=== PATIENT | male | born 1955 | race African-American/Black ===

== ENCOUNTER 2016-09-25 13:43 | Inpatient (IN) | payer OTHER, SELFPAY ==
[~2016-09-25] VITALS: Ht 172.7 cm; Wt 59.9 kg
[~2016-09-25 13:43] MED LIST: UNOBMED
[2016-09-25] MEDS ORDERED: Albuterol ud Inhalation HHN ONE (14:15)
--- NOTE | 2016-09-25 14:28 | Emergency Room Report ---
History of Present Illness General Chief Complaint: Altered Mental Status Source: Patient, EMS Present Illness HPI 61 [address] by EMS for ?AMS. Initially patient allegedly non verbal. To me, he is providing HPI. Endorses undomiciled. Denies smoking, ETOH , drugs or known medical problems. Denies chest pain, abd pain. Endorses + cough. Denies urinary complaints, URI symptoms. Feels well otherwise. Allergies: Coded Allergies: No Known Allergies (Verified , 01/25/10) Patient History Past Medical History: none Past Surgical History: none Pertinent Family History: none Social History: Denies: alcohol use, drug use, smoking Immunizations: UTD Reviewed Nursing Documentation: PMH: Agreed, PSxH: Agreed Nursing Documentation-PMH Past Medical History: No History, Except For Hx Seizures: Yes Review of Systems All Other Systems: negative except mentioned in HPI Physical Exam Vital Signs Date Time Temp Pulse Resp B/P Pulse Ox O2 Delivery O2 Flow Rate FiO2 09/25/16 13:36 102.0 116 20 168/99 96 Room Air Sp02 EP Interpretation: abnormal General Appearance: normal inspection, well appearing, no apparent distress, alert, GCS 15, non-toxic, other - disheveled, malodorous Head: normocephalic, atraumatic Eyes: bilateral eye EOMI, bilateral eye PERRL ENT: normal ENT inspection, hearing grossly normal, normal voice Neck: normal inspection, full range of motion, supple, no bony tend Respiratory: normal inspection, decreased breath sounds, wheezing Cardiovascular #1: tachycardia Gastrointestinal: normal inspection, normal bowel sounds, non tender, soft, no guarding, no hernia Genitourinary: no CVA tenderness Musculoskeletal: normal inspection, back normal, normal range of motion, Valente' s Sign negative Neurologic: normal inspection, alert, responsive, manager semiconductor III-XII nml as tested, speech normal Psychiatric: normal inspection, judgement/insight normal, mood/affect normal Medical Decision Making Diagnostic Impression: Primary Impression: Altered level of consciousness Additional Impressions: Fever Qualified Codes: R50.9 - Fever, unspecified Pneumonia Qualified Codes: J18.9 - Pneumonia, unspecified organism ER Course 61 YO M with ?AMS. VS notable for tachycardia, fever. Hypertensive. No focal neuro deficits. Endorsing cough. Lungs rhocherous. ?PNA Labs: No leuks. H&H stable. Mild HypoNa. Lactate normal CXR: no obvious lobar PNA EKG significant for sinus tachy Fever resolved with IVF hydration, tylenol Patient has not given urine Empiric Abx Levofloxacin given for possible PNA vs UTI vs flu Doubt meningitis as no meningeal signs or focal deficits and well appearance despite disheveled/undomiciled Endorsed to Dr Bailey at 330pm for tele admission EKG Diagnostic Results Rate: tachycardiac Rhythm: NSR ST Segments: no acute changes ASA given to the pt in ED: No Rhythm Strip Diag. Results EP Interpretation: yes Rate: 102 Rhythm: NSR, no PVC's, no ectopy Chest X-Ray Diagnostic Results EP Interpretation: Yes Findings: no effusion, no pneumothorax, no acute cardiopulmonary disease Number of Views: 1 Last Vital Signs Date Time Temp Pulse Resp B/P Pulse Ox O2 Delivery O2 Flow Rate FiO2 09/25/16 13:36 102.0 116 20 168/99 96 Room Air Status: improved Disposition: ADMITTED INPATIENT Condition: Serious Referrals: [facility],REFERRING (PCP) KIM COOK M.D. Sep 25, 2016 14:28
[2016-09-25 15:13] VITALS: BP 183/67
[2016-09-25] MEDS ORDERED: NKM (15:16)
[2016-09-25 15:27] LABS: BASOPHILS % (AUTO) 1.1 % (0.0-2.0); EOSINOPHILS % (AUTO) 0.1 % (0.0-3.0); LYMPHOCYTES % (AUTO) 11.9 % (20.0-45.0); MEAN CORPUSCULAR HEMOGLOBIN 29.6 PG (27.0-31.0); MEAN CORPUSCULAR HGB CONC 32.3 G/DL (32.0-36.0); MEAN CORPUSCULAR VOLUME 92 FL (80-99); MEAN PLATELET VOLUME 5.9 FL (6.5-10.1); MONOCYTES % (AUTO) 10.2 % (1.0-10.0); NEUTROPHILS % (AUTO) 76.8 % (45.0-75.0); PLATELET COUNT 276 K/UL (150-450); RED BLOOD COUNT 4.11 M/UL (4.70-6.10); RED CELL DISTRIBUTION WIDTH 12.1 % (11.6-14.8); WHITE BLOOD COUNT 8.2 K/UL (4.8-10.8)
[2016-09-25 15:33] LABS: ALANINE AMINOTRANSFERASE 13 U/L (3-41); ANION GAP 15 (5-15); ASPARTATE AMINO TRANSFERASE 33 U/L (5-40); CALCIUM 9.1 mg/dL (8.6-10.2); CARBON DIOXIDE 24 mEQ/L (20-30); CHLORIDE 93 mEQ/L (98-107); CREATININE 0.9 mg/dL (0.7-1.2); GLOMERULAR FILTRATION RATE > 60 mL/min (>60); HEMOLYSIS 27; POTASSIUM 4.3 mEQ/L (3.4-4.9); SODIUM 132 mEQ/L (135-145); TOTAL PROTEIN 7.3 g/dL (6.6-8.7)
[2016-09-25 15:42] LABS: TROPONIN I < 0.30 ng/mL (<=0.30)
[2016-09-25] MEDS ORDERED: DuoNeb 0.5-3(2.5)mg/3ml neb HHN PRN (16:00)
[2016-09-25] MEDS ORDERED: Miralax 17gm pkt ORAL PRN (16:00)
[2016-09-25] MEDS ORDERED: Nitroglycerin Subl 0.4mg tab (Bottle Of 25) SL PRN (16:00)
[2016-09-25] MEDS ORDERED: Morphine Sulfate 2mg/ml Inj IVP PRN (16:00)
[2016-09-25 16:04] LABS: APPEARANCE,URINE CLEAR; KETONES,URINE 1+ (NEGATIVE); LEUKOCYTE ESTERASE ,URINE 1+ (NEGATIVE); NITRITE,URINE NEGATIVE (NEGATIVE); PH,URINE 8 (4.5-8.0); PROTEIN,URINE 2+ (NEGATIVE); UROBILINOGEN,URINE 1 MG/DL (0.0-1.0)
[2016-09-25 16:12] LABS: BACTERIA,URINE FEW /HPF; RBC,URINE 0-2 /HPF (0 - 0); WBC,URINE 0-2 /HPF (0 - 0)
[2016-09-25 16:13] VITALS: BP 151/96
--- NOTE | 2016-09-25 16:19 | Diagnostic Imaging Report ---
Indication: SOB Technique: One view of the chest Comparison: none Findings: There is proliferative bony deformity of the right acromion, with bridging bone seen connecting to the coracoid process. The lungs and pleural space are clear. Heart size is normal. Impression: No acute process Right coracoclavicular bony abnormality, could indicate prior trauma or developmental abnormality. Correlate with clinical history
[2016-09-25] MEDS ORDERED: Lidocaine 2% 20mg/ml/Epi 0.005mg/ml 20ml vial ONE (16:41)
[2016-09-25] MEDS ORDERED: Lidocaine 2% MPF 5ml Vial INJ ONE (16:42)
[2016-09-25 18:47] VITALS: BP 141/71
[2016-09-25 20:57] VITALS: BP 138/81
[2016-09-25] MEDS ORDERED: Heparin 5000 units/ml inj SUBQ SCH (21:00)
[2016-09-25] MEDS ORDERED: Cefepime HCl 2 GM in D5W 110 ML IV SCH (21:00)
[2016-09-25 22:45] VITALS: BP 156/94
[2016-09-25] MEDS ORDERED: Vancomycin 1gm in D5W 275ml IVPB SCH (23:00)
[2016-09-25] MEDS ORDERED: Cefepime 2gm ONE (23:28)
[2016-09-25] MEDS: Cefepime HCl 2 GM in D5W 110 ML IV SCH (23:41)
[2016-09-26] MEDS ORDERED: Vancomycin 1gm in D5W 275ml IVPB SCH ×2
[2016-09-26] MEDS ORDERED: Vancomycin 1gm inj IVPB ONE (00:28)
[2016-09-26] MEDS ORDERED: Vancomycin 1 GM in D5W 275 ML IV SCH (00:30)
[2016-09-26 00:34] VITALS: BP 153/95
[2016-09-26 04:00] VITALS: BP 158/89
[2016-09-26 08:07] LABS: BASOPHILS % (AUTO) 1.1 % (0.0-2.0); LYMPHOCYTES % (AUTO) 22.2 % (20.0-45.0); MEAN CORPUSCULAR HEMOGLOBIN 31.1 PG (27.0-31.0); MEAN CORPUSCULAR HGB CONC 34.2 G/DL (32.0-36.0); MEAN CORPUSCULAR VOLUME 91 FL (80-99); MEAN PLATELET VOLUME 6.1 FL (6.5-10.1); NEUTROPHILS % (AUTO) 56.6 % (45.0-75.0); PLATELET COUNT 268 K/UL (150-450); RED BLOOD COUNT 4.02 M/UL (4.70-6.10); RED CELL DISTRIBUTION WIDTH 11.7 % (11.6-14.8); WHITE BLOOD COUNT 4.6 K/UL (4.8-10.8)
[2016-09-26 08:17] VITALS: BP 142/87
[2016-09-26 08:26] LABS: ALANINE AMINOTRANSFERASE 11 U/L (3-41); ALBUMIN/GLOBULIN RATIO 1.1 (1.0-2.7); ANION GAP 14 (5-15); ASPARTATE AMINO TRANSFERASE 29 U/L (5-40); CALCIUM 9.1 mg/dL (8.6-10.2); CARBON DIOXIDE 25 mEQ/L (20-30); CHLORIDE 99 mEQ/L (98-107); CREATININE 0.9 mg/dL (0.7-1.2); GLOMERULAR FILTRATION RATE > 60 mL/min (>60); HEMOLYSIS 8; POTASSIUM 3.7 mEQ/L (3.4-4.9); SODIUM 138 mEQ/L (135-145); TOTAL PROTEIN 6.6 g/dL (6.6-8.7)
[2016-09-26] MEDS ORDERED: Influenza Virus Vaccine 0.5ml IM ONE (09:00)
[2016-09-26] MEDS: Heparin 5000 units/ml inj SUBQ SCH ×3 (09:18→22:05)
[2016-09-26] MEDS: Cefepime HCl 2 GM in D5W 110 ML IV SCH (09:48)
[2016-09-26 11:50] VITALS: BP 128/76
[2016-09-26 12:37] LABS: APPEARANCE,URINE CLEAR; KETONES,URINE 1+ (NEGATIVE); LEUKOCYTE ESTERASE ,URINE NEGATIVE (NEGATIVE); NITRITE,URINE NEGATIVE (NEGATIVE); PH,URINE 6.5 (4.5-8.0); PROTEIN,URINE NEGATIVE (NEGATIVE); UROBILINOGEN,URINE NORMAL MG/DL (0.0-1.0)
[2016-09-26 13:09] LABS: BACTERIA,URINE OCCASIONAL /HPF; RBC,URINE 0-2 /HPF (0 - 0); SQUAMOUS EPITHELIAL CELL,UR OCCASIONAL /LPF (NONE/OCC); WBC,URINE 0-2 /HPF (0 - 0)
--- NOTE | 2016-09-26 15:12 | History and Physical ---
History of Present Illness General Date patient seen: Sep 26, 2016 Reason for Hospitalization: Altered Mental Status Present Illness HPI 61 year old homeless male with hx of seizures was brought in by paramedics b/o ALOC. there is no other history available. Pt was awake on arrival in ER. Initially patient was allegedly non verbal. He also complains of some cough. Denies urinary complaints, URI symptoms. Allergies: Coded Allergies: No Known Allergies (Verified , 01/25/10) Medication History Scheduled No Known Medications* (NKM - No Known Medications*), 0 ., (Reported) Miscellaneous Medications Unable to Obtain Medications (Unable To Obtain Meds), (Reported) Patient History Healthcare decision maker Resuscitation status Full Code Advanced Directive on File Past Medical/Surgical History Past Medical/Surgical History: (1) Homelessness (2) Seizure disorder Review of Systems All Other Systems: negative except mentioned in HPI Physical Exam Lines, tubes and drains: peripheral HEENT: normocephalic, atraumatic Neck: non-tender, supple Respiratory/Chest: chest wall non-tender, lungs clear Cardiovascular/Chest: normal peripheral pulses, normal rate Abdomen: normal bowel sounds, non tender Genitourinary/Rectal: normal genital exam Last 24 Hour Vital Signs Date Time Temp Pulse Resp B/P Pulse Ox O2 Delivery O2 Flow Rate FiO2 09/26/16 11:50 100.2 78 18 128/76 97 Room Air 09/26/16 08:17 97.7 93 18 142/87 98 Room Air 09/26/16 08:00 88 09/26/16 04:00 81 09/26/16 04:00 98.0 80 20 158/89 98 Room Air 09/26/16 00:34 97.7 87 20 153/95 97 Room Air 09/25/16 22:45 98.2 89 20 156/94 100 Room Air 09/25/16 22:10 102 20 141/71 100 Room Air 09/25/16 20:57 98.2 103 24 138/81 100 Room Air 09/25/16 18:47 98.5 107 20 141/71 100 Room Air 09/25/16 16:13 98.6 112 18 151/96 100 Room Air 09/25/16 15:42 98.6 09/25/16 15:13 99.2 109 20 183/67 100 Room Air Intake and Output 09/25/16 09/26/16 19:00 07:00 Intake Total 150 ml 385.0 ml Balance 150 ml 385.0 ml IV Total 150 ml 385.0 ml # Voids 3 Laboratory Tests Test 09/25/16 15:40 09/26/16 06:20 09/26/16 09:30 Urine Color Yellow Pale yellow Urine Appearance Clear Clear Urine pH 8 (4.5-8.0) 6.5 (4.5-8.0) Urine Specific [place] 1.010 (1.005-1.035) 1.010 (1.005-1.035) Urine Protein 2+ (NEGATIVE) H Negative (NEGATIVE) Urine Glucose (UA) Negative (NEGATIVE) Negative (NEGATIVE) Urine Ketones 1+ (NEGATIVE) H 1+ (NEGATIVE) H Urine Occult Blood 1+ (NEGATIVE) H Negative (NEGATIVE) Urine Nitrite Negative (NEGATIVE) Negative (NEGATIVE) Urine Bilirubin Negative (NEGATIVE) Negative (NEGATIVE) Urine Urobilinogen 1 MG/DL (0.0-1.0) H Normal MG/DL (0.0-1.0) Urine Leukocyte Esterase 1+ (NEGATIVE) H Negative (NEGATIVE) Urine RBC 0-2 /HPF (0 - 0) H 0-2 /HPF (0 - 0) H Urine WBC 0-2 /HPF (0 - 0) 0-2 /HPF (0 - 0) Urine Squamous Epithelial Cells None /LPF (NONE/OCC) Occasional /LPF Urine Bacteria Few /HPF (NONE) Occasional /HPF (NONE) White Blood Count 4.6 K/UL (4.8-10.8) L Red Blood Count 4.02 M/UL (4.70-6.10) L Hemoglobin 12.5 G/DL (14.2-18.0) L Hematocrit 36.6 % (42.0-52.0) L Mean Corpuscular Volume 91 FL (80-99) Mean Corpuscular Hemoglobin 31.1 PG (27.0-31.0) H Mean Corpuscular Hemoglobin Concent 34.2 G/DL (32.0-36.0) Red Cell Distribution Width 11.7 % (11.6-14.8) Platelet Count 268 K/UL (150-450) Mean Platelet Volume 6.1 FL (6.5-10.1) L Neutrophils (%) (Auto) 56.6 % (45.0-75.0) Lymphocytes (%) (Auto) 22.2 % (20.0-45.0) Monocytes (%) (Auto) 19.0 % (1.0-10.0) H Eosinophils (%) (Auto) 1.0 % (0.0-3.0) Basophils (%) (Auto) 1.1 % (0.0-2.0) Sodium Level 138 mEQ/L (135-145) Potassium Level 3.7 mEQ/L (3.4-4.9) Chloride Level 99 mEQ/L (98-107) Carbon Dioxide Level 25 mEQ/L (20-30) Anion Gap 14 (5-15) Blood Urea Nitrogen 7 mg/dL (7-23) Creatinine 0.9 mg/dL (0.7-1.2) Estimat Glomerular Filtration Rate > 60 mL/min (>60) Glucose Level 81 mg/dL (74-106) Calcium Level 9.1 mg/dL (8.6-10.2) Total Bilirubin 0.6 mg/dL (0.0-1.2) Aspartate Amino Transf (AST/SGOT) 29 U/L (5-40) Alanine Aminotransferase (ALT/SGPT) 11 U/L (3-41) Alkaline Phosphatase 59 U/L (40-129) Total Protein 6.6 g/dL (6.6-8.7) Albumin 3.5 g/dL (3.5-5.2) Globulin 3.1 g/dL Albumin/Globulin Ratio 1.1 (1.0-2.7) HIV (1&2) Antibody Rapid Negative (NEGATIVE) Height (Feet): 5 Height (Inches): 8.00 Weight (Pounds): 132 Medications Current Medications Medications (Trade) Dose Ordered Sig/Abbi Route PRN Reason Start Time Stop Time Status Last Admin Dose Admin Acetaminophen (Tylenol) 650 mg Q4H PRN ORAL fever 09/25/16 16:00 10/25/16 15:59 Albuterol/ Ipratropium (DuoNeb 0.5-3(2.5)mg/3ml) 3 ml Q4H PRN HHN Shortness of Breath 09/25/16 16:00 09/30/16 15:59 Heparin Sodium (Porcine) (Heparin 5000 units/ml) 5,000 units EVERY 12 HOURS SUBQ 09/26/16 00:00 10/26/16 00:00 09/26/16 09:18 Morphine Sulfate (Morphine Sulfate) 2 mg Q4H PRN IVP Moderate Pain (Pain Scale 4-6) 09/25/16 16:00 10/02/16 15:59 Nitroglycerin (Ntg) 0.4 mg Q5MIN X 3 DOSES PRN SL Prn Chest Pain 09/25/16 16:00 10/25/16 15:59 Ondansetron HCl (Zofran) 4 mg Q6H PRN IVP Nausea & Vomiting 09/25/16 16:00 10/25/16 15:59 Polyethylene Glycol (Miralax) 17 gm DAILYPRN PRN ORAL Constipation 09/25/16 16:00 10/25/16 15:59 Temazepam (Restoril) 15 mg HSPRN PRN ORAL Insomnia 09/25/16 16:00 10/02/16 15:59 Assessment/Plan Problem List: (1) Uncontrolled seizures ICD Codes: R56.9 - Unspecified convulsions SNOMED: 76296862 (2) Altered level of consciousness ICD Codes: R40.4 - Transient alteration of awareness SNOMED: 9575673 (3) Homelessness ICD Codes: Z59.0 - Homelessness SNOMED: 68448381 Assessment/Plan neuro evaluation social service evaluation med/surg IVY CONNELLY Sep 26, 2016 15:12
[2016-09-26 16:00] VITALS: BP 143/80
--- NOTE | 2016-09-26 17:34 | Neurology Progress Note ---
Objective Physical Exam Last Vital Signs Date Time Temp Pulse Resp B/P Pulse Ox O2 Delivery O2 Flow Rate FiO2 09/26/16 16:00 97.7 69 18 143/80 100 Room Air Laboratory Tests Test 09/26/16 06:20 09/26/16 09:30 White Blood Count 4.6 K/UL (4.8-10.8) L Red Blood Count 4.02 M/UL (4.70-6.10) L Hemoglobin 12.5 G/DL (14.2-18.0) L Hematocrit 36.6 % (42.0-52.0) L Mean Corpuscular Volume 91 FL (80-99) Mean Corpuscular Hemoglobin 31.1 PG (27.0-31.0) H Mean Corpuscular Hemoglobin Concent 34.2 G/DL (32.0-36.0) Red Cell Distribution Width 11.7 % (11.6-14.8) Platelet Count 268 K/UL (150-450) Mean Platelet Volume 6.1 FL (6.5-10.1) L Neutrophils (%) (Auto) 56.6 % (45.0-75.0) Lymphocytes (%) (Auto) 22.2 % (20.0-45.0) Monocytes (%) (Auto) 19.0 % (1.0-10.0) H Eosinophils (%) (Auto) 1.0 % (0.0-3.0) Basophils (%) (Auto) 1.1 % (0.0-2.0) Sodium Level 138 mEQ/L (135-145) Potassium Level 3.7 mEQ/L (3.4-4.9) Chloride Level 99 mEQ/L (98-107) Carbon Dioxide Level 25 mEQ/L (20-30) Anion Gap 14 (5-15) Blood Urea Nitrogen 7 mg/dL (7-23) Creatinine 0.9 mg/dL (0.7-1.2) Estimat Glomerular Filtration Rate > 60 mL/min (>60) Glucose Level 81 mg/dL (74-106) Calcium Level 9.1 mg/dL (8.6-10.2) Total Bilirubin 0.6 mg/dL (0.0-1.2) Aspartate Amino Transf (AST/SGOT) 29 U/L (5-40) Alanine Aminotransferase (ALT/SGPT) 11 U/L (3-41) Alkaline Phosphatase 59 U/L (40-129) Total Protein 6.6 g/dL (6.6-8.7) Albumin 3.5 g/dL (3.5-5.2) Globulin 3.1 g/dL Albumin/Globulin Ratio 1.1 (1.0-2.7) HIV (1&2) Antibody Rapid Negative (NEGATIVE) Urine Color Pale yellow Urine Appearance Clear Urine pH 6.5 (4.5-8.0) Urine Specific [place] 1.010 (1.005-1.035) Urine Protein Negative (NEGATIVE) Urine Glucose (UA) Negative (NEGATIVE) Urine Ketones 1+ (NEGATIVE) H Urine Occult Blood Negative (NEGATIVE) Urine Nitrite Negative (NEGATIVE) Urine Bilirubin Negative (NEGATIVE) Urine Urobilinogen Normal MG/DL (0.0-1.0) Urine Leukocyte Esterase Negative (NEGATIVE) Urine RBC 0-2 /HPF (0 - 0) H Urine WBC 0-2 /HPF (0 - 0) Urine Squamous Epithelial Cells Occasional /LPF Urine Bacteria Occasional /HPF (NONE) Impression/Recommendations Problems: (1) Transient confusion state, r/o ETOH withdrawal, doubt sz activity (2) h/o chronic seizure disorder (3) noncompliance (4) Homelessness Status: stable Recommendations #[id number] DESI ANTHONY Sep 26, 2016 17:34
--- NOTE | 2016-09-26 18:57 | Consultation ---
DATE OF CONSULTATION: INFECTIOUS DISEASE CONSULTATION CONSULTING PHYSICIAN: Guy Castro M.D. REFERRING PHYSICIAN: Anthony Bailey M.D. REASON FOR CONSULTATION: The patient for possible sepsis in the setting of altered level of consciousness and p.r.n. antibiotic management. HISTORY OF PRESENT ILLNESS: The patient is a 61-year-old male who was admitted with altered level of consciousness, however, the patient does not recall what exactly happened. The patient gave me a history of having seizures, resolved in the past. The patient has history of alcohol abuse and also smokes marijuana. At that time, the patient had a fever of 102. Infectious Disease consultation has been requested for further evaluation of the patient's antibiotic management. PAST MEDICAL HISTORY: History of seizure disorder. SOCIAL HISTORY: Significant for alcohol abuse and marijuana abuse. FAMILY HISTORY: Noncontributory. REVIEW OF SYSTEMS: HEENT: No recent change in vision or hearing. Pulmonary: The patient of occasional cough. Cardiovascular: No chest pain or palpitations. Gastrointestinal: Abdomen, no nausea or vomiting. Genitourinary: No dysuria. Musculoskeletal: No pain in extremity. PHYSICAL EXAMINATION: VITAL SIGNS: Temperature 98 degrees, pulse 86, respiratory rate 18, and blood pressure 142/87. HEENT: Mild conjunctiva. No icterus. NECK: No lymphadenopathy. CHEST: Coarse breathing sounds. HEART: S1 and S2. ABDOMEN: Soft. EXTREMITIES: No cyanosis. NEUROLOGIC: Awake and alert. LABORATORY AND DIAGNOSTIC DATA: White blood cells 4.6, hemoglobin 12.5 and platelets 268,000. Urinalysis unremarkable. BUN 10 and creatinine 0.9. Chest x-ray, right clavicular bony abnormality, [facility]. ASSESSMENT: The patient is a 61-year-old male with multiple medical problems who has been admitted to this medical center due to altered level of consciousness. I am suspicious that the patient's seizure activity, as the patient had only one spike of fever that can be explained by the seizure, however, the patient does not have any other symptoms, did not have any sickness or fever or chills prior to admission. At this time, the patient can be monitored off of antibiotics and if patient has further spike of fever or positive culture, we can start the patient on antibiotic treatment. PLAN: 1. We will hold off of antibiotics. 2. Monitor CBC. 3. Monitor BMP. 4. Monitor urine culture. 5. Based on the patient's clinical course and laboratories, we will do further recommendations. 6. Check HIV test on the patient. Thank you, Dr. Bailey, for allowing me to participate in the care of this patient. I will follow the patient with you during this hospitalization. Guy Castro M.D. DR: BEST JOB#: [id number] CC:
[2016-09-26 20:00] VITALS: BP 138/87
[2016-09-27] VITALS: BP 146/99
--- NOTE | 2016-09-27 01:38 | Consultation ---
DATE OF CONSULTATION: 09/26/2016 NEUROLOGICAL CONSULTATION: REQUESTING PHYSICIAN: Anthony Bailey M.D. HISTORY OF PRESENT ILLNESS: This is a 61 years old homeless man seen in neurological consultation after the patient reportedly had changes in mental status being nonverbal. Upon arrival to the emergency room, he was able to provide with some history. He denies most of the medical issues except having cough. His vital signs included blood pressure 168/99, temperature 102 degrees, and heart rate 116. Chest x-ray, there is no evidence of pneumonia. EKG, sinus tachycardia. The patient was given IV fluids, hydration, Tylenol . He was also started empirically on levofloxacin. EKG normal sinus rhythm with tachycardia. Blood work included mild anemia, hemoglobin 12.2 and hematocrit 37.7. Chemistry panel with sodium 142 and CK of 252. Urinalysis with 1+ ketones and 2+ protein. Chest x-ray, no acute disease, right clavicular bony abnormality trauma . Since admission to present, his condition remained stable. PAST MEDICAL HISTORY: The patient has a history of seizure disorder once a year, the last medication taken several months ago. No seizures since. He was on Dilantin and not sure with the dose. History of depression, but no medication at present time. He admit having drinking hard liquors and cheap briseyda as much as he can get. He is a smoker predominantly marihuana. No illicit drugs. SOCIAL HISTORY: The patient indicated he is homeless since 1991 " got worse". He claims though that he has his own place." FAMILY HISTORY: Unavailable. REVIEW OF SYMPTOMS: This time, the patient is feeling "so denying no headache or dizziness. No chest pain. No palpitations, but indicated he would get some rest. PHYSICAL EXAMINATION: GENERAL: This is a well-developed, somewhat disheveled man, watching TV. VITAL SIGNS: Now stable. Blood pressure 143/80 and temperature 97.7 degrees. HEENT: Head normocephalic. No evidence of trauma. Eyes, ears, and throat are clear. NECK: Supple. No meningeal signs. MUSCULOSKELETAL: Unremarkable. There is no deformities. Peripheral pulses 1+ symmetric. MENTAL STATUS: The patient is alert and oriented x3. Speech is fluent. Language intact. No aphasia. No apraxia. He is poor historian. Emotional and appropriate. CRANIAL NERVES: Cranial Nerves II: Pupils both responding to light and accommodation. Extraocular movement intact. No nystagmus. CRANIAL NERVES V: Normal corneal responses. CRANIAL NERVES VII: No facial asymmetry. CRANIAL NERVES VIII: Grossly normal hearing. CRANIAL NERVES IX THROUGH XII: Tongue is midline. Symmetric palate elevation. MOTOR EXAMINATION: Normal muscle tone. Strength 5/5 in all extremities. No involuntary movement. Deep reflexes 1+ symmetric with downgoing toes on both sides. SENSORY EXAMINATION: Normal to pinprick. Gait not tested. The patient indicated he was preferred to stay in bed. IMPRESSION: The patient is a 61-year-old man with, 1. History of transient confusional state rule out alcohol withdrawal rule out nonconvulsive seizure activity. 2. History of chronic seizure disorder. 3. History of psychiatric disorder. 4. Hyponatremia. 5. Mild anemia. RECOMMENDATIONS: 1. The patient to start on Dilantin 300 mg daily. 2. Thiamine 100 mg daily. 3. The patient advised on to reduce alcohol intake. 4. The patient advised to contact [facility] for better placement. Thank you for allowing me to see this interesting patient in neurological consultation . Girma Mina M.D. DR: Puja JOB#: [id number] CC:
[2016-09-27 04:00] VITALS: BP 138/73
[2016-09-27 08:27] VITALS: BP 150/98
[2016-09-27] MEDS: Heparin 5000 units/ml inj SUBQ SCH (09:00)
--- NOTE | 2016-09-27 09:32 | Diagnostic Imaging Report ---
Indications: Altered mental status Technique: Spiral acquisitions obtained through the brain. Angled axial and coronal 5 x 5 mm slices were reconstructed. Total dose length product 1382 mGycm. CTDI vol(s) 70 mGy Comparison: 02/03/2010 Findings: Cutaneous lesion in the right parietal scalp is again demonstrated. Area of encephalomalacia in the inferior right inferior frontal lobe is again demonstrated. This is associated with some dystrophic calcification There is age-related enlargement of the ventricles and extra-axial CSF spaces. The calvarium is intact. The included sinuses are clear. Included orbits are unremarkable. There is no significant interim change Impression: Negative for acute intracranial bleed or mass effect. 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
--- NOTE | 2016-09-27 10:48 | Infectious Diseases Prog Note ---
Assessment/Plan Assessment/Plan A: The patient is a 61-year-old male w Fever improved but had low grade fever yesterday possible Asp Pna occasional cough Chest x-ray: [facility] ALOC Hx of Seizures Hx of alcohol abuse and marijuana. PLAN: start pt on Augmentin d# Monitor CBC Monitor BMP Monitor urine culture HIV test Subjective Constitutional: Denies: anorexia, chills, drenching sweats, fatigue, fever, no symptoms, other Allergies: Coded Allergies: No Known Allergies (Verified , 01/25/10) Objective Vital Signs Last 24 Hour Vital Signs Date Time Temp Pulse Resp B/P Pulse Ox O2 Delivery O2 Flow Rate FiO2 09/27/16 08:27 97.3 91 20 150/98 98 Room Air 09/27/16 04:00 97.6 60 18 138/73 99 Room Air 09/27/16 04:00 75 09/27/16 00:00 96.8 78 20 146/99 98 Room Air 09/27/16 00:00 84 09/26/16 20:00 72 09/26/16 20:00 98.1 72 18 138/87 99 Room Air 09/26/16 16:00 97.7 69 18 143/80 100 Room Air 09/26/16 16:00 74 09/26/16 12:00 78 09/26/16 11:50 100.2 78 18 128/76 97 Room Air Height (Feet): 5 Height (Inches): 8.00 Weight (Pounds): 132 HEENT: mucous membranes moist Respiratory/Chest: no accessory muscle use Cardiovascular: no gallop/murmur Abdomen: non distended Microbiology Date/Time Source Procedure Growth Status 09/25/16 15:00 Blood Blood Culture - Preliminary NO GROWTH AFTER 24 HOURS Resulted 09/25/16 14:45 Blood Blood Culture - Preliminary NO GROWTH AFTER 24 HOURS Resulted 09/25/16 15:39 Nasal Nares MRSA Culture - Final NO METHICILLIN RESISTANT STAPH AUREUS... Complete 09/25/16 15:39 Rectum VRE Culture - Final NO VANCOMYCIN RESISTANT ENTEROCOCCUS ... Complete Current Medications Medications (Trade) Dose Ordered Sig/Abbi Route PRN Reason Start Time Stop Time Status Last Admin Dose Admin Acetaminophen (Tylenol) 650 mg Q4H PRN ORAL fever 09/25/16 16:00 10/25/16 15:59 Albuterol/ Ipratropium (DuoNeb 0.5-3(2.5)mg/3ml) 3 ml Q4H PRN HHN Shortness of Breath 09/25/16 16:00 09/30/16 15:59 Heparin Sodium (Porcine) (Heparin 5000 units/ml) 5,000 units EVERY 12 HOURS SUBQ 09/26/16 00:00 10/26/16 00:00 09/26/16 22:05 Morphine Sulfate (Morphine Sulfate) 2 mg Q4H PRN IVP Moderate Pain (Pain Scale 4-6) 09/25/16 16:00 10/02/16 15:59 Nitroglycerin (Ntg) 0.4 mg Q5MIN X 3 DOSES PRN SL Prn Chest Pain 09/25/16 16:00 10/25/16 15:59 Ondansetron HCl (Zofran) 4 mg Q6H PRN IVP Nausea & Vomiting 09/25/16 16:00 10/25/16 15:59 Polyethylene Glycol (Miralax) 17 gm DAILYPRN PRN ORAL Constipation 09/25/16 16:00 10/25/16 15:59 Temazepam (Restoril) 15 mg HSPRN PRN ORAL Insomnia 09/25/16 16:00 10/02/16 15:59 ALEJANDRA TEE M.D. Sep 27, 2016 10:48
[2016-09-27 11:52] VITALS: BP 133/71
--- NOTE | 2016-09-27 12:15 | Pulmonology Progress Note ---
Assessment/Plan Problems: (1) Uncontrolled seizures (2) Altered level of consciousness (3) Homelessness Assessment/Plan improving pt wants to go home/street Subjective ROS Limited/Unobtainable: No Constitutional: Reports: no symptoms HEENT: Repors: no symptoms Respiratory: Reports: no symptoms Cardiovascular: Reports: no symptoms Allergies: Coded Allergies: No Known Allergies (Verified , 01/25/10) Objective Last 24 Hour Vital Signs Date Time Temp Pulse Resp B/P Pulse Ox O2 Delivery O2 Flow Rate FiO2 09/27/16 11:52 97.5 95 20 133/71 98 Room Air 09/27/16 08:27 97.3 91 20 150/98 98 Room Air 09/27/16 04:00 97.6 60 18 138/73 99 Room Air 09/27/16 04:00 75 09/27/16 00:00 96.8 78 20 146/99 98 Room Air 09/27/16 00:00 84 09/26/16 20:00 72 09/26/16 20:00 98.1 72 18 138/87 99 Room Air 09/26/16 16:00 97.7 69 18 143/80 100 Room Air 09/26/16 16:00 74 Intake and Output 09/26/16 09/27/16 19:00 07:00 Intake Total 240 ml 120 ml Output Total 300 ml Balance -60 ml 120 ml Intake Oral 240 ml 120 ml Output Urine Total 300 ml # Voids 1 12 General Appearance: WD/WN HEENT: atraumatic Respiratory/Chest: chest wall non-tender, normal breath sounds Cardiovascular: normal peripheral pulses, normal rate Abdomen: normal bowel sounds, soft, non tender Extremities: no cyanosis Skin: no rash Microbiology Date/Time Source Procedure Growth Status 09/25/16 15:00 Blood Blood Culture - Preliminary NO GROWTH AFTER 24 HOURS Resulted 09/25/16 14:45 Blood Blood Culture - Preliminary NO GROWTH AFTER 24 HOURS Resulted 09/25/16 15:39 Nasal Nares MRSA Culture - Final NO METHICILLIN RESISTANT STAPH AUREUS... Complete 09/25/16 15:39 Rectum VRE Culture - Final NO VANCOMYCIN RESISTANT ENTEROCOCCUS ... Complete Current Medications Medications (Trade) Dose Ordered Sig/Abbi Route PRN Reason Start Time Stop Time Status Last Admin Dose Admin Acetaminophen (Tylenol) 650 mg Q4H PRN ORAL fever 09/25/16 16:00 10/25/16 15:59 Albuterol/ Ipratropium (DuoNeb 0.5-3(2.5)mg/3ml) 3 ml Q4H PRN HHN Shortness of Breath 09/25/16 16:00 09/30/16 15:59 Amoxicillin/ Clavulanate Potassium (Augmentin) 875 mg Q12HR ORAL 09/27/16 13:00 10/04/16 12:59 Heparin Sodium (Porcine) (Heparin 5000 units/ml) 5,000 units EVERY 12 HOURS SUBQ 09/26/16 00:00 10/26/16 00:00 09/26/16 22:05 Morphine Sulfate (Morphine Sulfate) 2 mg Q4H PRN IVP Moderate Pain (Pain Scale 4-6) 09/25/16 16:00 10/02/16 15:59 Nitroglycerin (Ntg) 0.4 mg Q5MIN X 3 DOSES PRN SL Prn Chest Pain 09/25/16 16:00 10/25/16 15:59 Ondansetron HCl (Zofran) 4 mg Q6H PRN IVP Nausea & Vomiting 09/25/16 16:00 10/25/16 15:59 Polyethylene Glycol (Miralax) 17 gm DAILYPRN PRN ORAL Constipation 09/25/16 16:00 10/25/16 15:59 Temazepam (Restoril) 15 mg HSPRN PRN ORAL Insomnia 09/25/16 16:00 10/02/16 15:59 IVY CONNELLY Sep 27, 2016 12:15
[2016-09-27] MEDS ORDERED: Augmentin 875mg Tab ORAL SCH (13:00)
[2016-09-27 14:21] LABS: CKMB 3.6 ng/mL (< 6.7)
[2016-09-27] MEDS ORDERED: Tubing IV Secondary IV ONE (15:14)
[2016-09-27] MEDS ORDERED: NS 275ml ONE (15:14)
--- NOTE | 2016-09-28 14:45 | Discharge Summary ---
Discharge Summary Hospital Course Date of Admission Sep 25, 2016 at 14:55 Date of Discharge Sep 27, 2016 at 15:15 Admitting Diagnosis FEVER/SEPSIS/AMS HPI Dirk Murillo is a 61 year old male who was admitted on Sep 25, 2016 at 14:55 for Fever/Sepsis/Altered Mental Status Hospital Course [id number] Discharge Discharge Disposition Patient was discharged to Home (01) Discharge Diagnoses: Nikkie Ramos NP Sep 28, 2016 14:45
--- NOTE | 2016-09-28 15:45 | Cardiology Report ---
APPROVED REPORT EKG Measurement Heart [id number] Sinus tachycardia Possible Anterior infarct, age undetermined Abnormal ECG
--- NOTE | 2016-09-29 00:27 | Discharge Summary 2 SIG ---
DATE OF ADMISSION: 09/25/2016 DATE OF DISCHARGE: 09/27/2016 CONSULTANTS: 1. Guy Castro M.D. 2. Girma Mina M.D. BRIEF HOSPITAL COURSE: The patient is a 61-year-old male with history of seizures, brought in by paramedics, because of altered level of consciousness. On evaluation at ED, temperature was 102 degrees and heart rate 116. Chest x-ray showed no evidence of pneumonia. He was started empirically on levofloxacin. Dr. Castro was consulted. The patient was taken off antibiotics. His symptoms are most probably secondary to seizure event. Dr. Girma Mina was consulted. The patient has had transient confusional state and was started on Dilantin 300 mg daily and thiamine. Head CT was negative for acute intracranial bleed or mass effect with inferior frontal encephalomalacia and prior infarct and other chronic age-related changes. Fever improved, but had low-grade fever concerning for possible aspiration pneumonia. He was eventually started on Augmentin and was eventually discharged home. Social service was contacted to aid in discharge. The patient requested to return to the streets upon discharge. FINAL DIAGNOSES: 1. Uncontrolled seizures. 2. Acute metabolic encephalopathy/altered level of consciousness. 3. Homelessness. 4. Possible aspiration pneumonia. 5. Alcohol abuse and marijuana use. Anthony Bailey M.D. I have been assigned to dictate discharge summary on this account and I was not involved in the patient's management. Nikkie Ramos N.P. DR: HAN JOB#: [id number] CC: NURYS
== END 2016-09-27 15:15 | disposition home or self-care (01) | DRG 53 ==
LOC: ENRESERVDT → ENRESERVTM → EDBD 13:43 → EMR 14:22 → 2E 14:55 → EDBEDREQ 15:43 → 2E 22:58
DX: G40.909 Epilepsy, unspecified, not intractable, without status epilepticus (principal); G93.41 Metabolic encephalopathy; D64.9 Anemia, unspecified; E87.1 Hypo-osmolality and hyponatremia; F10.10 Alcohol abuse, uncomplicated; F12.90 Cannabis use, unspecified, uncomplicated; Z59.0 Homelessness; Z87.898 Personal history of other specified conditions
CPT/HCPCS: 36415; 70450; 71010; 80053; 81001; 81003; 82550; 82553; 83605; 84484; 85025; 86703; 87040; 87081; 93005; 94640; 94664; Q2036

== ENCOUNTER 2017-01-08 11:23 | Inpatient (IN) | payer OTHER ==
[~2017-01-08] VITALS: Ht 170.2 cm; Wt 73.0 kg
[~2017-01-08 11:23] MED LIST changes: +NKM
[2017-01-08 11:31] VITALS: BP 141/92
[2017-01-08 12:24] LABS: MEAN CORPUSCULAR HEMOGLOBIN 28.8 PG (27.0-31.0); MEAN CORPUSCULAR HGB CONC 32.7 G/DL (32.0-36.0); MEAN CORPUSCULAR VOLUME 88 FL (80-99); MEAN PLATELET VOLUME 8.4 FL (6.5-10.1); PLATELET COUNT 170 K/UL (150-450); RED BLOOD COUNT 4.45 M/UL (4.70-6.10); RED CELL DISTRIBUTION WIDTH 14.5 % (11.6-14.8); WHITE BLOOD COUNT 9.7 K/UL (4.8-10.8)
[2017-01-08 12:43] LABS: ALANINE AMINOTRANSFERASE 47 U/L (3-41); ALBUMIN/GLOBULIN RATIO 0.5 (1.0-2.7); ANION GAP 28 (5-15); ASPARTATE AMINO TRANSFERASE 72 U/L (5-40); CALCIUM 9.3 mg/dL (8.6-10.2); CARBON DIOXIDE 17 mEQ/L (20-30); CHLORIDE 85 mEQ/L (98-107); CREATININE 1.4 mg/dL (0.7-1.2); GLOMERULAR FILTRATION RATE > 60 mL/min (>60); HEMOLYSIS 89; LIPASE 45 U/L (< 60); POTASSIUM 5.9 mEQ/L (3.4-4.9); SODIUM 130 mEQ/L (135-145)
[2017-01-08 12:46] LABS: ANISOCYTOSIS 1+; BAND NEUTROPHILS % (MANUAL) 11 % (0-8); BASOPHILS % (MANUAL) 0 % (0-2); EOSINOPHILS % (MANUAL) 0 % (0-3); LYMPHOCYTES % (MANUAL) 9 % (20-45); NEUTROPHILS % (MANUAL) 76 % (45-75); PLATELET ESTIMATE ADEQUATE; PLATELET MORPHOLOGY NORMAL; TOTAL CELLS COUNTED 100
[2017-01-08 12:47] LABS: TOXIC GRANULATION OCCASIONAL
--- NOTE | 2017-01-08 13:17 | Emergency Room Report ---
History of Present Illness General Chief Complaint: Generalized Weakness Source: Patient, EMS Present Illness HPI Patient just with complaints of general weakness Reports that he has not been eating very much Feels dehydrated and weak Denies any focal weakness Denies any headache or visual changes denies any seizure activity Patient does have a history of seizure disorder Reports that he is not taking his medications Denies any dysuria or frequency Denies any obvious fevers Allergies: Coded Allergies: No Known Allergies (Verified , 01/25/10) Patient History Past Medical History: see triage record Pertinent Family History: none Reviewed Nursing Documentation: PMH: Agreed, PSxH: Agreed Nursing Documentation-PMH Past Medical History: No History, Except For Hx Neurological Problems: Yes Hx Seizures: Yes Review of Systems All Other Systems: negative except mentioned in HPI Physical Exam Vital Signs Date Time Temp Pulse Resp B/P Pulse Ox O2 Delivery O2 Flow Rate FiO2 01/08/17 11:24 96.8 117 20 141/92 99 Room Air Sp02 EP Interpretation: reviewed, normal General Appearance: no apparent distress - However the patient is disheveled Head: normocephalic, atraumatic Eyes: bilateral eye EOMI, bilateral eye PERRL ENT: dry mucus membranes Neck: full range of motion, supple Respiratory: decreased breath sounds - Left upper lobe Cardiovascular #1: regular rate, rhythm, no edema Gastrointestinal: non tender, soft Musculoskeletal: normal inspection - No obvious focal weakness however the patient is generally weak Neurologic: alert, oriented x3, responsive Skin: other - Poor skin turgor Lymphatic: no adenopathy Medical Decision Making Diagnostic Impression: Primary Impression: Pleural effusion associated with pulmonary infection Additional Impression: Sepsis ER Course Patient is a fairly complex patient with multiple differential to consideration including but not limited to cardiac cardiopulmonary and vascular emergencies Patient's initial lites are abnormal including high potassium and worsening kidney disease patient with this had chest x-ray obtained which shows significant change in the left upper lobe compared to previous Patient will require further imaging an inpatient care Labs Test 01/08/17 11:30 01/08/17 12:20 01/08/17 14:40 01/08/17 15:38 White Blood Count 9.7 K/UL (4.8-10.8) Red Blood Count 4.45 M/UL (4.70-6.10) Hemoglobin 12.8 G/DL (14.2-18.0) Hematocrit 39.2 % (42.0-52.0) Mean Corpuscular Volume 88 FL (80-99) Mean Corpuscular Hemoglobin 28.8 PG (27.0-31.0) Mean Corpuscular Hemoglobin Concent 32.7 G/DL (32.0-36.0) Red Cell Distribution Width 14.5 % (11.6-14.8) Platelet Count 170 K/UL (150-450) Mean Platelet Volume 8.4 FL (6.5-10.1) Neutrophils (%) (Auto) % (45.0-75.0) Lymphocytes (%) (Auto) % (20.0-45.0) Monocytes (%) (Auto) % (1.0-10.0) Eosinophils (%) (Auto) % (0.0-3.0) Basophils (%) (Auto) % (0.0-2.0) Differential Total Cells Counted 100 Neutrophils % (Manual) 76 % (45-75) Lymphocytes % (Manual) 9 % (20-45) Monocytes % (Manual) 4 % (1-10) Eosinophils % (Manual) 0 % (0-3) Basophils % (Manual) 0 % (0-2) Band Neutrophils 11 % (0-8) Toxic Granulation Occasional Platelet Estimate Adequate Platelet Morphology Normal Anisocytosis 1+ Sodium Level 130 mEQ/L (135-145) Potassium Level 5.9 mEQ/L (3.4-4.9) Chloride Level 85 mEQ/L (98-107) Carbon Dioxide Level 17 mEQ/L (20-30) Anion Gap 28 (5-15) Blood Urea Nitrogen 98 mg/dL (7-23) Creatinine 1.4 mg/dL (0.7-1.2) Estimat Glomerular Filtration Rate > 60 mL/min (>60) Glucose Level 266 mg/dL (74-106) Calcium Level 9.3 mg/dL (8.6-10.2) Total Bilirubin 0.6 mg/dL (0.0-1.2) Aspartate Amino Transf (AST/SGOT) 72 U/L (5-40) Alanine Aminotransferase (ALT/SGPT) 47 U/L (3-41) Alkaline Phosphatase 78 U/L (40-129) Total Protein 8.0 g/dL (6.6-8.7) Albumin 2.9 g/dL (3.5-5.2) Globulin 5.1 g/dL Albumin/Globulin Ratio 0.5 (1.0-2.7) Lipase 45 U/L (< 60) Urine Color Pale yellow Urine Appearance Clear Urine pH 6 (4.5-8.0) Urine Specific Kaplan 1.015 (1.005-1.035) Urine Protein 1+ (NEGATIVE) Urine Glucose (UA) Negative (NEGATIVE) Urine Ketones Negative (NEGATIVE) Urine Occult Blood 2+ (NEGATIVE) Urine Nitrite Negative (NEGATIVE) Urine Bilirubin Negative (NEGATIVE) Urine Urobilinogen Normal MG/DL (0.0-1.0) Urine Leukocyte Esterase Negative (NEGATIVE) Urine RBC 2-4 /HPF (0 - 0) Urine WBC 0-2 /HPF (0 - 0) Urine Squamous Epithelial Cells Occasional /LPF Urine Bacteria Occasional /HPF (NONE) Serum Alcohol 13 mg/dL Lactic Acid Level 4.70 mmol/L (0.66-2.22) 4.20 mmol/L (0.66-2.22) Test 01/08/17 20:40 01/09/17 07:15 01/09/17 15:00 Urine Opiates Screen Negative (NEGATIVE) Urine Barbiturates Screen Negative (NEGATIVE) Phencyclidine (PCP) Screen Negative (NEGATIVE) Urine Amphetamines Screen Negative (NEGATIVE) Urine Benzodiazepines Screen Negative (NEGATIVE) Urine Cocaine Screen Negative (NEGATIVE) Urine Marijuana (THC) Screen Positive (NEGATIVE) White Blood Count 6.9 K/UL (4.8-10.8) Red Blood Count 3.66 M/UL (4.70-6.10) Hemoglobin 10.5 G/DL (14.2-18.0) Hematocrit 32.2 % (42.0-52.0) Mean Corpuscular Volume 88 FL (80-99) Mean Corpuscular Hemoglobin 28.7 PG (27.0-31.0) Mean Corpuscular Hemoglobin Concent 32.6 G/DL (32.0-36.0) Red Cell Distribution Width 14.1 % (11.6-14.8) Platelet Count 133 K/UL (150-450) Mean Platelet Volume 7.8 FL (6.5-10.1) Neutrophils (%) (Auto) 84.5 % (45.0-75.0) Lymphocytes (%) (Auto) 9.4 % (20.0-45.0) Monocytes (%) (Auto) 5.8 % (1.0-10.0) Eosinophils (%) (Auto) 0.0 % (0.0-3.0) Basophils (%) (Auto) 0.2 % (0.0-2.0) Prothrombin Time 11.1 SEC (9.30-11.50) Prothromb Time International Ratio 1.1 (0.9-1.1) Activated Partial Thromboplast Time 34 SEC (23-33) Sodium Level 141 mEQ/L (135-145) Potassium Level 4.3 mEQ/L (3.4-4.9) Chloride Level 104 mEQ/L (98-107) Carbon Dioxide Level 16 mEQ/L (20-30) Anion Gap 21 (5-15) Blood Urea Nitrogen 53 mg/dL (7-23) Creatinine 1.1 mg/dL (0.7-1.2) Estimat Glomerular Filtration Rate > 60 mL/min (>60) Glucose Level 167 mg/dL (74-106) Hemoglobin A1c 5.6 % (< 6.0) Uric Acid 7.5 mg/dL (3.0-7.5) Calcium Level 8.3 mg/dL (8.6-10.2) Phosphorus Level 2.4 mg/dL (2.5-4.8) Magnesium Level 2.7 mg/dL (1.7-2.5) Total Bilirubin 0.6 mg/dL (0.0-1.2) Gamma Glutamyl Transpeptidase 18 U/L (8-61) Aspartate Amino Transf (AST/SGOT) 51 U/L (5-40) Alanine Aminotransferase (ALT/SGPT) 36 U/L (3-41) Alkaline Phosphatase 58 U/L (40-129) Total Creatine Kinase 277 U/L (38-174) C-Reactive Protein, Quantitative 20.3 mg/dL (< 0.5) Pro-B-Type Natriuretic Peptide 2726 pg/mL (0-125) Total Protein 6.1 g/dL (6.6-8.7) Albumin 2.3 g/dL (3.5-5.2) Globulin 3.8 g/dL Albumin/Globulin Ratio 0.6 (1.0-2.7) Triglycerides Level 192 mg/dL (< 150) Cholesterol Level 98 mg/dL (< 200) LDL Cholesterol 53 mg/dL (60-99) HDL Cholesterol 7 mg/dL (> 60) Cholesterol/HDL Ratio 14.0 (3.3-4.4) Vitamin B12 Level 645 pg/mL (211-946) Thyroid Stimulating Hormone (TSH) 1.630 uIU/mL (0.300-4.500) Phenytoin (Dilantin) Level < 0.8 ug/mL (10-20) EKG Diagnostic Results Rate: normal Rhythm: NSR ST Segments: no acute changes Rhythm Strip Diag. Results EP Interpretation: yes Rate: 88 Rhythm: NSR, no PVC's, no ectopy Chest X-Ray Diagnostic Results EP Interpretation: Yes Findings: no effusion, other - Left upper lobe appearance of large mass, elevated left hemidiaphragm heart size normal no obvious bony abnormalities, CT/MRI/US Diagnostic Results CT/MRI/US Diagnostic Results : Impression CT chestImpression: Multiloculated large left pleural effusion. Findings most likely related to previous infection or trauma. Please correlate clinically. Motion artifact Gallstones versus sludge Old trauma involving the right shoulder region. Last Vital Signs Date Time Temp Pulse Resp B/P Pulse Ox O2 Delivery O2 Flow Rate FiO2 01/08/17 11:31 96.8 80 20 141/92 99 Room Air Status: improved Disposition: ADMITTED INPATIENT Condition: Serious Referrals: [facility],REFERRING (PCP) AUGUSTINE KUMAR D.O. January 08, 2017 13:16
[2017-01-08 13:23] LABS: APPEARANCE,URINE CLEAR; KETONES,URINE NEGATIVE (NEGATIVE); LEUKOCYTE ESTERASE ,URINE NEGATIVE (NEGATIVE); NITRITE,URINE NEGATIVE (NEGATIVE); PH,URINE 6 (4.5-8.0); PROTEIN,URINE 1+ (NEGATIVE); UROBILINOGEN,URINE NORMAL MG/DL (0.0-1.0)
--- NOTE | 2017-01-08 13:32 | Diagnostic Imaging Report ---
Indication: Chest Pain Comparison: 09/25/16 A single view chest radiograph was obtained. Findings: There are large convex mass in the upper lateral part of the left hemithorax not seen previously. This is likely a large loculated fluid collection or hematoma. There is volume loss with elevation of the left hemidiaphragm noted. Heart size is normal. The bones are diffusely osteopenic. Old right humeral neck fracture and old fracture dislocation of a.c. joint noted. Impression: Large convex density in the left upper lung field likely loculated pleural fluid or hematoma. Evaluation with CT is suggested. Elevation of the left hemidiaphragm.
[2017-01-08 13:35] LABS: BACTERIA,URINE OCCASIONAL /HPF; SQUAMOUS EPITHELIAL CELL,UR OCCASIONAL /LPF (NONE/OCC); WBC,URINE 0-2 /HPF (0 - 0)
[2017-01-08] MEDS ORDERED: LORazepam Inj 2mg/ml 1ml IV ONE (13:45)
--- NOTE | 2017-01-08 14:07 | Diagnostic Imaging Report ---
Indication: Dyspnea Technique: Continuous helical transaxial imaging of the chest was obtained from the thoracic inlet to the upper abdomen. No intravenous contrast was administered. Coronal 2-D reformats were also obtained. Total Dose length Product (DLP): [address] Dose Index Volume (CTDIvol): 18 mGy Comparison: none Findings: Multiloculated pleural effusion demonstrated in the left hemithorax. Collections are seen at the left lung base ([id number]), lateral to the heart as well as in the left lung apex ([id number]). Radiographically the left lung apex collection is best visualized. A small amount of air is also demonstrated within the pleural collections. There are no signs of chest wall trauma such as a fractured ribs. Radiographically, it appeared the left hemidiaphragm is elevated. In actuality the diaphragm is not elevated and the density is accounted for by a large subpulmonic loculated pleural effusion. The right lung is clear. There is some motion limiting evaluation. Heart is normal in size. Visualized upper abdomen shows gallstones versus sludge. Moderate osteophyte is of the right humeral joint demonstrated. Post fracture deformities of the humerus and distal clavicle are noted. Impression: Multiloculated large left pleural effusion. Findings most likely related to previous infection or trauma. Please correlate clinically. Motion artifact Gallstones versus sludge Old trauma involving the right shoulder region. The CT scanner at [facility] is accredited by the [employer] and the scans are performed using dose optimization techniques as appropriate to a performed exam including Automatic Exposure control.
[2017-01-08] MEDS ORDERED: Promethazine/Codeine 5ml UD ORAL PRN (14:45)
[2017-01-08] MEDS ORDERED: Mylanta II UD 30ml ORAL PRN (14:45)
[2017-01-08] MEDS ORDERED: Miralax 17gm pkt ORAL PRN (14:45)
[2017-01-08] MEDS ORDERED: Nitroglycerin Subl 0.4mg tab (Bottle Of 25) SL PRN (14:45)
[2017-01-08] MEDS ORDERED: DuoNeb 0.5-3(2.5)mg/3ml neb HHN PRN (14:45)
[2017-01-08 14:54] VITALS: BP 158/100
[2017-01-08 15:35] LABS: REFLEX LACTIC ACID YES OR NO YES
[2017-01-08 16:23] VITALS: BP 166/102
--- NOTE | 2017-01-08 19:18 | Consultation ---
Consult Note Consult Note asked to evaluate for renal failure, hyperkalemia and hyponatremia Chief Complaint: Generalized Weakness HPI Patient just with complaints of general weakness Reports that he has not been eating very much Feels dehydrated and weak Denies any focal weakness Denies any headache or visual changes denies any seizure activity Patient does have a history of seizure disorder Reports that he is not taking his medications Denies any dysuria or frequency Denies any obvious fevers Patient examined- data reviewed Discussed with RN . Assessment/Plan status; Acute renal failure Dehydration Hyperkalemia , due to above HypoNatremia due to above Sz disorder Alcohol and drug abuse by history Plan; Borja Hydrate Avoid Nephrotoxics- Monitor lytes and renal parameters Sz percautions SHANNON GOODSON January 08, 2017 19:18
[2017-01-08 20:16] VITALS: BP 132/84
[2017-01-08] MEDS: Cefepime HCl 1 GM in D5W 55 ML IV SCH (21:08)
[2017-01-08] MEDS: Heparin 5000 units/ml inj SUBQ SCH (21:10)
--- NOTE | 2017-01-08 23:34 | History and Physical ---
History of Present Illness General Date patient seen: January 08, 2017 Reason for Hospitalization: Generalized Weakness Present Illness HPI 61 year old male with hx of seizure disorder and ETOH abuse presented with complaints of general weakness. Reports that he has not been eating very much and feels dehydrated and weak. His CXR showed large left effusion. Initial evaluation in ER showed that pt has ATN and being admitted to telemetry for further work up. Allergies: Coded Allergies: No Known Allergies (Verified , 01/25/10) Medication History Scheduled No Known Medications* (NKM - No Known Medications*), 0 ., (Reported) Miscellaneous Medications Unable to Obtain Medications (Unable To Obtain Meds), (Reported) Patient History Healthcare decision maker Resuscitation status Full Code Advanced Directive on File No Past Medical/Surgical History Past Medical/Surgical History: (1) noncompliance (2) Seizure disorder Review of Systems Constitutional: Reports: malaise, weakness Physical Exam General Appearance: cachetic Lines, tubes and drains: peripheral, central line HEENT: normocephalic, atraumatic Neck: non-tender, normal alignment Respiratory/Chest: chest wall non-tender, lungs clear Cardiovascular/Chest: normal peripheral pulses Abdomen: normal bowel sounds Genitourinary/Rectal: normal genital exam, normal rectal exam Extremities: normal range of motion, non-tender Skin Exam: normal pigmentation Last 24 Hour Vital Signs Date Time Temp Pulse Resp B/P Pulse Ox O2 Delivery O2 Flow Rate FiO2 01/08/17 20:16 97.3 122 19 132/84 97 Room Air 01/08/17 16:23 96.9 116 20 166/102 94 Room Air 01/08/17 16:20 117 01/08/17 15:53 117 26 163/91 94 Room Air 01/08/17 14:54 97.1 116 20 158/100 94 Room Air 01/08/17 11:31 96.8 80 20 141/92 99 Room Air 01/08/17 11:24 96.8 117 20 141/92 99 Room Air Laboratory Tests Test 01/08/17 11:30 01/08/17 12:20 01/08/17 14:40 01/08/17 15:38 White Blood Count 9.7 K/UL (4.8-10.8) Red Blood Count 4.45 M/UL (4.70-6.10) L Hemoglobin 12.8 G/DL (14.2-18.0) L Hematocrit 39.2 % (42.0-52.0) L Mean Corpuscular Volume 88 FL (80-99) Mean Corpuscular Hemoglobin 28.8 PG (27.0-31.0) Mean Corpuscular Hemoglobin Concent 32.7 G/DL (32.0-36.0) Red Cell Distribution Width 14.5 % (11.6-14.8) Platelet Count 170 K/UL (150-450) Mean Platelet Volume 8.4 FL (6.5-10.1) Neutrophils (%) (Auto) % (45.0-75.0) Lymphocytes (%) (Auto) % (20.0-45.0) Monocytes (%) (Auto) % (1.0-10.0) Eosinophils (%) (Auto) % (0.0-3.0) Basophils (%) (Auto) % (0.0-2.0) Differential Total Cells Counted 100 Neutrophils % (Manual) 76 % (45-75) H Lymphocytes % (Manual) 9 % (20-45) L Monocytes % (Manual) 4 % (1-10) Eosinophils % (Manual) 0 % (0-3) Basophils % (Manual) 0 % (0-2) Band Neutrophils 11 % (0-8) H Toxic Granulation Occasional Platelet Estimate Adequate Platelet Morphology Normal Anisocytosis 1+ Sodium Level 130 mEQ/L (135-145) L Potassium Level 5.9 mEQ/L (3.4-4.9) H Chloride Level 85 mEQ/L (98-107) L Carbon Dioxide Level 17 mEQ/L (20-30) L Anion Gap 28 (5-15) H Blood Urea Nitrogen 98 mg/dL (7-23) H Creatinine 1.4 mg/dL (0.7-1.2) H Estimat Glomerular Filtration Rate > 60 mL/min (>60) Glucose Level 266 mg/dL (74-106) H Calcium Level 9.3 mg/dL (8.6-10.2) Total Bilirubin 0.6 mg/dL (0.0-1.2) Aspartate Amino Transf (AST/SGOT) 72 U/L (5-40) H Alanine Aminotransferase (ALT/SGPT) 47 U/L (3-41) H Alkaline Phosphatase 78 U/L (40-129) Total Protein 8.0 g/dL (6.6-8.7) Albumin 2.9 g/dL (3.5-5.2) L Globulin 5.1 g/dL Albumin/Globulin Ratio 0.5 (1.0-2.7) L Lipase 45 U/L (< 60) Urine Color Pale yellow Urine Appearance Clear Urine pH 6 (4.5-8.0) Urine Specific Goode 1.015 (1.005-1.035) Urine Protein 1+ (NEGATIVE) H Urine Glucose (UA) Negative (NEGATIVE) Urine Ketones Negative (NEGATIVE) Urine Occult Blood 2+ (NEGATIVE) H Urine Nitrite Negative (NEGATIVE) Urine Bilirubin Negative (NEGATIVE) Urine Urobilinogen Normal MG/DL (0.0-1.0) Urine Leukocyte Esterase Negative (NEGATIVE) Urine RBC 2-4 /HPF (0 - 0) H Urine WBC 0-2 /HPF (0 - 0) Urine Squamous Epithelial Cells Occasional /LPF Urine Bacteria Occasional /HPF (NONE) Serum Alcohol 13 mg/dL Lactic Acid Level 4.70 mmol/L (0.66-2.22) H 4.20 mmol/L (0.66-2.22) H Test 01/08/17 20:40 Urine Opiates Screen Negative (NEGATIVE) Urine Barbiturates Screen Negative (NEGATIVE) Phencyclidine (PCP) Screen Negative (NEGATIVE) Urine Amphetamines Screen Negative (NEGATIVE) Urine Benzodiazepines Screen Negative (NEGATIVE) Urine Cocaine Screen Negative (NEGATIVE) Urine Marijuana (THC) Screen Positive (NEGATIVE) H Urine Legionella Antigen Pending Height (Feet): 5 Height (Inches): 7.00 Weight (Pounds): 114 Medications Current Medications Medications (Trade) Dose Ordered Sig/Abbi Route PRN Reason Start Time Stop Time Status Last Admin Dose Admin Acetaminophen (Tylenol) 650 mg Q4H PRN ORAL fever 01/08/17 14:45 02/07/17 14:44 Albuterol/ Ipratropium 3 ml 3 ml Q4H PRN HHN Shortness of Breath 01/08/17 14:45 01/13/17 14:44 Cefepime HCl/ Dextrose (Maxipime/D5W) 55 ml @ 110 mls/hr Q24H IV 01/08/17 21:00 01/15/17 20:59 01/08/17 21:08 Heparin Sodium (Porcine) (Heparin 5000 units/ml) 5,000 units EVERY 12 HOURS SUBQ 01/08/17 21:00 02/07/17 20:59 01/08/17 21:10 Nitroglycerin (Ntg) 0.4 mg Q5M PRN SL Prn Chest Pain 01/08/17 14:45 02/07/17 14:44 Ondansetron HCl (Zofran) 4 mg Q6H PRN IVP Nausea & Vomiting 01/08/17 14:45 02/07/17 14:44 Polyethylene Glycol (Miralax) 17 gm DAILYPRN PRN ORAL Constipation 01/08/17 14:45 02/07/17 14:44 Promethazine HCl/ Codeine 5 ml 5 ml Q4H PRN ORAL For Cough 01/08/17 14:45 02/07/17 14:44 Sodium Chloride (Sodium Chloride 1000ml bag) 1,000 ml @ 75 mls/hr [id number] IV 01/08/17 20:00 02/07/17 19:59 01/08/17 20:45 Temazepam (Restoril) 15 mg HSPRN PRN ORAL Insomnia 01/08/17 14:45 01/15/17 14:44 Assessment/Plan Problem List: (1) Seizure disorder ICD Codes: G40.909 - Epilepsy, unspecified, not intractable, without status epilepticus SNOMED: 967620344 (2) Empyema ICD Codes: J86.9 - Pyothorax without fistula SNOMED: 573814725 (3) Homelessness ICD Codes: Z59.0 - Homelessness SNOMED: 15675149 (4) noncompliance (5) h/o chronic seizure disorder (6) Altered level of consciousness ICD Codes: R40.4 - Transient alteration of awareness SNOMED: 0733634 Assessment/Plan iv antibiotics thoracenteis IV fluids renal w/u thoracic evaluation IVY CONNELLY January 08, 2017 23:34
[2017-01-09 00:06] VITALS: BP 140/79
[2017-01-09 03:54] VITALS: BP 156/76
[2017-01-09 07:45] LABS: BASOPHILS % (AUTO) 0.2 % (0.0-2.0); LYMPHOCYTES % (AUTO) 9.4 % (20.0-45.0); MEAN CORPUSCULAR HEMOGLOBIN 28.7 PG (27.0-31.0); MEAN CORPUSCULAR HGB CONC 32.6 G/DL (32.0-36.0); MEAN CORPUSCULAR VOLUME 88 FL (80-99); MEAN PLATELET VOLUME 7.8 FL (6.5-10.1); MONOCYTES % (AUTO) 5.8 % (1.0-10.0); NEUTROPHILS % (AUTO) 84.5 % (45.0-75.0); PLATELET COUNT 133 K/UL (150-450); RED BLOOD COUNT 3.66 M/UL (4.70-6.10); RED CELL DISTRIBUTION WIDTH 14.1 % (11.6-14.8); WHITE BLOOD COUNT 6.9 K/UL (4.8-10.8)
[2017-01-09 07:55] LABS: INR 1.1 (0.9-1.1); PROTHROMBIN TIME 11.1 SEC (9.30-11.50)
[2017-01-09 07:59] VITALS: BP 147/88
[2017-01-09 08:02] LABS: ALANINE AMINOTRANSFERASE 36 U/L (3-41); ALBUMIN/GLOBULIN RATIO 0.6 (1.0-2.7); ANION GAP 21 (5-15); ASPARTATE AMINO TRANSFERASE 51 U/L (5-40); CALCIUM 8.3 mg/dL (8.6-10.2); CARBON DIOXIDE 16 mEQ/L (20-30); CHLORIDE 104 mEQ/L (98-107); CHOLESTEROL 98 mg/dL (< 200); CREATININE 1.1 mg/dL (0.7-1.2); CRP QUANT 20.3 mg/dL (< 0.5); GLOMERULAR FILTRATION RATE > 60 mL/min (>60); HEMOLYSIS 0; LDL CHOLESTEROL (CALC.) 53 mg/dL (60-99); MAGNESIUM 2.7 mg/dL (1.7-2.5); PHOSPHORUS 2.4 mg/dL (2.5-4.8); POTASSIUM 4.3 mEQ/L (3.4-4.9); SODIUM 141 mEQ/L (135-145); TOTAL PROTEIN 6.1 g/dL (6.6-8.7); URIC ACID 7.5 mg/dL (3.0-7.5)
[2017-01-09] MEDS: Heparin 5000 units/ml inj SUBQ SCH ×2 (08:20→21:00)
[2017-01-09 08:28] LABS: HEMOGLOBIN A1C 5.6 % (< 6.0)
--- NOTE | 2017-01-09 08:42 | Pulmonology Progress Note ---
Assessment/Plan Problems: (1) Empyema (2) ATN (acute tubular necrosis) (3) Seizure disorder (4) Homelessness (5) noncompliance (6) h/o chronic seizure disorder (7) Altered level of consciousness Assessment/Plan renal function improving d/w thoracic continue abx f/u renal function Subjective ROS Limited/Unobtainable: No Interval Events: feeling better Allergies: Coded Allergies: No Known Allergies (Verified , 01/25/10) Objective Last 24 Hour Vital Signs Date Time Temp Pulse Resp B/P Pulse Ox O2 Delivery O2 Flow Rate FiO2 01/09/17 07:59 99.7 126 20 147/88 97 Room Air 01/09/17 04:00 122 01/09/17 03:54 98.5 127 22 156/76 94 Room Air 01/09/17 00:06 98.8 133 20 140/79 94 Room Air 01/09/17 00:00 132 01/08/17 20:16 97.3 122 19 132/84 97 Room Air 01/08/17 20:00 129 01/08/17 16:23 96.9 116 20 166/102 94 Room Air 01/08/17 16:20 117 01/08/17 15:53 117 26 163/91 94 Room Air 01/08/17 14:54 97.1 116 20 158/100 94 Room Air 01/08/17 11:31 96.8 80 20 141/92 99 Room Air 01/08/17 11:24 96.8 117 20 141/92 99 Room Air Intake and Output 01/08/17 01/09/17 19:00 07:00 Intake Total 1460 ml 690 ml Output Total 1300 ml Balance 1460 ml -610 ml Intake Oral 360 ml IV Total 1100 ml 690 ml Output Urine Total 1300 ml # Bowel Movements 1 General Appearance: cachetic HEENT: normocephalic, anicteric Respiratory/Chest: chest wall non-tender, decreased breath sounds Cardiovascular: normal peripheral pulses, normal rate Abdomen: normal bowel sounds, soft, non tender, no scars Extremities: no cyanosis Skin: no ulcers Lymphatic: no neck adenopathy, no groin adenopathy Musculoskeletal: normal muscle bulk Laboratory Tests 01/08/17 11:30: White Blood Count 9.7, Red Blood Count 4.45L, Hemoglobin 12.8L, Hematocrit 39.2L , Mean Corpuscular Volume 88, Mean Corpuscular Hemoglobin 28.8, Mean Corpuscular Hemoglobin Concent 32.7, Red Cell Distribution Width 14.5, Platelet Count 170, Mean Platelet Volume 8.4, Neutrophils (%) (Auto) , Lymphocytes (%) ( Auto) , Monocytes (%) (Auto) , Eosinophils (%) (Auto) , Basophils (%) (Auto) , Differential Total Cells Counted 100, Neutrophils % (Manual) 76H, Lymphocytes % (Manual) 9L, Monocytes % (Manual) 4, Eosinophils % (Manual) 0, Basophils % ( Manual) 0, Band Neutrophils 11H, Toxic Granulation Occasional, Platelet Estimate Adequate, Platelet Morphology Normal, Anisocytosis 1+, Sodium Level 130L, Potassium Level 5.9H, Chloride Level 85L, Carbon Dioxide Level 17L, Anion Gap 28H, Blood Urea Nitrogen 98H, Creatinine 1.4H, Estimat Glomerular Filtration Rate > 60, Glucose Level 266H, Calcium Level 9.3, Total Bilirubin 0.6 , Aspartate Amino Transf (AST/SGOT) 72H, Alanine Aminotransferase (ALT/SGPT) 47H , Alkaline Phosphatase 78, Total Protein 8.0, Albumin 2.9L, Globulin 5.1, Albumin/Globulin Ratio 0.5L, Lipase 45 01/08/17 12:20: Urine Color Pale yellow, Urine Appearance Clear, Urine pH 6, Urine Specific [place] 1.015, Urine Protein 1+H, Urine Glucose (UA) Negative, Urine Ketones Negative, Urine Occult Blood 2+H, Urine Nitrite Negative, Urine Bilirubin Negative, Urine Urobilinogen Normal, Urine Leukocyte Esterase Negative, Urine RBC 2-4H, Urine WBC 0-2, Urine Squamous Epithelial Cells Occasional, Urine Bacteria Occasional, Serum Alcohol 13 01/08/17 14:40: Lactic Acid Level 4.70H 01/08/17 15:38: Lactic Acid Level 4.20H 01/08/17 20:40: Urine Opiates Screen Negative, Urine Barbiturates Screen Negative, Phencyclidine (PCP) Screen Negative, Urine Amphetamines Screen Negative, Urine Benzodiazepines Screen Negative, Urine Cocaine Screen Negative, Urine Marijuana (THC) Screen PositiveH, Urine Legionella Antigen [Pending] 01/09/17 07:15: White Blood Count 6.9, Red Blood Count 3.66L, Hemoglobin 10.5L, Hematocrit 32.2L , Mean Corpuscular Volume 88, Mean Corpuscular Hemoglobin 28.7, Mean Corpuscular Hemoglobin Concent 32.6, Red Cell Distribution Width 14.1, Platelet Count 133L, Mean Platelet Volume 7.8, Neutrophils (%) (Auto) 84.5H, Lymphocytes (%) (Auto) 9.4L, Monocytes (%) (Auto) 5.8, Eosinophils (%) (Auto) 0.0, Basophils (%) (Auto) 0.2, Prothrombin Time 11.1, Prothromb Time International Ratio 1.1, Activated Partial Thromboplast Time 34H, Sodium Level 141#, Potassium Level 4.3, Chloride Level 104, Carbon Dioxide Level 16L, Anion Gap 21H , Blood Urea Nitrogen 53#H, Creatinine 1.1, Estimat Glomerular Filtration Rate > 60, Glucose Level 167#H, Hemoglobin A1c 5.6, Uric Acid 7.5, Calcium Level 8.3L , Phosphorus Level 2.4L, Magnesium Level 2.7H, Total Bilirubin 0.6, Gamma Glutamyl Transpeptidase 18, Aspartate Amino Transf (AST/SGOT) 51H, Alanine Aminotransferase (ALT/SGPT) 36, Alkaline Phosphatase 58, Total Creatine Kinase 277H, C-Reactive Protein, Quantitative 20.3H, Pro-B-Type Natriuretic Peptide 2726H, Total Protein 6.1L, Albumin 2.3L, Globulin 3.8, Albumin/Globulin Ratio 0.6L, Triglycerides Level 192H, Cholesterol Level 98, LDL Cholesterol 53L, HDL Cholesterol 7, Cholesterol/HDL Ratio 14.0H, Vitamin B12 Level 645, Folate [ Pending], Thyroid Stimulating Hormone (TSH) 1.630, Phenytoin (Dilantin) Level < 0.8L Current Medications Medications (Trade) Dose Ordered Sig/Abbi Route PRN Reason Start Time Stop Time Status Last Admin Dose Admin Acetaminophen (Tylenol) 650 mg Q4H PRN ORAL fever 01/08/17 14:45 02/07/17 14:44 Albuterol/ Ipratropium 3 ml 3 ml Q4H PRN HHN Shortness of Breath 01/08/17 14:45 01/13/17 14:44 Cefepime HCl/ Dextrose (Maxipime/D5W) 55 ml @ 110 mls/hr Q24H IV 01/08/17 21:00 01/15/17 20:59 01/08/17 21:08 Heparin Sodium (Porcine) (Heparin 5000 units/ml) 5,000 units EVERY 12 HOURS SUBQ 01/08/17 21:00 02/07/17 20:59 01/08/17 21:10 Nitroglycerin (Ntg) 0.4 mg Q5M PRN SL Prn Chest Pain 01/08/17 14:45 02/07/17 14:44 Ondansetron HCl (Zofran) 4 mg Q6H PRN IVP Nausea & Vomiting 01/08/17 14:45 02/07/17 14:44 Polyethylene Glycol (Miralax) 17 gm DAILYPRN PRN ORAL Constipation 01/08/17 14:45 02/07/17 14:44 Promethazine HCl/ Codeine 5 ml 5 ml Q4H PRN ORAL For Cough 01/08/17 14:45 02/07/17 14:44 Sodium Chloride (Sodium Chloride 1000ml bag) 1,000 ml @ 75 mls/hr [id number] IV 01/08/17 20:00 02/07/17 19:59 01/08/17 20:45 Temazepam (Restoril) 15 mg HSPRN PRN ORAL Insomnia 01/08/17 14:45 01/15/17 14:44 IVY CONNELLY January 09, 2017 08:42
--- NOTE | 2017-01-09 09:27 | General Progress Note ---
Assessment/Plan Status: stable Assessment/Plan Acute renal failure- improving Dehydration- improving Hyperkalemia , due to above improved HypoNatremia due to above, improved Sz disorder Alcohol and drug abuse by history Anemia Plan; [place] Hydrate Avoid Nephrotoxics- Monitor lytes and renal parameters Sz percautions Thiamin- Anemia wheat PT OT- Low dose beta danielito Subjective ROS Limited/Unobtainable: No Constitutional: Reports: malaise, weakness Allergies: Coded Allergies: No Known Allergies (Verified , 01/25/10) Objective Last 24 Hour Vital Signs Date Time Temp Pulse Resp B/P Pulse Ox O2 Delivery O2 Flow Rate FiO2 01/09/17 07:59 99.7 126 20 147/88 97 Room Air 01/09/17 04:00 122 01/09/17 03:54 98.5 127 22 156/76 94 Room Air 01/09/17 00:06 98.8 133 20 140/79 94 Room Air 01/09/17 00:00 132 01/08/17 20:16 97.3 122 19 132/84 97 Room Air 01/08/17 20:00 129 01/08/17 16:23 96.9 116 20 166/102 94 Room Air 01/08/17 16:20 117 01/08/17 15:53 117 26 163/91 94 Room Air 01/08/17 14:54 97.1 116 20 158/100 94 Room Air 01/08/17 11:31 96.8 80 20 141/92 99 Room Air 01/08/17 11:24 96.8 117 20 141/92 99 Room Air Intake and Output 01/08/17 01/09/17 19:00 07:00 Intake Total 1460 ml 690 ml Output Total 1300 ml Balance 1460 ml -610 ml Intake Oral 360 ml IV Total 1100 ml 690 ml Output Urine Total 1300 ml # Bowel Movements 1 Laboratory Tests 01/08/17 11:30: White Blood Count 9.7, Red Blood Count 4.45L, Hemoglobin 12.8L, Hematocrit 39.2L , Mean Corpuscular Volume 88, Mean Corpuscular Hemoglobin 28.8, Mean Corpuscular Hemoglobin Concent 32.7, Red Cell Distribution Width 14.5, Platelet Count 170, Mean Platelet Volume 8.4, Neutrophils (%) (Auto) , Lymphocytes (%) ( Auto) , Monocytes (%) (Auto) , Eosinophils (%) (Auto) , Basophils (%) (Auto) , Differential Total Cells Counted 100, Neutrophils % (Manual) 76H, Lymphocytes % (Manual) 9L, Monocytes % (Manual) 4, Eosinophils % (Manual) 0, Basophils % ( Manual) 0, Band Neutrophils 11H, Toxic Granulation Occasional, Platelet Estimate Adequate, Platelet Morphology Normal, Anisocytosis 1+, Sodium Level 130L, Potassium Level 5.9H, Chloride Level 85L, Carbon Dioxide Level 17L, Anion Gap 28H, Blood Urea Nitrogen 98H, Creatinine 1.4H, Estimat Glomerular Filtration Rate > 60, Glucose Level 266H, Calcium Level 9.3, Total Bilirubin 0.6 , Aspartate Amino Transf (AST/SGOT) 72H, Alanine Aminotransferase (ALT/SGPT) 47H , Alkaline Phosphatase 78, Total Protein 8.0, Albumin 2.9L, Globulin 5.1, Albumin/Globulin Ratio 0.5L, Lipase 45 01/08/17 12:20: Urine Color Pale yellow, Urine Appearance Clear, Urine pH 6, Urine Specific [place] 1.015, Urine Protein 1+H, Urine Glucose (UA) Negative, Urine Ketones Negative, Urine Occult Blood 2+H, Urine Nitrite Negative, Urine Bilirubin Negative, Urine Urobilinogen Normal, Urine Leukocyte Esterase Negative, Urine RBC 2-4H, Urine WBC 0-2, Urine Squamous Epithelial Cells Occasional, Urine Bacteria Occasional, Serum Alcohol 13 01/08/17 14:40: Lactic Acid Level 4.70H 01/08/17 15:38: Lactic Acid Level 4.20H 01/08/17 20:40: Urine Opiates Screen Negative, Urine Barbiturates Screen Negative, Phencyclidine (PCP) Screen Negative, Urine Amphetamines Screen Negative, Urine Benzodiazepines Screen Negative, Urine Cocaine Screen Negative, Urine Marijuana (THC) Screen PositiveH, Urine Legionella Antigen [Pending] 01/09/17 07:15: White Blood Count 6.9, Red Blood Count 3.66L, Hemoglobin 10.5L, Hematocrit 32.2L , Mean Corpuscular Volume 88, Mean Corpuscular Hemoglobin 28.7, Mean Corpuscular Hemoglobin Concent 32.6, Red Cell Distribution Width 14.1, Platelet Count 133L, Mean Platelet Volume 7.8, Neutrophils (%) (Auto) 84.5H, Lymphocytes (%) (Auto) 9.4L, Monocytes (%) (Auto) 5.8, Eosinophils (%) (Auto) 0.0, Basophils (%) (Auto) 0.2, Prothrombin Time 11.1, Prothromb Time International Ratio 1.1, Activated Partial Thromboplast Time 34H, Sodium Level 141#, Potassium Level 4.3, Chloride Level 104, Carbon Dioxide Level 16L, Anion Gap 21H , Blood Urea Nitrogen 53#H, Creatinine 1.1, Estimat Glomerular Filtration Rate > 60, Glucose Level 167#H, Hemoglobin A1c 5.6, Uric Acid 7.5, Calcium Level 8.3L , Phosphorus Level 2.4L, Magnesium Level 2.7H, Total Bilirubin 0.6, Gamma Glutamyl Transpeptidase 18, Aspartate Amino Transf (AST/SGOT) 51H, Alanine Aminotransferase (ALT/SGPT) 36, Alkaline Phosphatase 58, Total Creatine Kinase 277H, C-Reactive Protein, Quantitative 20.3H, Pro-B-Type Natriuretic Peptide 2726H, Total Protein 6.1L, Albumin 2.3L, Globulin 3.8, Albumin/Globulin Ratio 0.6L, Triglycerides Level 192H, Cholesterol Level 98, LDL Cholesterol 53L, HDL Cholesterol 7, Cholesterol/HDL Ratio 14.0H, Vitamin B12 Level 645, Folate [ Pending], Thyroid Stimulating Hormone (TSH) 1.630, Phenytoin (Dilantin) Level < 0.8L Height (Feet): 5 Height (Inches): 7.00 Weight (Pounds): 114 General Appearance: no apparent distress Cardiovascular: tachycardia Respiratory/Chest: decreased breath sounds Abdomen: soft, distended Objective other PE not changed SHANNON GOODSON January 09, 2017 09:27
[2017-01-09] MEDS ORDERED: Phospha 250 Neutral tab ORAL ONE (09:30)
[2017-01-09] MEDS ORDERED: Vancomycin 1gm in D5W 275ml IVPB ONE (10:00)
[2017-01-09] MEDS ORDERED: Propranolol 10mg tab ORAL ONE (10:00)
[2017-01-09] MEDS: Thiamine 100mg tab ORAL SCH (11:04)
[2017-01-09 12:01] VITALS: BP 132/75
--- NOTE | 2017-01-09 12:48 | Consultation ---
Consult Note Consult Note ID Dic # [id number] ALEJANDRA TEE M.D. January 09, 2017 12:48
[2017-01-09] MEDS: Propranolol 10mg tab ORAL SCH ×2 (13:45→21:57)
--- NOTE | 2017-01-09 14:27 | Cardiology Report ---
APPROVED REPORT EKG Measurement Heart [id number] Sinus tachycardia with short TX Otherwise normal ECG
[2017-01-09] MEDS ORDERED: Lidocaine 1% Plain 30 ml INJ ONE (14:50)
--- NOTE | 2017-01-09 15:49 | Diagnostic Imaging Report ---
Indications: Multiloculated left hydropneumothorax Technique: Procedure, indications, risks and alternatives were explained to the patient who understands and gives consent to proceed. The left pleural space was surveyed sonographically. The skin over the posterior aspect of the lower left hemithorax was sterilely prepped and draped in usual fashion. Skin and subcutaneous soft tissues were infiltrated with 1% lidocaine and sodium bicarbonate. A small dermatotomy was made, through which an 8 [place] thoracentesis catheter was advanced under direct sonographic guidance into the loculated fluid collection in the basal aspect of the left pleural space. Pleural fluid was maximally drained via vacuum apparatus.. Followup imaging was performed. Catheter was removed. Dermatotomy site was manually compressed to achieve stasis, then cleansed and bandaged. The skin over the lateral aspect of the upper left hemithorax was sterilely prepped and draped in usual fashion. Skin and subcutaneous soft tissues were infiltrated with 1% lidocaine and sodium bicarbonate. A small dermatotomy was made, through which an 8 [place] thoracentesis catheter was advanced under direct sonographic guidance into the loculated fluid collection in the upper aspect of the left pleural space. Pleural fluid was maximally drained via vacuum apparatus.. Followup imaging was performed. Catheter was removed. Dermatotomy site was manually compressed to achieve stasis, then cleansed and bandaged. Patient tolerated the procedure well without immediate complications. Fluid was sent to the floor with the patient for analysis, as needed Findings: Initial imaging demonstrates a large amount of loculated fluid within the basal aspect of the left pleural space and separately in the upper lateral aspect of the left pleural space. Post procedure imaging demonstrates resolution of fluid in both areas. Thoracentesis yields 660 cc of purulent, malodorous fluid from the basal collection, 500 cc of similar fluid from the upper collection.. IMPRESSION: Ultrasound-guided left thoracentesis yielding 1160 cc of of pus from 2 different loculated collections . Followup chest radiograph pending. Dr. Bailey notified of findings by telephone at time of this dictation.
[2017-01-09] MEDS ORDERED: Tubing IV Secondary IV ONE (15:55)
[2017-01-09 16:07] VITALS: BP 124/78
--- NOTE | 2017-01-09 16:12 | Diagnostic Imaging Report ---
Indications: Status post left thoracentesis Technique: Portable upright AP chest Findings: Comparison: 01/08/17 Large pleural-based masslike opacities in the lateral aspect of the left upper lower hemithoraces has significantly decreased in size. A moderate amount of gas is now present in the upper hemithoracic loculation. The underlying left upper lung remains underexpanded and increased attenuation with discrete linear densities. Blunting of the left costophrenic angle persists. Hazy opacity now noted in left lung base. Right lung and pleura remain clear. Heart size and pulmonary vasculature remain within normal limits. No shift of cardiac mediastinal structures. IMPRESSION: Marked decrease in size of loculated left pleural effusions Development of loculated left pneumothorax within previous area of loculated pleural fluid. No tension component. Underlying lung may be trapped. Short interval followup recommended. Persistence left basal pleural effusion Nonspecific hazy opacity left lung base--atelectasis versus pneumonia
[2017-01-09 18:48] LABS: APPEARANCE, BODY FLUID CLOUDY
[2017-01-09 18:50] LABS: BD FL SOURCE PLEURAL; BD FL VOLUME 24 mL
[2017-01-09 20:00] VITALS: BP 108/65
[2017-01-09] MEDS: Cefepime HCl 1 GM in D5W 55 ML IV SCH (21:57)
[2017-01-10] VITALS: BP 113/68
[2017-01-10 04:00] VITALS: BP 110/65
[2017-01-10] MEDS: Propranolol 10mg tab ORAL SCH ×3 (06:42→22:00)
[2017-01-10 07:56] VITALS: BP 128/81
[2017-01-10 07:58] LABS: MEAN CORPUSCULAR HEMOGLOBIN 28.9 PG (27.0-31.0); MEAN CORPUSCULAR HGB CONC 32.6 G/DL (32.0-36.0); MEAN CORPUSCULAR VOLUME 89 FL (80-99); MEAN PLATELET VOLUME 7.3 FL (6.5-10.1); PLATELET COUNT 98 K/UL (150-450); RED BLOOD COUNT 3.32 M/UL (4.70-6.10); RED CELL DISTRIBUTION WIDTH 14.4 % (11.6-14.8); WHITE BLOOD COUNT 4.1 K/UL (4.8-10.8)
[2017-01-10 08:14] LABS: INR 1.1 (0.9-1.1); PROTHROMBIN TIME 11.4 SEC (9.30-11.50)
[2017-01-10 08:18] LABS: ALANINE AMINOTRANSFERASE 32 U/L (3-41); ALBUMIN/GLOBULIN RATIO 0.4 (1.0-2.7); ANION GAP 15 (5-15); ASPARTATE AMINO TRANSFERASE 56 U/L (5-40); CALCIUM 7.7 mg/dL (8.6-10.2); CARBON DIOXIDE 20 mEQ/L (20-30); CHLORIDE 104 mEQ/L (98-107); CREATININE 0.8 mg/dL (0.7-1.2); GLOMERULAR FILTRATION RATE > 60 mL/min (>60); HEMOLYSIS 2; MAGNESIUM 2.2 mg/dL (1.7-2.5); PHOSPHORUS 2.3 mg/dL (2.5-4.8); POTASSIUM 3.3 mEQ/L (3.4-4.9); SODIUM 139 mEQ/L (135-145); TOTAL PROTEIN 5.4 g/dL (6.6-8.7)
[2017-01-10 08:20] LABS: FERRITIN 396 ng/mL (10-230)
[2017-01-10 08:25] LABS: HEMOLYSIS 4; IRON 40 ug/dL (59-158); TOTAL IRON BINDING CAPACITY 164 ug/dL (250-400)
[2017-01-10] MEDS: Heparin 5000 units/ml inj SUBQ SCH ×2 (09:00→21:00)
[2017-01-10] MEDS: Thiamine 100mg tab ORAL SCH (09:10)
[2017-01-10] MEDS ORDERED: Vancomycin 750mg/D5W 275ml IVPB SCH ×2 (10:00)
[2017-01-10] MEDS ORDERED: Vancomycin 1gm in D5W 275ml IVPB SCH (10:00)
--- NOTE | 2017-01-10 10:31 | Consultation ---
DATE OF CONSULTATION: INFECTIOUS DISEASE CONSULTATION CONSULTING PHYSICIAN: Guy Castro M.D. REFERRING PHYSICIAN: Anthony Bailey M.D. REASON FOR CONSULTATION: Evaluation of the patient for possible empyema, pneumonia and antibiotic management. HISTORY OF PRESENT ILLNESS: The patient is a 61-year-old male with multiple medical problems, who was admitted to this medical center with generalized weakness and cough. The patient's chest x-ray showed left pleural effusion. A CT scan of the chest showed enlarged left pleural effusion and thoracocentesis has been scheduled. The patient has been started on IV antibiotics. An Infectious Diseases consultation has been requested for further evaluation of the patient's antibiotic management. PAST MEDICAL HISTORY: 1. History of seizure disorder. 2. History of alcohol abuse, marijuana abuse. 3. History of anemia. MEDICATIONS: IV vancomycin and cefepime. SOCIAL HISTORY: As mentioned above. REVIEW OF SYSTEMS: Unobtainable, as the patient is a very poor historian. PHYSICAL EXAMINATION: VITAL SIGNS: Temperature 98.4 degrees, blood pressure 132/74 and pulse 86. HEENT: Mild pale conjunctivae. No icterus. NECK: No lymphadenopathy. CHEST: Coarse breathing sounds. Diffuse left-sided breath sounds. ABDOMEN: Soft and nontender. EXTREMITIES: No cyanosis. NEUROLOGIC: Awake and lethargic. LABORATORY AND DIAGNOSTIC DATA: White count 6.9, hemoglobin 10, and platelets 133,000. Urinalysis unremarkable. BUN 53 and creatinine 1.1. AST 51, ALT 36, and alkaline phosphatase 68. HIV test negative as of August 2016. pending. ASSESSMENT: The patient is a 61-year-old male with multiple medical problems, was found to have left-sided pleural effusion, underlying cause not determined, possibility of malignancy and also infectious process. PLAN: 1. We will start the patient on vancomycin and cefepime day #1. 2. Monitor CBC. 3. Monitor BMP. 4. Monitor cultures (blood and sputum). 5. Thoracocentesis, recent pleural effusion for glucose, protein, cultures (AFB, fungal and bacterial). 6. . 7. LDH. 8. Monitor chest x-ray. 9. Based on patient's clinical course and labs, we will do further recommendation. Thank you, Dr. Bailey, for allowing me to participate in the care of this patient. I will follow the patient with you during this hospitalization. Guy Castro M.D. DR: BEST JOB#: [id number] CC:
--- NOTE | 2017-01-10 10:58 | General Progress Note ---
Assessment/Plan Status: stable Assessment/Plan Acute renal failure- improving Dehydration- improving Hyperkalemia , due to above improved HypoNatremia due to above, improved Sz disorder Alcohol and drug abuse by history Anemia Plan; MALVIN Interiano and Abel suppl. Hydrate Avoid Nephrotoxics- Monitor lytes and renal parameters Sz percautions Thiamin- Anemia wheat PT OT- Low dose beta danielito Subjective ROS Limited/Unobtainable: No Constitutional: Reports: malaise, weakness Allergies: Coded Allergies: No Known Allergies (Verified , 01/25/10) Objective Last 24 Hour Vital Signs Date Time Temp Pulse Resp B/P Pulse Ox O2 Delivery O2 Flow Rate FiO2 01/10/17 07:56 97.7 88 22 128/81 100 Nasal Cannula 2.0 01/10/17 06:42 87 125/95 01/10/17 04:00 88 01/10/17 04:00 97.3 81 19 110/65 97 Nasal Cannula 01/10/17 00:00 97.0 86 19 113/68 97 01/10/17 00:00 91 01/09/17 21:57 103 109/67 01/09/17 20:00 98.2 103 20 108/65 96 Nasal Cannula 2.0 01/09/17 20:00 104 01/09/17 16:07 97.0 110 20 124/78 96 Nasal Cannula 2.0 01/09/17 16:00 113 01/09/17 13:45 109 132/75 01/09/17 12:01 98.4 120 20 132/75 95 Room Air 01/09/17 12:00 107 Intake and Output 01/09/17 01/10/17 19:00 07:00 Intake Total 1597.416 ml 848 ml Output Total 1300 ml 950 ml Balance 297.416 ml -102 ml Intake Oral 480 ml IV Total 1117.416 ml 848 ml Output Urine Total 1300 ml 950 ml # Voids 2 # Bowel Movements 1 Laboratory Tests 01/09/17 15:00: Body Fluid Source Pleural, Body Fluid Volume 24, Body Fluid Appearance Cloudy, Body Fluid RBC , Body Fluid Total Nucleated Cells , Body Fluid Polynuclear WBCs (%) , Body Fluid Mononuclear WBCs (%) , Body Fluid Mesothelial Cells (%) , Body Fluid Glucose [Pending], Body Fluid Total Protein [Pending], Body Fluid Albumin [Pending], Body Fluid Lactate Dehydrogenase [Pending] 01/10/17 07:30: White Blood Count 4.1L, Red Blood Count 3.32L, Hemoglobin 9.6L, Hematocrit 29.5L , Mean Corpuscular Volume 89, Mean Corpuscular Hemoglobin 28.9, Mean Corpuscular Hemoglobin Concent 32.6, Red Cell Distribution Width 14.4, Platelet Count 98L, Mean Platelet Volume 7.3, Neutrophils (%) (Auto) , Lymphocytes (%) ( Auto) , Monocytes (%) (Auto) , Eosinophils (%) (Auto) , Basophils (%) (Auto) , Neutrophils % (Manual) [Pending], Lymphocytes % (Manual) [Pending], Platelet Estimate [Pending], Platelet Morphology [Pending], Prothrombin Time 11.4, Prothromb Time International Ratio 1.1, Activated Partial Thromboplast Time 34H , Sodium Level 139, Potassium Level 3.3L, Chloride Level 104, Carbon Dioxide Level 20, Anion Gap 15, Blood Urea Nitrogen 23#, Creatinine 0.8, Estimat Glomerular Filtration Rate > 60, Glucose Level 122H, Calcium Level 7.7L, Phosphorus Level 2.3L, Magnesium Level 2.2, Iron Level 40L, Total Iron Binding Capacity 164L, Percent Iron Saturation 24, Unsaturated Iron Binding 124, Ferritin 396H, Total Bilirubin 0.7, Aspartate Amino Transf (AST/SGOT) 56H, Alanine Aminotransferase (ALT/SGPT) 32, Alkaline Phosphatase 54, Total Protein 5.4L, Albumin 1.6L, Globulin 3.8, Albumin/Globulin Ratio 0.4L Height (Feet): 5 Height (Inches): 7.00 Weight (Pounds): 114 General Appearance: no apparent distress Cardiovascular: regular rhythm Respiratory/Chest: decreased breath sounds Abdomen: soft Objective other PE not changed SHANNON GOODSON January 10, 2017 10:58
[2017-01-10 11:29] LABS: BAND NEUTROPHILS % (MANUAL) 1 % (0-8); BASOPHILS % (MANUAL) 0 % (0-2); EOSINOPHILS % (MANUAL) 1 % (0-3); LYMPHOCYTES % (MANUAL) 26 % (20-45); NEUTROPHILS % (MANUAL) 64 % (45-75); NUCLEATED RED BLOOD CELLS 3 /100 WBC; PLATELET ESTIMATE DECREASED; PLATELET MORPHOLOGY NORMAL; TOTAL CELLS COUNTED 100
[2017-01-10 11:35] LABS: HYPOCHROMASIA 1+
[2017-01-10 11:36] LABS: TOXIC GRANULATION OCCASIONAL
--- NOTE | 2017-01-10 12:49 | Pulmonology Progress Note ---
Assessment/Plan Problems: (1) Empyema (2) ATN (acute tubular necrosis) (3) Seizure disorder (4) Homelessness (5) noncompliance (6) h/o chronic seizure disorder (7) Altered level of consciousness Assessment/Plan renal function improving d/w thoracic continue abx f/u renal function refusing thoracoscopy chest tube by radiology check cultures Subjective ROS Limited/Unobtainable: No Allergies: Coded Allergies: No Known Allergies (Verified , 01/25/10) Objective Last 24 Hour Vital Signs Date Time Temp Pulse Resp B/P Pulse Ox O2 Delivery O2 Flow Rate FiO2 01/10/17 07:56 97.7 88 22 128/81 100 Nasal Cannula 2.0 01/10/17 06:42 87 125/95 01/10/17 04:00 88 01/10/17 04:00 97.3 81 19 110/65 97 Nasal Cannula 01/10/17 00:00 97.0 86 19 113/68 97 01/10/17 00:00 91 01/09/17 21:57 103 109/67 01/09/17 20:00 98.2 103 20 108/65 96 Nasal Cannula 2.0 01/09/17 20:00 104 01/09/17 16:07 97.0 110 20 124/78 96 Nasal Cannula 2.0 01/09/17 16:00 113 01/09/17 13:45 109 132/75 Intake and Output 01/09/17 01/10/17 19:00 07:00 Intake Total 1597.416 ml 848 ml Output Total 1300 ml 950 ml Balance 297.416 ml -102 ml Intake Oral 480 ml IV Total 1117.416 ml 848 ml Output Urine Total 1300 ml 950 ml # Voids 2 # Bowel Movements 1 General Appearance: WD/WN HEENT: normocephalic, anicteric Respiratory/Chest: chest wall non-tender, lungs clear Cardiovascular: normal peripheral pulses, normal rate Abdomen: normal bowel sounds, no organomegaly Genitourinary: normal external genitalia Extremities: no clubbing Skin: no rash Microbiology Date/Time Source Procedure Growth Status 01/08/17 14:50 Blood Blood Culture - Preliminary NO GROWTH AFTER 24 HOURS Resulted 01/08/17 14:40 Blood Blood Culture - Preliminary NO GROWTH AFTER 24 HOURS Resulted 01/09/17 15:00 Pleural Fluid Gram Stain - Final Resulted 01/09/17 15:00 Pleural Fluid Body Fluid Culture Pending Resulted 01/08/17 14:40 Nasal Nares MRSA Culture - Final NO METHICILLIN RESISTANT STAPH AUREUS... Complete 01/08/17 14:40 Rectum VRE Culture - Final NO VANCOMYCIN RESISTANT ENTEROCOCCUS ... Complete Laboratory Tests 01/09/17 15:00: Body Fluid Source Pleural, Body Fluid Volume 24, Body Fluid Appearance Cloudy, Body Fluid RBC , Body Fluid Total Nucleated Cells , Body Fluid Polynuclear WBCs (%) , Body Fluid Mononuclear WBCs (%) , Body Fluid Mesothelial Cells (%) , Body Fluid Glucose [Pending], Body Fluid Total Protein [Pending], Body Fluid Albumin [Pending], Body Fluid Lactate Dehydrogenase [Pending] 01/10/17 07:30: White Blood Count 4.1L, Red Blood Count 3.32L, Hemoglobin 9.6L, Hematocrit 29.5L , Mean Corpuscular Volume 89, Mean Corpuscular Hemoglobin 28.9, Mean Corpuscular Hemoglobin Concent 32.6, Red Cell Distribution Width 14.4, Platelet Count 98L, Mean Platelet Volume 7.3, Neutrophils (%) (Auto) , Lymphocytes (%) ( Auto) , Monocytes (%) (Auto) , Eosinophils (%) (Auto) , Basophils (%) (Auto) , Differential Total Cells Counted 100, Neutrophils % (Manual) 64, Lymphocytes % ( Manual) 26, Monocytes % (Manual) 8, Eosinophils % (Manual) 1, Basophils % ( Manual) 0, Band Neutrophils 1, Nucleated Red Blood Cells 3, Toxic Granulation Occasional, Platelet Estimate DecreasedL, Platelet Morphology Normal, Hypochromasia 1+, Prothrombin Time 11.4, Prothromb Time International Ratio 1.1 , Activated Partial Thromboplast Time 34H, Sodium Level 139, Potassium Level 3.3L, Chloride Level 104, Carbon Dioxide Level 20, Anion Gap 15, Blood Urea Nitrogen 23#, Creatinine 0.8, Estimat Glomerular Filtration Rate > 60, Glucose Level 122H, Calcium Level 7.7L, Phosphorus Level 2.3L, Magnesium Level 2.2, Iron Level 40L, Total Iron Binding Capacity 164L, Percent Iron Saturation 24, Unsaturated Iron Binding 124, Ferritin 396H, Total Bilirubin 0.7, Aspartate Amino Transf (AST/SGOT) 56H, Alanine Aminotransferase (ALT/SGPT) 32, Alkaline Phosphatase 54, Total Protein 5.4L, Albumin 1.6L, Globulin 3.8, Albumin/ Globulin Ratio 0.4L Current Medications Medications (Trade) Dose Ordered Sig/Abbi Route PRN Reason Start Time Stop Time Status Last Admin Dose Admin Acetaminophen (Tylenol) 650 mg Q4H PRN ORAL fever 01/08/17 14:45 02/07/17 14:44 Albuterol/ Ipratropium 3 ml 3 ml Q4H PRN HHN Shortness of Breath 01/08/17 14:45 01/13/17 14:44 Cefepime HCl/ Dextrose (Maxipime/D5W) 55 ml @ 110 mls/hr Q24H IV 01/08/17 21:00 01/15/17 20:59 01/09/17 21:57 Heparin Sodium (Porcine) (Heparin 5000 units/ml) 5,000 units EVERY 12 HOURS SUBQ 01/08/17 21:00 02/07/17 20:59 01/08/17 21:10 Nitroglycerin (Ntg) 0.4 mg Q5M PRN SL Prn Chest Pain 01/08/17 14:45 02/07/17 14:44 Ondansetron HCl (Zofran) 4 mg Q6H PRN IVP Nausea & Vomiting 01/08/17 14:45 02/07/17 14:44 Pantoprazole (Protonix) 40 mg DAILY ORAL 01/09/17 09:30 02/08/17 09:29 01/10/17 09:10 Phosphorus (Phospha 250 Neutral) 250 mg THREE TIMES A DAY ORAL 01/10/17 13:00 02/09/17 12:59 Polyethylene Glycol (Miralax) 17 gm DAILYPRN PRN ORAL Constipation 01/08/17 14:45 02/07/17 14:44 Potassium Chloride (K-Dur) 40 meq DAILY ORAL 01/10/17 13:00 02/09/17 12:59 Promethazine HCl/ Codeine 5 ml 5 ml Q4H PRN ORAL For Cough 01/08/17 14:45 02/07/17 14:44 Propranolol HCl (Inderal) 10 mg Q8HR ORAL 01/09/17 14:00 02/08/17 13:59 01/10/17 06:42 Sodium Chloride (Sodium Chloride 1000ml bag) 1,000 ml @ 75 mls/hr [id number] IV 01/08/17 20:00 02/07/17 19:59 01/09/17 23:55 Temazepam (Restoril) 15 mg HSPRN PRN ORAL Insomnia 01/08/17 14:45 01/15/17 14:44 Thiamine HCl (Vitamin B1) 100 mg DAILY ORAL 01/09/17 10:00 02/08/17 09:59 01/10/17 09:10 Vancomycin HCl 1 ea 1 ea DAILY PRN MISC Per rx protocol 01/09/17 08:45 02/08/17 08:44 Vancomycin HCl/ Dextrose (Vancomycin/D5W) 275 ml @ 183.708 mls/hr Q24H IVPB 01/10/17 10:00 01/15/17 09:59 01/10/17 09:10 IVY CONNELLY January 10, 2017 12:49
[2017-01-10 13:07] VITALS: BP 124/81
[2017-01-10] MEDS: Phospha 250 Neutral tab ORAL SCH ×2 (13:19→17:33)
[2017-01-10 15:42] VITALS: BP 121/79
--- NOTE | 2017-01-10 16:52 | Diagnostic Imaging Report ---
Indication: left pleural empyema. Asked to place a drainage catheter Technique: Ultrasound images of the left chest performed in real-time. Procedure and findings: The initial CT scan performed showed multiple pockets of air and fluid within the left pleural space. The patient has had 2 thoracenteses procedures performed yesterday for multiloculated pleural collections. The largest collection seen by CT was noted in the medial posterior left lung base. This was not accessible by CT as the collection was posterior and medial with the patient supine and anterior and lateral with the patient prone. Ultrasound was therefore performed with the patient in multiple different positions. When the patient was right lateral decubitus position, the collection was best visualized and accessible percutaneously. After choosing the trajectory and identifying the largest pocket, the area was prepped and sterilely draped. 1% lidocaine was administered. Dermatotomy was made. Access into the empyema was made using a micropuncture needle. Small amount of pus was aspirated. A 0.018 wire was then advanced after the stylette was removed. Exchange was made for a 0.035 wire. 8 [place] pigtail catheter was then advanced over the wire and secured. Approximately 150 cc of part was then aspirated. There are no consultations. Patient tolerated the procedure well. Impression: Successful aspiration and drainage catheter placement into a left posterior empyema. Aspiration of 150 cc of dominique pus. 8 [place] drainage catheter placed. Note: By CT there are multiple noncommunicating, loculated pleural collections. The largest of these was aspirated and drained.
[2017-01-10] MEDS ORDERED: Nitroglycerin Subl 0.4mg tab (Bottle Of 25) SL PRN (18:15)
--- NOTE | 2017-01-10 18:37 | Infectious Diseases Prog Note ---
Assessment/Plan Assessment/Plan A: The patient is a 61-year-old male with Left pleural effusion / Empyema Gram stain : GPC and GNR Ultrasound-guided left thoracentesis yielding 1160 cc of of pus from 2 different loculated collections pt refusing thoracoscopy Probable pneumonia Seizure disorder. History of alcohol abuse, marijuana abuse Anemia HIV test : Neg PLAN: cont on vancomycin and cefepime day # 2 Monitor CBC Monitor BMP Monitor cultures (blood, Pleura and sputum) Monitor chest x-ray CTube by IR Subjective Allergies: Coded Allergies: No Known Allergies (Verified , 01/25/10) Subjective low grade fever x 1 Objective Vital Signs Last 24 Hour Vital Signs Date Time Temp Pulse Resp B/P Pulse Ox O2 Delivery O2 Flow Rate FiO2 01/10/17 17:33 100.0 01/10/17 16:00 94 01/10/17 15:42 99.0 93 20 121/79 98 Room Air 01/10/17 13:22 95 124/81 01/10/17 13:07 97.9 95 22 124/81 98 Nasal Cannula 2.0 01/10/17 12:00 87 01/10/17 08:00 87 01/10/17 07:56 97.7 88 22 128/81 100 Nasal Cannula 2.0 01/10/17 06:42 87 125/95 01/10/17 04:00 88 01/10/17 04:00 97.3 81 19 110/65 97 Nasal Cannula 01/10/17 00:00 97.0 86 19 113/68 97 01/10/17 00:00 91 01/09/17 21:57 103 109/67 01/09/17 20:00 98.2 103 20 108/65 96 Nasal Cannula 2.0 01/09/17 20:00 104 Height (Feet): 5 Height (Inches): 7.00 Weight (Pounds): 114 HEENT: atraumatic Respiratory/Chest: no respiratory distress Cardiovascular: regularly irregular Abdomen: non distended Microbiology Date/Time Source Procedure Growth Status 01/08/17 14:50 Blood Blood Culture - Preliminary NO GROWTH AFTER 24 HOURS Resulted 01/08/17 14:40 Blood Blood Culture - Preliminary NO GROWTH AFTER 24 HOURS Resulted 01/09/17 15:00 Pleural Fluid Gram Stain - Final Resulted 01/09/17 15:00 Pleural Fluid Body Fluid Culture Pending Resulted 01/08/17 14:40 Nasal Nares MRSA Culture - Final NO METHICILLIN RESISTANT STAPH AUREUS... Complete 01/08/17 14:40 Rectum VRE Culture - Final NO VANCOMYCIN RESISTANT ENTEROCOCCUS ... Complete Laboratory Tests Test 01/10/17 07:30 White Blood Count 4.1 K/UL (4.8-10.8) L Red Blood Count 3.32 M/UL (4.70-6.10) L Hemoglobin 9.6 G/DL (14.2-18.0) L Hematocrit 29.5 % (42.0-52.0) L Mean Corpuscular Volume 89 FL (80-99) Mean Corpuscular Hemoglobin 28.9 PG (27.0-31.0) Mean Corpuscular Hemoglobin Concent 32.6 G/DL (32.0-36.0) Red Cell Distribution Width 14.4 % (11.6-14.8) Platelet Count 98 K/UL (150-450) L Mean Platelet Volume 7.3 FL (6.5-10.1) Neutrophils (%) (Auto) % (45.0-75.0) Lymphocytes (%) (Auto) % (20.0-45.0) Monocytes (%) (Auto) % (1.0-10.0) Eosinophils (%) (Auto) % (0.0-3.0) Basophils (%) (Auto) % (0.0-2.0) Differential Total Cells Counted 100 Neutrophils % (Manual) 64 % (45-75) Lymphocytes % (Manual) 26 % (20-45) Monocytes % (Manual) 8 % (1-10) Eosinophils % (Manual) 1 % (0-3) Basophils % (Manual) 0 % (0-2) Band Neutrophils 1 % (0-8) Nucleated Red Blood Cells 3 /100 WBC Toxic Granulation Occasional Platelet Estimate Decreased L Platelet Morphology Normal Hypochromasia 1+ Prothrombin Time 11.4 SEC (9.30-11.50) Prothromb Time International Ratio 1.1 (0.9-1.1) Activated Partial Thromboplast Time 34 SEC (23-33) H Sodium Level 139 mEQ/L (135-145) Potassium Level 3.3 mEQ/L (3.4-4.9) L Chloride Level 104 mEQ/L (98-107) Carbon Dioxide Level 20 mEQ/L (20-30) Anion Gap 15 (5-15) Blood Urea Nitrogen 23 mg/dL (7-23) # Creatinine 0.8 mg/dL (0.7-1.2) Estimat Glomerular Filtration Rate > 60 mL/min (>60) Glucose Level 122 mg/dL (74-106) H Calcium Level 7.7 mg/dL (8.6-10.2) L Phosphorus Level 2.3 mg/dL (2.5-4.8) L Magnesium Level 2.2 mg/dL (1.7-2.5) Iron Level 40 ug/dL (59-158) L Total Iron Binding Capacity 164 ug/dL (250-400) L Percent Iron Saturation 24 % (15-50) Unsaturated Iron Binding 124 ug/dL (112-346) Ferritin 396 ng/mL (10-230) H Total Bilirubin 0.7 mg/dL (0.0-1.2) Aspartate Amino Transf (AST/SGOT) 56 U/L (5-40) H Alanine Aminotransferase (ALT/SGPT) 32 U/L (3-41) Alkaline Phosphatase 54 U/L (40-129) Total Protein 5.4 g/dL (6.6-8.7) L Albumin 1.6 g/dL (3.5-5.2) L Globulin 3.8 g/dL Albumin/Globulin Ratio 0.4 (1.0-2.7) L Current Medications Medications (Trade) Dose Ordered Sig/Abbi Route PRN Reason Start Time Stop Time Status Last Admin Dose Admin Acetaminophen (Tylenol) 650 mg Q4H PRN ORAL T>100.5 01/10/17 18:45 02/09/17 18:44 Albuterol/ Ipratropium (DuoNeb 0.5-3(2.5)mg/3ml) 3 ml Q4H PRN HHN Shortness of Breath 01/10/17 18:45 01/15/17 18:44 Cefepime HCl 1 gm/ Dextrose 55 ml @ 110 mls/hr Q24H IV 01/10/17 21:00 01/17/17 20:59 Heparin Sodium (Porcine) (Heparin 5000 units/ml) 5,000 units EVERY 12 HOURS SUBQ 01/10/17 21:00 02/09/17 20:59 Nitroglycerin (Ntg) 0.4 mg Q5M PRN SL Prn Chest Pain 01/10/17 18:15 02/09/17 18:14 Ondansetron HCl (Zofran) 4 mg Q6H PRN IVP Nausea & Vomiting 01/10/17 19:00 02/09/17 18:59 Pantoprazole (Protonix) 40 mg DAILY ORAL 01/11/17 09:00 02/10/17 08:59 Phosphorus (Phospha 250 Neutral) 250 mg THREE TIMES A DAY ORAL 01/11/17 09:00 02/10/17 08:59 Polyethylene Glycol (Miralax) 17 gm DAILYPRN PRN ORAL Constipation 01/10/17 19:00 02/09/17 18:59 Potassium Chloride (K-Dur) 40 meq DAILY ORAL 01/11/17 09:00 02/10/17 08:59 Promethazine HCl/ Codeine (Phenergan with Codeine) 5 ml Q4H PRN ORAL For Cough 01/10/17 18:45 02/09/17 18:44 Propranolol HCl (Inderal) 10 mg Q8HR ORAL 01/10/17 22:00 02/09/17 21:59 Sodium Chloride 1,000 ml @ 75 mls/hr [id number] IV 01/10/17 19:00 02/09/17 18:59 Temazepam (Restoril) 15 mg HSPRN PRN ORAL Insomnia 01/11/17 21:00 01/18/17 20:59 Thiamine HCl (Vitamin B1) 100 mg DAILY ORAL 01/11/17 09:00 02/10/17 08:59 Vancomycin HCl (Vanco rx to dose) 1 ea DAILY PRN MISC Per rx protocol 01/10/17 19:00 02/09/17 18:59 Vancomycin HCl/ Dextrose (Vancomycin/D5W) 275 ml @ 183.708 mls/hr Q24H IVPB 01/11/17 10:00 01/16/17 09:59 ALEJANDRA TEE M.D. January 10, 2017 18:37
[2017-01-10] MEDS ORDERED: DuoNeb 0.5-3(2.5)mg/3ml neb HHN PRN (18:45)
[2017-01-10] MEDS ORDERED: Miralax 17gm pkt ORAL PRN (19:00)
[2017-01-10 20:00] VITALS: BP 96/51
[2017-01-10] MEDS ORDERED: Cefepime HCl 1 GM in D5W 55 ML IV SCH (21:00)
[2017-01-10 22:14] LABS: PROTEIN, BODY FLUID 0.5 g/dL (.)
[2017-01-11] VITALS: BP 128/77
[2017-01-11 04:00] VITALS: BP 121/71
[2017-01-11] MEDS: Propranolol 10mg tab ORAL SCH ×3 (05:54→21:14)
[2017-01-11 07:57] VITALS: BP 111/66
[2017-01-11] MEDS: Heparin 5000 units/ml inj SUBQ SCH ×2 (09:00→21:00)
[2017-01-11] MEDS: Phospha 250 Neutral tab ORAL SCH ×3 (09:19→18:02)
[2017-01-11] MEDS: Thiamine 100mg tab ORAL SCH (09:19)
[2017-01-11] MEDS ORDERED: Vancomycin 1 GM in D5W 275 ML IVPB SCH (10:00)
[2017-01-11 10:16] LABS: BD FL SOURCE THORACENTESIS; BD FL VOLUME 24 mL; LDH, BODY FLUID 40 U/L
[2017-01-11 11:48] VITALS: BP 118/70
--- NOTE | 2017-01-11 12:54 | Infectious Diseases Prog Note ---
Assessment/Plan Assessment/Plan A: The patient is a 61-year-old male with Left pleural effusion / Empyema Gram stain : GPR, GPC and GNR , Cx :P SP CTube by IR Ultrasound-guided left thoracentesis yielding 1160 cc of of pus from 2 different loculated collections pt refusing VATS Probable pneumonia Seizure disorder. History of alcohol abuse, marijuana abuse Anemia HIV test : Neg PLAN: cont on vancomycin and cefepime day # 3 Monitor CBC Monitor BMP Monitor cultures (blood, Pleura and sputum) Monitor chest x-ray Subjective Allergies: Coded Allergies: No Known Allergies (Verified , 01/25/10) Subjective Fever Objective Vital Signs Last 24 Hour Vital Signs Date Time Temp Pulse Resp B/P Pulse Ox O2 Delivery O2 Flow Rate FiO2 01/11/17 11:48 101.2 93 20 118/70 97 Room Air 01/11/17 07:57 99.0 89 19 111/66 97 Nasal Cannula 2.0 01/11/17 07:19 Nasal Cannula 2.0 01/11/17 07:18 96 Nasal Cannula 2.0 01/11/17 07:16 70 18 Nasal Cannula 2.0 01/11/17 05:54 95 121/71 01/11/17 04:00 98.2 95 20 121/71 97 Room Air 01/11/17 00:00 97.9 89 20 128/77 95 Room Air 01/10/17 22:00 81 99/51 01/10/17 20:00 98.7 91 20 96/51 98 Room Air 01/10/17 19:47 92 18 Room Air 01/10/17 17:33 100.0 01/10/17 16:00 94 01/10/17 15:42 99.0 93 20 121/79 98 Room Air 01/10/17 13:22 95 124/81 01/10/17 13:07 97.9 95 22 124/81 98 Nasal Cannula 2.0 Height (Feet): 5 Height (Inches): 7.00 Weight (Pounds): 114 HEENT: anicteric Respiratory/Chest: lungs clear - Lt CT + Cardiovascular: normal rate Abdomen: non distended Microbiology Date/Time Source Procedure Growth Status 01/08/17 14:50 Blood Blood Culture - Preliminary NO GROWTH AFTER 48 HOURS Resulted 01/08/17 14:40 Blood Blood Culture - Preliminary NO GROWTH AFTER 48 HOURS Resulted 01/09/17 15:00 Pleural Fluid Gram Stain - Final Resulted 01/09/17 15:00 Pleural Fluid Body Fluid Culture Pending Resulted 01/10/17 10:00 Sputum Gram Stain - Final Resulted 01/10/17 10:00 Sputum Sputum Culture - Preliminary NO GROWTH Resulted 01/08/17 14:40 Nasal Nares MRSA Culture - Final NO METHICILLIN RESISTANT STAPH AUREUS... Complete 01/08/17 14:40 Rectum VRE Culture - Final NO VANCOMYCIN RESISTANT ENTEROCOCCUS ... Complete Current Medications Medications (Trade) Dose Ordered Sig/Abbi Route PRN Reason Start Time Stop Time Status Last Admin Dose Admin Acetaminophen (Tylenol) 650 mg Q4H PRN ORAL T>100.5 01/10/17 18:45 02/09/17 18:44 01/11/17 12:31 Albuterol/ Ipratropium (DuoNeb 0.5-3(2.5)mg/3ml) 3 ml Q4H PRN HHN Shortness of Breath 01/10/17 18:45 01/15/17 18:44 Cefepime HCl 1 gm/ Dextrose 55 ml @ 110 mls/hr Q24H IV 01/10/17 21:00 01/17/17 20:59 01/10/17 21:49 Heparin Sodium (Porcine) (Heparin 5000 units/ml) 5,000 units EVERY 12 HOURS SUBQ 01/10/17 21:00 02/09/17 20:59 Nitroglycerin (Ntg) 0.4 mg Q5M PRN SL Prn Chest Pain 01/10/17 18:15 02/09/17 18:14 Ondansetron HCl (Zofran) 4 mg Q6H PRN IVP Nausea & Vomiting 01/10/17 19:00 02/09/17 18:59 Pantoprazole (Protonix) 40 mg DAILY ORAL 01/11/17 09:00 02/10/17 08:59 01/11/17 09:19 Phosphorus (Phospha 250 Neutral) 250 mg THREE TIMES A DAY ORAL 01/11/17 09:00 02/10/17 08:59 01/11/17 09:19 Polyethylene Glycol (Miralax) 17 gm DAILYPRN PRN ORAL Constipation 01/10/17 19:00 02/09/17 18:59 Potassium Chloride (K-Dur) 40 meq DAILY ORAL 01/11/17 09:00 02/10/17 08:59 01/11/17 09:19 Promethazine HCl/ Codeine (Phenergan with Codeine) 5 ml Q4H PRN ORAL For Cough 01/10/17 18:45 02/09/17 18:44 Propranolol HCl (Inderal) 10 mg Q8HR ORAL 01/10/17 22:00 02/09/17 21:59 01/11/17 05:54 Sodium Chloride 1,000 ml @ 75 mls/hr [id number] IV 01/10/17 19:00 02/09/17 18:59 01/11/17 09:19 Temazepam (Restoril) 15 mg HSPRN PRN ORAL Insomnia 01/11/17 21:00 01/18/17 20:59 Thiamine HCl (Vitamin B1) 100 mg DAILY ORAL 01/11/17 09:00 02/10/17 08:59 01/11/17 09:19 Vancomycin HCl (Vanco rx to dose) 1 ea DAILY PRN MISC Per rx protocol 01/10/17 19:00 02/09/17 18:59 Vancomycin HCl/ Dextrose (Vancomycin/D5W) 275 ml @ 183.708 mls/hr Q24H IVPB 01/11/17 10:00 01/16/17 09:59 01/11/17 09:22 ALEJANDRA TEE M.D. January 11, 2017 12:54
--- NOTE | 2017-01-11 15:09 | General Progress Note ---
Assessment/Plan Status: stable Assessment/Plan status; Acute renal failure- improving Dehydration- improving Hyperkalemia , due to above improved HypoNatremia due to above, improved Sz disorder Alcohol and drug abuse by history Anemia Plan; DC Huong Interiano and Phos suppl. Hydrate Avoid Nephrotoxics- Monitor lytes and renal parameters Sz percautions Thiamin- Anemia wheat PT OT- Low dose beta danielito Subjective ROS Limited/Unobtainable: No Constitutional: Reports: malaise Allergies: Coded Allergies: No Known Allergies (Verified , 01/25/10) Objective Last 24 Hour Vital Signs Date Time Temp Pulse Resp B/P Pulse Ox O2 Delivery O2 Flow Rate FiO2 01/11/17 14:24 98.4 01/11/17 13:48 96 104/61 01/11/17 13:30 100.8 01/11/17 11:48 101.2 93 20 118/70 97 Room Air 01/11/17 07:57 99.0 89 19 111/66 97 Nasal Cannula 2.0 01/11/17 07:19 Nasal Cannula 2.0 01/11/17 07:18 96 Nasal Cannula 2.0 01/11/17 07:16 70 18 Nasal Cannula 2.0 01/11/17 05:54 95 121/71 01/11/17 04:00 98.2 95 20 121/71 97 Room Air 01/11/17 00:00 97.9 89 20 128/77 95 Room Air 01/10/17 22:00 81 99/51 01/10/17 20:00 98.7 91 20 96/51 98 Room Air 01/10/17 19:47 92 18 Room Air 01/10/17 17:33 100.0 01/10/17 16:00 94 01/10/17 15:42 99.0 93 20 121/79 98 Room Air Intake and Output 01/10/17 01/11/17 19:00 07:00 Intake Total 1156.166 ml 970 ml Balance 1156.166 ml 970 ml Intake Oral 240 ml 240 ml IV Total 916.166 ml 730 ml # Voids 1 2 # Bowel Movements 1 1 Height (Feet): 5 Height (Inches): 7.00 Weight (Pounds): 114 General Appearance: no apparent distress Objective other PE not changed SHANNON GOODSON January 11, 2017 15:09
--- NOTE | 2017-01-11 15:26 | Pulmonology Progress Note ---
Assessment/Plan Problems: (1) Empyema (2) ATN (acute tubular necrosis) (3) Seizure disorder (4) Homelessness (5) noncompliance (6) h/o chronic seizure disorder (7) Altered level of consciousness Assessment/Plan renal function improving d/w thoracic continue abx f/u renal function refusing thoracoscopy chest tube draining check cultures Subjective ROS Limited/Unobtainable: No Constitutional: Reports: no symptoms HEENT: Repors: no symptoms Allergies: Coded Allergies: No Known Allergies (Verified , 01/25/10) Objective Last 24 Hour Vital Signs Date Time Temp Pulse Resp B/P Pulse Ox O2 Delivery O2 Flow Rate FiO2 01/11/17 14:24 98.4 01/11/17 13:48 96 104/61 01/11/17 13:30 100.8 01/11/17 11:48 101.2 93 20 118/70 97 Room Air 01/11/17 07:57 99.0 89 19 111/66 97 Nasal Cannula 2.0 01/11/17 07:19 Nasal Cannula 2.0 01/11/17 07:18 96 Nasal Cannula 2.0 01/11/17 07:16 70 18 Nasal Cannula 2.0 01/11/17 05:54 95 121/71 01/11/17 04:00 98.2 95 20 121/71 97 Room Air 01/11/17 00:00 97.9 89 20 128/77 95 Room Air 01/10/17 22:00 81 99/51 01/10/17 20:00 98.7 91 20 96/51 98 Room Air 01/10/17 19:47 92 18 Room Air 01/10/17 17:33 100.0 01/10/17 16:00 94 01/10/17 15:42 99.0 93 20 121/79 98 Room Air Intake and Output 01/10/17 01/11/17 19:00 07:00 Intake Total 1156.166 ml 970 ml Balance 1156.166 ml 970 ml Intake Oral 240 ml 240 ml IV Total 916.166 ml 730 ml # Voids 1 2 # Bowel Movements 1 1 General Appearance: WD/WN HEENT: normocephalic Respiratory/Chest: chest wall non-tender, lungs clear, other - chest tube in place Cardiovascular: normal peripheral pulses, normal rate Abdomen: normal bowel sounds, soft, non tender Extremities: no cyanosis Skin: no rash Neurologic/Psychiatric: [place] feller II-XII grossly normal, no motor/sensory deficits Microbiology Date/Time Source Procedure Growth Status 01/09/17 15:00 Pleural Fluid Gram Stain - Final Resulted 01/09/17 15:00 Pleural Fluid Body Fluid Culture Pending Resulted 01/10/17 10:00 Sputum Gram Stain - Final Resulted 01/10/17 10:00 Sputum Sputum Culture - Preliminary NO GROWTH Resulted Current Medications Medications (Trade) Dose Ordered Sig/Abbi Route PRN Reason Start Time Stop Time Status Last Admin Dose Admin Acetaminophen (Tylenol) 650 mg Q4H PRN ORAL T>100.5 01/10/17 18:45 02/09/17 18:44 01/11/17 12:31 Albuterol/ Ipratropium (DuoNeb 0.5-3(2.5)mg/3ml) 3 ml Q4H PRN HHN Shortness of Breath 01/10/17 18:45 01/15/17 18:44 Cefepime HCl 1 gm/ Dextrose 55 ml @ 110 mls/hr Q24H IV 01/10/17 21:00 01/17/17 20:59 01/10/17 21:49 Heparin Sodium (Porcine) (Heparin 5000 units/ml) 5,000 units EVERY 12 HOURS SUBQ 01/10/17 21:00 02/09/17 20:59 Nitroglycerin (Ntg) 0.4 mg Q5M PRN SL Prn Chest Pain 01/10/17 18:15 02/09/17 18:14 Ondansetron HCl (Zofran) 4 mg Q6H PRN IVP Nausea & Vomiting 01/10/17 19:00 02/09/17 18:59 Pantoprazole (Protonix) 40 mg DAILY ORAL 01/11/17 09:00 02/10/17 08:59 01/11/17 09:19 Phosphorus (Phospha 250 Neutral) 250 mg THREE TIMES A DAY ORAL 01/11/17 09:00 02/10/17 08:59 01/11/17 13:47 Polyethylene Glycol (Miralax) 17 gm DAILYPRN PRN ORAL Constipation 01/10/17 19:00 02/09/17 18:59 Potassium Chloride (K-Dur) 40 meq DAILY ORAL 01/11/17 09:00 02/10/17 08:59 01/11/17 09:19 Promethazine HCl/ Codeine (Phenergan with Codeine) 5 ml Q4H PRN ORAL For Cough 01/10/17 18:45 02/09/17 18:44 Propranolol HCl (Inderal) 10 mg Q8HR ORAL 01/10/17 22:00 02/09/17 21:59 01/11/17 05:54 Sodium Chloride 1,000 ml @ 75 mls/hr [id number] IV 01/10/17 19:00 02/09/17 18:59 01/11/17 09:19 Temazepam (Restoril) 15 mg HSPRN PRN ORAL Insomnia 01/11/17 21:00 01/18/17 20:59 Thiamine HCl (Vitamin B1) 100 mg DAILY ORAL 01/11/17 09:00 02/10/17 08:59 01/11/17 09:19 Vancomycin HCl (Vanco rx to dose) 1 ea DAILY PRN MISC Per rx protocol 01/10/17 19:00 02/09/17 18:59 Vancomycin HCl/ Dextrose (Vancomycin/D5W) 275 ml @ 183.708 mls/hr Q24H IVPB 01/11/17 10:00 01/16/17 09:59 01/11/17 09:22 IVY CONNELLY January 11, 2017 15:26
[2017-01-11 15:55] VITALS: BP 99/62
[2017-01-11 20:00] VITALS: BP 122/69
[2017-01-11] MEDS: Cefepime HCl 1 GM in D5W 55 ML IV SCH (21:14)
[2017-01-12] VITALS (12 sets, daily range): BP systolic 73–143; BP diastolic 53–94
[2017-01-12] MEDS: Promethazine/Codeine 5ml UD ORAL PRN ×2 (01:40→08:53)
[2017-01-12] MEDS: Propranolol 10mg tab ORAL SCH ×2 (06:00→22:00)
[2017-01-12 07:27] LABS: BASOPHILS % (AUTO) 1.9 % (0.0-2.0); EOSINOPHILS % (AUTO) 0.5 % (0.0-3.0); MEAN CORPUSCULAR VOLUME 91 FL (80-99); MEAN PLATELET VOLUME 7.5 FL (6.5-10.1); MONOCYTES % (AUTO) 18.7 % (1.0-10.0); PLATELET COUNT 105 K/UL (150-450); RED BLOOD COUNT 3.82 M/UL (4.70-6.10); RED CELL DISTRIBUTION WIDTH 14.7 % (11.6-14.8); WHITE BLOOD COUNT 4.9 K/UL (4.8-10.8)
[2017-01-12 07:48] LABS: ALANINE AMINOTRANSFERASE 31 U/L (3-41); ALBUMIN/GLOBULIN RATIO 0.5 (1.0-2.7); ANION GAP 15 (5-15); ASPARTATE AMINO TRANSFERASE 36 U/L (5-40); CALCIUM 7.6 mg/dL (8.6-10.2); CARBON DIOXIDE 23 mEQ/L (20-30); CHLORIDE 96 mEQ/L (98-107); CREATININE 0.8 mg/dL (0.7-1.2); GLOMERULAR FILTRATION RATE > 60 mL/min (>60); HEMOLYSIS 1; MAGNESIUM 1.6 mg/dL (1.7-2.5); PHOSPHORUS 3.1 mg/dL (2.5-4.8); POTASSIUM 3.7 mEQ/L (3.4-4.9); SODIUM 134 mEQ/L (135-145); TOTAL PROTEIN 5.9 g/dL (6.6-8.7)
--- NOTE | 2017-01-12 08:27 | Infectious Diseases Prog Note ---
Assessment/Plan Assessment/Plan A: The patient is a 61-year-old male with Left pleural effusion / Empyema Gram stain : GPR, GPC and GNR , Cx :P SP CTube by IR Ultrasound-guided left thoracentesis yielding 1160 cc of of pus from 2 different loculated collections pt refusing VATS Probable pneumonia Fever Seizure disorder. History of alcohol abuse, marijuana abuse Anemia HIV test : Neg Homelessness Noncompliance NKDA Full Code PLAN: cont on vancomycin and cefepime day # f/u cultures Monitor CBC Monitor BMP Monitor chest x-ray VATS if pt consents Subjective Allergies: Coded Allergies: No Known Allergies (Verified , 01/25/10) Subjective febrile SP drainage cath cultures pending Objective Vital Signs Last 24 Hour Vital Signs Date Time Temp Pulse Resp B/P Pulse Ox O2 Delivery O2 Flow Rate FiO2 01/12/17 06:00 92 110/72 01/12/17 04:00 99.1 94 18 111/59 100 Room Air 01/12/17 00:00 99.9 101 17 110/60 98 Room Air 01/11/17 22:14 100.3 01/11/17 21:14 105 122/69 01/11/17 20:00 102.0 105 20 122/69 96 Room Air 01/11/17 19:35 Nasal Cannula 2.0 01/11/17 19:34 98 Nasal Cannula 2.0 01/11/17 19:34 81 18 Nasal Cannula 2.0 01/11/17 15:55 99.5 92 21 99/62 95 Room Air 01/11/17 14:24 98.4 01/11/17 13:48 96 104/61 01/11/17 11:48 101.2 93 20 118/70 97 Room Air Height (Feet): 5 Height (Inches): 7.00 Weight (Pounds): 114 General Appearance: no acute distress Respiratory/Chest: decreased breath sounds Cardiovascular: normal rate, regular rhythm Abdomen: normal bowel sounds, soft, non tender, non distended Microbiology Date/Time Source Procedure Growth Status 01/09/17 15:00 Pleural Fluid Gram Stain - Final Resulted 01/09/17 15:00 Pleural Fluid Body Fluid Culture Pending Resulted 01/10/17 10:00 Sputum Gram Stain - Final Resulted 01/10/17 10:00 Sputum Sputum Culture - Preliminary NO GROWTH Resulted Laboratory Tests Test 01/12/17 06:55 White Blood Count 4.9 K/UL (4.8-10.8) Red Blood Count 3.82 M/UL (4.70-6.10) L Hemoglobin 11.1 G/DL (14.2-18.0) L Hematocrit 34.6 % (42.0-52.0) L Mean Corpuscular Volume 91 FL (80-99) Mean Corpuscular Hemoglobin 29.0 PG (27.0-31.0) Mean Corpuscular Hemoglobin Concent 32.0 G/DL (32.0-36.0) Red Cell Distribution Width 14.7 % (11.6-14.8) Platelet Count 105 K/UL (150-450) L Mean Platelet Volume 7.5 FL (6.5-10.1) Neutrophils (%) (Auto) 62.0 % (45.0-75.0) Lymphocytes (%) (Auto) 17.0 % (20.0-45.0) L Monocytes (%) (Auto) 18.7 % (1.0-10.0) H Eosinophils (%) (Auto) 0.5 % (0.0-3.0) Basophils (%) (Auto) 1.9 % (0.0-2.0) Sodium Level 134 mEQ/L (135-145) L Potassium Level 3.7 mEQ/L (3.4-4.9) Chloride Level 96 mEQ/L (98-107) L Carbon Dioxide Level 23 mEQ/L (20-30) Anion Gap 15 (5-15) Blood Urea Nitrogen 9 mg/dL (7-23) Creatinine 0.8 mg/dL (0.7-1.2) Estimat Glomerular Filtration Rate > 60 mL/min (>60) Glucose Level 101 mg/dL (74-106) Calcium Level 7.6 mg/dL (8.6-10.2) L Phosphorus Level 3.1 mg/dL (2.5-4.8) Magnesium Level 1.6 mg/dL (1.7-2.5) L Total Bilirubin 0.6 mg/dL (0.0-1.2) Aspartate Amino Transf (AST/SGOT) 36 U/L (5-40) Alanine Aminotransferase (ALT/SGPT) 31 U/L (3-41) Alkaline Phosphatase 57 U/L (40-129) Total Protein 5.9 g/dL (6.6-8.7) L Albumin 2.1 g/dL (3.5-5.2) L Globulin 3.8 g/dL Albumin/Globulin Ratio 0.5 (1.0-2.7) L Current Medications Medications (Trade) Dose Ordered Sig/Abbi Route PRN Reason Start Time Stop Time Status Last Admin Dose Admin Acetaminophen (Tylenol) 650 mg Q4H PRN ORAL T>100.5 01/10/17 18:45 02/09/17 18:44 01/11/17 21:15 Albuterol/ Ipratropium (DuoNeb 0.5-3(2.5)mg/3ml) 3 ml Q4H PRN HHN Shortness of Breath 01/10/17 18:45 01/15/17 18:44 Cefepime HCl/ Dextrose (Maxipime/D5W) 55 ml @ 110 mls/hr Q12HR IV 01/11/17 21:00 01/17/17 20:59 01/11/17 21:14 Heparin Sodium (Porcine) (Heparin 5000 units/ml) 5,000 units EVERY 12 HOURS SUBQ 01/10/17 21:00 02/09/17 20:59 Nitroglycerin (Ntg) 0.4 mg Q5M PRN SL Prn Chest Pain 01/10/17 18:15 02/09/17 18:14 Ondansetron HCl (Zofran) 4 mg Q6H PRN IVP Nausea & Vomiting 01/10/17 19:00 02/09/17 18:59 Pantoprazole (Protonix) 40 mg DAILY ORAL 01/11/17 09:00 02/10/17 08:59 01/11/17 09:19 Phosphorus (Phospha 250 Neutral) 250 mg THREE TIMES A DAY ORAL 01/11/17 09:00 02/10/17 08:59 01/11/17 18:02 Polyethylene Glycol (Miralax) 17 gm DAILYPRN PRN ORAL Constipation 01/10/17 19:00 02/09/17 18:59 Potassium Chloride (K-Dur) 40 meq DAILY ORAL 01/11/17 09:00 02/10/17 08:59 01/11/17 09:19 Promethazine HCl/ Codeine (Phenergan with Codeine) 5 ml Q4H PRN ORAL For Cough 01/10/17 18:45 02/09/17 18:44 01/12/17 01:40 Propranolol HCl (Inderal) 10 mg Q8HR ORAL 01/10/17 22:00 02/09/17 21:59 01/11/17 21:14 Sodium Chloride 1,000 ml @ 75 mls/hr [id number] IV 01/10/17 19:00 02/09/17 18:59 01/11/17 21:15 Temazepam (Restoril) 15 mg HSPRN PRN ORAL Insomnia 01/11/17 21:00 01/18/17 20:59 01/11/17 21:15 Thiamine HCl (Vitamin B1) 100 mg DAILY ORAL 01/11/17 09:00 02/10/17 08:59 01/11/17 09:19 Vancomycin HCl 1 ea 1 ea DAILY PRN MISC Per rx protocol 01/10/17 19:00 02/09/17 18:59 Vancomycin HCl/ Dextrose (Vancomycin/D5W) 275 ml @ 183.708 mls/hr Q24H IVPB 01/11/17 10:00 01/16/17 09:59 01/11/17 09:22 HIGINIO LOWERY January 12, 2017 08:27
[2017-01-12] MEDS: Thiamine 100mg tab ORAL SCH (08:29)
[2017-01-12] MEDS: Phospha 250 Neutral tab ORAL SCH ×3 (08:29→18:02)
[2017-01-12] MEDS: Cefepime HCl 1 GM in D5W 55 ML IV SCH ×2 (08:30→21:08)
[2017-01-12] MEDS: Heparin 5000 units/ml inj SUBQ SCH ×2 (08:53→21:15)
--- NOTE | 2017-01-12 09:12 | Pulmonology Progress Note ---
Assessment/Plan Assessment/Plan ASSESSMENT sepsis empyema large left multiloculated pleural effusion s/p thoracenteses 01/08- 1160cc left loculated PNT ( 2 to tap, iatrogenic) trapped left lung s/p insertion of CT 01/10 probable PNA anemia/ KURTIS ARF/ATN -resolved transaminitis DM seizure disorder hx of ETOH abuse DM protein calorie malnutrition thrombocytopenia noncompliance homeless hypo Mg PLAN OF CARE transfer to GI initial CXR with loculated TERENCE pleural effusion CT chest revealed multiloculated large left pleural effusion s/p tap-1160 cc CXR post-tap with L loculated PNT, no tension component, s/p insertion of CT 01/10 by radiology CXR re -demonstrates persistent left pleural effusion daily CXR while CT in declining thoracoscopy CT surgeon on case abx, ID follows sputum and blood cx negative pleural fluid cx pending BS management with SS of insulin, [id number] seizure precautions, not on any antiepileptic medications, ? r/t hx of ETOH abuse urine tox screen + marijuana, serum ETOH level-13 HIV test negative monitor HH, iron panel with low iron, HH trending up LFT down to normal replace Mg, check in am continue Thiamine assessment counselor on abstinence from ETOH and street drugs check prealbumin dietary eval PT/OT bowel regiemn DVT, GI prophylaxis monitor PLT if further trend down will dc heparin case discussed and evaluated by supervising physician Subjective Allergies: Coded Allergies: No Known Allergies (Verified , 01/25/10) Subjective patient with SOB,. fever -101.8, tachycardic initially placed on 100% NRM ABG stable , later was able to be weaned to O2 via NC Objective Last 24 Hour Vital Signs Date Time Temp Pulse Resp B/P Pulse Ox O2 Delivery O2 Flow Rate FiO2 01/12/17 08:00 101.8 119 19 143/94 94 Room Air 01/12/17 06:00 92 110/72 01/12/17 04:00 99.1 94 18 111/59 100 Room Air 01/12/17 00:00 99.9 101 17 110/60 98 Room Air 01/11/17 22:14 100.3 01/11/17 21:14 105 122/69 01/11/17 20:00 102.0 105 20 122/69 96 Room Air 01/11/17 19:35 Nasal Cannula 2.0 01/11/17 19:34 98 Nasal Cannula 2.0 01/11/17 19:34 81 18 Nasal Cannula 2.0 01/11/17 15:55 99.5 92 21 99/62 95 Room Air 01/11/17 14:24 98.4 01/11/17 13:48 96 104/61 01/11/17 11:48 101.2 93 20 118/70 97 Room Air Intake and Output 01/11/17 01/12/17 19:00 07:00 Intake Total 1877.416 ml 730 ml Output Total 600 ml 590 ml Balance 1277.416 ml 140 ml Intake Oral 760 ml IV Total 1117.416 ml 730 ml Output Urine Total 600 ml 400 ml Drainage Total 190 ml # Voids 2 # Bowel Movements 1 General Appearance: other - mild respiratory distress , awake, alert, responsive, cachectic AA male HEENT: normocephalic, atraumatic, anicteric Respiratory/Chest: decreased breath sounds - on the left , left thoracic vent Cardiovascular: normal peripheral pulses, normal rate, tachycardia Abdomen: normal bowel sounds, soft, non tender, non distended Extremities: no edema Neurologic/Psychiatric: no motor/sensory deficits, alert, responsive Microbiology Date/Time Source Procedure Growth Status 01/09/17 15:00 Pleural Fluid Gram Stain - Final Resulted 01/09/17 15:00 Pleural Fluid Body Fluid Culture Pending Resulted 01/10/17 10:00 Sputum Gram Stain - Final Resulted 01/10/17 10:00 Sputum Sputum Culture - Preliminary NO GROWTH Resulted Laboratory Tests 01/12/17 06:55: White Blood Count 4.9, Red Blood Count 3.82L, Hemoglobin 11.1L, Hematocrit 34.6L , Mean Corpuscular Volume 91, Mean Corpuscular Hemoglobin 29.0, Mean Corpuscular Hemoglobin Concent 32.0, Red Cell Distribution Width 14.7, Platelet Count 105L, Mean Platelet Volume 7.5, Neutrophils (%) (Auto) 62.0, Lymphocytes ( %) (Auto) 17.0L, Monocytes (%) (Auto) 18.7H, Eosinophils (%) (Auto) 0.5, Basophils (%) (Auto) 1.9, Sodium Level 134L, Potassium Level 3.7, Chloride Level 96L, Carbon Dioxide Level 23, Anion Gap 15, Blood Urea Nitrogen 9, Creatinine 0.8, Estimat Glomerular Filtration Rate > 60, Glucose Level 101, Calcium Level 7.6L, Phosphorus Level 3.1, Magnesium Level 1.6L, Total Bilirubin 0.6, Aspartate Amino Transf (AST/SGOT) 36, Alanine Aminotransferase (ALT/SGPT) 31, Alkaline Phosphatase 57, Total Protein 5.9L, Albumin 2.1L, Globulin 3.8, Albumin/Globulin Ratio 0.5L Current Medications Medications (Trade) Dose Ordered Sig/Abbi Route PRN Reason Start Time Stop Time Status Last Admin Dose Admin Acetaminophen (Tylenol) 650 mg Q4H PRN ORAL T>100.5 01/10/17 18:45 02/09/17 18:44 01/12/17 08:29 Albuterol/ Ipratropium (DuoNeb 0.5-3(2.5)mg/3ml) 3 ml Q4H PRN HHN Shortness of Breath 01/10/17 18:45 01/15/17 18:44 Cefepime HCl/ Dextrose (Maxipime/D5W) 55 ml @ 110 mls/hr Q12HR IV 01/11/17 21:00 01/17/17 20:59 01/12/17 08:30 Heparin Sodium (Porcine) (Heparin 5000 units/ml) 5,000 units EVERY 12 HOURS SUBQ 01/10/17 21:00 02/09/17 20:59 Nitroglycerin (Ntg) 0.4 mg Q5M PRN SL Prn Chest Pain 01/10/17 18:15 02/09/17 18:14 Ondansetron HCl (Zofran) 4 mg Q6H PRN IVP Nausea & Vomiting 01/10/17 19:00 02/09/17 18:59 Pantoprazole (Protonix) 40 mg DAILY ORAL 01/11/17 09:00 02/10/17 08:59 01/12/17 08:29 Phosphorus (Phospha 250 Neutral) 250 mg THREE TIMES A DAY ORAL 01/11/17 09:00 02/10/17 08:59 01/12/17 08:29 Polyethylene Glycol (Miralax) 17 gm DAILYPRN PRN ORAL Constipation 01/10/17 19:00 02/09/17 18:59 Potassium Chloride (K-Dur) 40 meq DAILY ORAL 01/11/17 09:00 02/10/17 08:59 01/12/17 08:29 Promethazine HCl/ Codeine (Phenergan with Codeine) 5 ml Q4H PRN ORAL For Cough 01/10/17 18:45 02/09/17 18:44 01/12/17 08:53 Propranolol HCl (Inderal) 10 mg Q8HR ORAL 01/10/17 22:00 02/09/17 21:59 01/11/17 21:14 Sodium Chloride 1,000 ml @ 75 mls/hr [id number] IV 01/10/17 19:00 02/09/17 18:59 01/11/17 21:15 Temazepam (Restoril) 15 mg HSPRN PRN ORAL Insomnia 01/11/17 21:00 01/18/17 20:59 01/11/17 21:15 Thiamine HCl (Vitamin B1) 100 mg DAILY ORAL 01/11/17 09:00 02/10/17 08:59 01/12/17 08:29 Vancomycin HCl 1 ea 1 ea DAILY PRN MISC Per rx protocol 01/10/17 19:00 02/09/17 18:59 Vancomycin HCl/ Dextrose (Vancomycin/D5W) 275 ml @ 183.708 mls/hr Q24H IVPB 01/11/17 10:00 01/16/17 09:59 01/11/17 09:22 Antony ZacariasMeagan ramirez NP January 12, 2017 09:12
--- NOTE | 2017-01-12 09:41 | General Progress Note ---
Assessment/Plan Status: stable Status Narrative has left chest drain for empyema Assessment/Plan status; Acute renal failure- improving Dehydration- improving Hyperkalemia , due to above improved HypoNatremia due to above, improved Sz disorder Alcohol and drug abuse by history Anemia Empyema has chest drain Plan; DC Huong Interiano and Phos suppl. Hydrate Avoid Nephrotoxics- Monitor lytes and renal parameters Sz percautions Thiamin- Anemia wheat PT OT- Low dose beta danielito Subjective ROS Limited/Unobtainable: No Constitutional: Reports: malaise Allergies: Coded Allergies: No Known Allergies (Verified , 01/25/10) Objective Last 24 Hour Vital Signs Date Time Temp Pulse Resp B/P Pulse Ox O2 Delivery O2 Flow Rate FiO2 01/12/17 08:00 101.8 119 19 143/94 94 Room Air 01/12/17 06:00 92 110/72 01/12/17 04:00 99.1 94 18 111/59 100 Room Air 01/12/17 00:00 99.9 101 17 110/60 98 Room Air 01/11/17 22:14 100.3 01/11/17 21:14 105 122/69 01/11/17 20:00 102.0 105 20 122/69 96 Room Air 01/11/17 19:35 Nasal Cannula 2.0 01/11/17 19:34 98 Nasal Cannula 2.0 01/11/17 19:34 81 18 Nasal Cannula 2.0 01/11/17 15:55 99.5 92 21 99/62 95 Room Air 01/11/17 14:24 98.4 01/11/17 13:48 96 104/61 01/11/17 11:48 101.2 93 20 118/70 97 Room Air Intake and Output 01/11/17 01/12/17 19:00 07:00 Intake Total 1877.416 ml 730 ml Output Total 600 ml 590 ml Balance 1277.416 ml 140 ml Intake Oral 760 ml IV Total 1117.416 ml 730 ml Output Urine Total 600 ml 400 ml Drainage Total 190 ml # Voids 2 # Bowel Movements 1 Laboratory Tests 01/12/17 06:55: White Blood Count 4.9, Red Blood Count 3.82L, Hemoglobin 11.1L, Hematocrit 34.6L , Mean Corpuscular Volume 91, Mean Corpuscular Hemoglobin 29.0, Mean Corpuscular Hemoglobin Concent 32.0, Red Cell Distribution Width 14.7, Platelet Count 105L, Mean Platelet Volume 7.5, Neutrophils (%) (Auto) 62.0, Lymphocytes ( %) (Auto) 17.0L, Monocytes (%) (Auto) 18.7H, Eosinophils (%) (Auto) 0.5, Basophils (%) (Auto) 1.9, Sodium Level 134L, Potassium Level 3.7, Chloride Level 96L, Carbon Dioxide Level 23, Anion Gap 15, Blood Urea Nitrogen 9, Creatinine 0.8, Estimat Glomerular Filtration Rate > 60, Glucose Level 101, Calcium Level 7.6L, Phosphorus Level 3.1, Magnesium Level 1.6L, Total Bilirubin 0.6, Aspartate Amino Transf (AST/SGOT) 36, Alanine Aminotransferase (ALT/SGPT) 31, Alkaline Phosphatase 57, Total Protein 5.9L, Albumin 2.1L, Globulin 3.8, Albumin/Globulin Ratio 0.5L 01/12/17 08:45: Vancomycin Level Trough 4.8L Height (Feet): 5 Height (Inches): 7.00 Weight (Pounds): 114 General Appearance: no apparent distress, other - febrile Cardiovascular: tachycardia Respiratory/Chest: decreased breath sounds Abdomen: soft Objective other PE not changed SHANNON GOODSON January 12, 2017 09:41
[2017-01-12] MEDS ORDERED: Vancomycin 1 GM in D5W 275 ML IVPB SCH ×2 (10:00→22:00)
[2017-01-12 10:26] LABS: ABG ALLEN TEST POSITIVE; ABG BASE EXCESS 1.2; ABG PCO2 34.5 mmHg (35.0-45.0)
--- NOTE | 2017-01-12 11:40 | Diagnostic Imaging Report ---
Indication: Chest Pain Comparison: 01/12/17 an earlier time A single view chest radiograph was obtained. Findings: There is no change. There is a pigtail drainage catheter at the left lung base. There is a large cavitary focus in the left upper chest which is primarily air-filled and corresponds to one of the loculated collections that was drained. Impression: Drainage catheter at the left lung base. No interval change
[2017-01-12] MEDS ORDERED: Miralax 17gm pkt ORAL PRN ×2 (12:00→20:30)
[2017-01-12] MEDS ORDERED: DuoNeb 0.5-3(2.5)mg/3ml neb HHN PRN ×2 (12:00→20:30)
[2017-01-12] MEDS ORDERED: Nitroglycerin Subl 0.4mg tab (Bottle Of 25) SL PRN ×2 (12:00→20:05)
[2017-01-12] MEDS ORDERED: Promethazine/Codeine 5ml UD ORAL PRN ×2 (12:53→20:30)
[2017-01-12] MEDS ORDERED: Propranolol 10mg tab ORAL SCH (14:00)
[2017-01-12] MEDS ORDERED: Tubing IV Secondary IV ONE (15:22)
--- NOTE | 2017-01-12 19:19 | Emergency Room Report ---
History of Present Illness General Chief Complaint: Generalized Weakness Source: Medical Record Present Illness Allergies: Coded Allergies: No Known Allergies (Verified , 01/25/10) Nursing Documentation-[facility] Past Medical History Deferred: Pt Cognitively Impaired Past Medical History: No History, Except For Hx Neurological Problems: Yes Hx Seizures: Yes - not currently on meds Physical Exam Vital Signs Date Time Temp Pulse Resp B/P Pulse Ox O2 Delivery O2 Flow Rate FiO2 01/08/17 11:24 96.8 117 20 141/92 99 Room Air 01/09/17 16:07 2.0 01/12/17 07:00 21 Procedures CPR/Code Blue CPR/Code Blue Narrative The patient was noted to have CODE BLUE. Patient had prior history of lung infection. Patient noted have become unresponsive. He is placed on cardiac cath lab radiology technologist by staff. The patient was given IV calcium as well as IV bicarbonate and epinephrine x1 with a return spontaneous circulation. The patient was intubated after requiring endoscopy x1 with an ET tube at 24 CM at the lip. The patient was noted to have some blood-tinged material from the ET tube and- and near vocal cords. Patient was noted to have bilateral breath sounds a slight decrease in breath sounds the left side where he had previous tube for drainage. Trachea midline. The patient was noted to have return spontaneous regulation after one dose of epi. The primary care physician was notified and patient transferred ICU. Intubation Intubation : Consent: Emergent Time of Intubation: 19:11 Intubation Method: orotracheal Tube Size (cm): 8.0 Breath Sounds after Intubation: equal Intubation Complications: no complications, O2 saturation decreased Attempts: One Complications: Other - patient was noted to have aspirated prior to intubation Medical Decision Making Diagnostic Impression: Primary Impression: Pleural effusion associated with pulmonary infection Additional Impression: Sepsis Last Vital Signs Date Time Temp Pulse Resp B/P Pulse Ox O2 Delivery O2 Flow Rate FiO2 01/12/17 16:10 129 01/12/17 15:57 101.6 25 98/65 98 Non-Rebreather 15.0 01/12/17 07:00 21 Disposition: ADMITTED INPATIENT Condition: Serious Referrals: PREFERRED [facility],REFERRING (PCP) Fernando Young January 12, 2017 19:19
[2017-01-12 20:26] LABS: ABG ALLEN TEST POSITIVE; ABG BASE EXCESS -5.2; ABG PCO2 57.3 mmHg (35.0-45.0)
[2017-01-12] MEDS ORDERED: Heparin 5000 units/ml inj SUBQ SCH (21:00)
[2017-01-12] MEDS ORDERED: Cefepime HCl 1 GM in D5W 55 ML IV SCH (21:00)
[2017-01-12] MEDS ORDERED: Morphine Sulfate 4mg/ml Inj IVP PRN (21:15)
[2017-01-12] MEDS: LORazepam Inj 2mg/ml 1ml IV PRN (22:04)
[2017-01-12] MEDS: Vancomycin 1 GM in D5W 275 ML IVPB SCH (22:07)
[2017-01-13] VITALS (43 sets, daily range): BP systolic 67–150; BP diastolic 35–88
[2017-01-13] MEDS: LORazepam Inj 2mg/ml 1ml IV PRN ×3 (01:25→22:30)
[2017-01-13 04:11] LABS: MEAN CORPUSCULAR HEMOGLOBIN 28.7 PG (27.0-31.0); MEAN CORPUSCULAR HGB CONC 31.1 G/DL (32.0-36.0); MEAN CORPUSCULAR VOLUME 92 FL (80-99); MEAN PLATELET VOLUME 9.6 FL (6.5-10.1); PLATELET COUNT 90 K/UL (150-450)
[2017-01-13 04:32] LABS: ANION GAP 16 (5-15); CALCIUM 7.6 mg/dL (8.6-10.2); CARBON DIOXIDE 21 mEQ/L (20-30); CHLORIDE 101 mEQ/L (98-107); CREATININE 0.9 mg/dL (0.7-1.2); GLOMERULAR FILTRATION RATE > 60 mL/min (>60); HEMOLYSIS 5; MAGNESIUM 1.7 mg/dL (1.7-2.5); POTASSIUM 4.5 mEQ/L (3.4-4.9); SODIUM 138 mEQ/L (135-145)
[2017-01-13] MEDS: Propranolol 10mg tab ORAL SCH ×3 (05:57→22:00)
[2017-01-13] MEDS ORDERED: Sodium Bicarbonate 4% 2.4meq/5ml vial INJ PRN (07:00)
[2017-01-13] MEDS ORDERED: Heparin 2000 units/Ns 1000ml INJ PRN (07:00)
[2017-01-13] MEDS ORDERED: Lidocaine 1% Plain 30 ml INJ PRN (07:00)
[2017-01-13] MEDS: DOPamine 400mg/250ml 250 ML IV SCH (08:04)
[2017-01-13] MEDS: Cefepime HCl 1 GM in D5W 55 ML IV SCH ×2 (08:38→21:01)
[2017-01-13] MEDS: Phospha 250 Neutral tab ORAL SCH ×3 (08:38→17:48)
[2017-01-13] MEDS: Thiamine 100mg tab ORAL SCH (08:38)
[2017-01-13] MEDS: Heparin 5000 units/ml inj SUBQ SCH (08:39)
[2017-01-13] MEDS: KCl 10% 40mEq/30ml liquid NG SCH (08:39)
--- NOTE | 2017-01-13 08:55 | Diagnostic Imaging Report ---
Indications: Endotracheal intubation Technique: Portable AP chest at 2036 Findings: Comparison: 1033 Endotracheal tube has been placed, tip 4-5 cm above arslan. Lung bases excluded from image. Large loculated gas and fluid-filled structure persists in the upper left hemithorax. Patchy parenchymal consolidation, left costophrenic angle blunting, percutaneous drainage catheter persists in the/over left lung base. Left retrocardiac region less well demonstrated. No other change. IMPRESSION: Endotracheal tube in good position Increase in left basal opacity may be parenchymal/pleural in nature No other change from 10 hours prior, with limitation as described
[2017-01-13] MEDS: Dyna-Hex 2% Top Sol 8oz TOPIC SCH (09:00)
[2017-01-13] MEDS ORDERED: Thiamine 100mg tab ORAL SCH (09:00)
--- NOTE | 2017-01-13 09:16 | Pulmonolgy Critical Care Note ---
Critical Care - Asmt/Plan Assessment/Plan: ASSESSMENT acute hypoxemic respirtaory failure requiring intuabtion septic shock sepsis empyema large left multiloculated pleural effusion s/p thoracenteses 01/08- 1160cc left loculated PNT ( 2 to tap, iatrogenic) trapped left lung s/p insertion of CT 01/10 probable PNA anemia/ KURTIS ARF/ATN -resolved transaminitis DM seizure disorder hx of ETOH abuse DM protein calorie malnutrition thrombocytopenia noncompliance homeless hypo Mg PLAN OF CARE ICU Dopamine gtt continue , titrate to keep SBP above 90 CL to be placed stat vent care, titrate Fio2, TV, AC prn pulmonary toilet daily CXR and ABG IVF, additional bolus initial CXR with loculated TERENCE pleural effusion CT chest revealed multiloculated large left pleural effusion s/p tap-1160 cc CXR post-tap with L loculated PNT, no tension component, s/p insertion of CT 01/10 by radiology CXR re -demonstrates persistent left pleural effusion daily CXR while CT in declined thoracoscopy (CT surgeon spoke with patient ) abx, ID follows sputum and blood cx negative pleural fluid cx + Strep alpha hemolytic BS management with SS of insulin, [id number] seizure precautions, not on any antiepileptic medications, ? r/t hx of ETOH abuse urine tox screen + marijuana, serum ETOH level-13 HIV test negative monitor HH, iron panel with low iron, HH trending up LFT down to normal Mg stable after replacement continue Thiamine prior was counseled on abstinence from ETOH and street drugs ( when was alert) prealbumin pending dietary eval PT/OT bowel regimen DVT, GI prophylaxis PLT trendign down, will dc Heparin , do venous Dupelx and SCD ( if negative Venous) case discussed and evaluated by supervising physician Critical Care - Objective Last 24 Hour Vital Signs Date Time Temp Pulse Resp B/P Pulse Ox O2 Delivery O2 Flow Rate FiO2 01/13/17 08:04 77/50 01/13/17 07:02 108 32 100 01/13/17 07:00 109 34 67/52 99 Mechanical Ventilator 100 01/13/17 06:09 98.8 01/13/17 06:00 98.8 113 34 86/35 99 Mechanical Ventilator 100 01/13/17 05:57 104 71/49 01/13/17 05:11 118 36 100 01/13/17 05:00 101.2 113 37 71/51 99 Mechanical Ventilator 100 01/13/17 04:00 120 01/13/17 04:00 100.8 120 33 90/50 96 Mechanical Ventilator 100 01/13/17 03:00 125 33 77/39 96 Mechanical Ventilator 100 01/13/17 02:52 126 36 100 01/13/17 02:00 125 34 150/86 99 Mechanical Ventilator 100 01/13/17 01:00 125 31 128/55 97 Mechanical Ventilator 100 01/13/17 00:44 128 38 100 01/13/17 00:00 121 01/13/17 00:00 100.2 126 31 98/68 97 Mechanical Ventilator 100 01/12/17 23:00 122 31 98/68 97 Mechanical Ventilator 100 01/12/17 22:54 121 36 100 01/12/17 22:00 121 33 73/54 96 Mechanical Ventilator 100 01/12/17 22:00 114 85/56 01/12/17 21:00 116 33 104/73 97 Mechanical Ventilator 100 01/12/17 20:58 113 36 100 01/12/17 20:00 108 34 110/65 97 Mechanical Ventilator 100 01/12/17 20:00 108 01/12/17 19:30 98.0 108 30 121/67 95 Mechanical Ventilator 100 01/12/17 19:17 107 22 100 01/12/17 16:10 129 01/12/17 15:57 101.6 122 25 98/65 98 Non-Rebreather 15.0 01/12/17 14:39 102.0 01/12/17 13:03 131 143/70 01/12/17 12:00 116 01/12/17 12:00 98.6 110 25 143/70 93 Nasal Cannula 4.0 01/12/17 10:45 99.0 111 30 93/53 96 Non-Rebreather 15.0 01/12/17 10:30 100.2 115 28 101/62 96 Non-Rebreather 15.0 01/12/17 09:30 101.8 Status: obtunded, other - on vent Condition: critical HEENT: atraumatic, normocephalic, other - OP with ET in place, NGT intact Lungs: other - decreased BS on the left, Left thoracic vent Heart: HR/BP unstable - hypotensive Abdomen: soft, non-tender, active bowel sounds Extremities: other - trace edema BLE Micro: Microbiology Date/Time Source Procedure Growth Status 01/10/17 10:00 Sputum Gram Stain - Final Complete 01/10/17 10:00 Sputum Sputum Culture - Final NORMAL UPPER RESPIRATORY CRESCENCIO PRESENT Complete Critical Care - Subjective ROS Limited/Unobtainable: Yes Interval Events: decompensated last night, desaturated and required emergency oral intubation BP low, started on Dopamine gtt Condition: critical IV Access: peripheral EKG Rhythm: Sinus Rhythm FI02: 100 Vent Support Breath Rate: 14 Vent Support Mode: AC Vent Tidal Volume: 550 Sputum Amount: Small PEEP: 5.0 PIP: 34 Fluids: NS at 75 Drips: Dopamine gtt 2 mcg/kg/min I&O: Intake and Output 01/12/17 01/13/17 19:00 07:00 Intake Total 650 ml 750 ml Output Total 750 ml 970 ml Balance -100 ml -220 ml Intake Oral 650 ml IV Total 750 ml Output Urine Total 700 ml 970 ml Drainage Total 50 ml # Bowel Movements 2 2 CXR: 01/12 Endotracheal tube in good position Increase in left basal opacity may be parenchymal/pleural in nature ET-Tube: 8.0 ET Position: 24 Antony [facility]mel NP January 13, 2017 09:16
--- NOTE | 2017-01-13 09:34 | Diagnostic Imaging Report ---
Indications: Shortness of breath Technique: Portable AP chest Findings: Comparison: 01/12/17 Nasogastric tube has been placed, distal end in the region of the proximal aspect of the stomach. Endotracheal tube, left basal pleural drainage catheter remain in place. Left basal parenchymal and pleural opacities, loculated hydropneumothorax in the upper left hemithorax are unchanged. Mild rightward shift of cardiac mediastinal structures suggested. Patchy opacities appear to be developing in the right parahilar region. IMPRESSION: Multifocal left pleural and pulmonary parenchymal pathology, extensively documented and described, not significantly change from one day prior. Findings are compatible with multiloculated empyema with probable underlying pneumonia. Suggestion of mild tension component. Thoracic surgical consultation recommended. Developing right perihilar edema versus infiltrate Interval placement of nasogastric tube, in good position
[2017-01-13] MEDS ORDERED: Tubing IV Secondary IV ONE ×2 (10:22→18:59)
--- NOTE | 2017-01-13 10:31 | Brief Operative Note ---
Immediate Post Operative Note Operative Note Pre-op Diagnosis: Sepsis, respiratory failure, poor venous access Procedure: left subclavian triple lumen catheter placement Post-op Diagnosis: same Surgeon: Carmel Rich MD Anesthesia: local Specimen: none Complications: none Condition: stable Estimated Blood Loss: minimal Drains: none Implant(s) used?: Yes - triple lumen central venous catheter Travis Rich MD January 13, 2017 10:31
[2017-01-13] MEDS: Vancomycin 1 GM in D5W 275 ML IVPB SCH (10:40)
--- NOTE | 2017-01-13 10:49 | Diagnostic Imaging Report ---
Indications: Central venous catheter placement Technique: Portable AP chest at 1021 Findings: Comparison: 08 16 Central venous catheter has been placed via left subclavian vein, tip in region of superior vena cava. No new pneumothorax, apical pleural cap, or mediastinal widening. No other change. IMPRESSION: Placement of central venous catheter via left subclavian vein, in good position, no obvious acute complication No other change from 2 hours earlier
[2017-01-13 11:40] LABS: ABG PCO2 32.6 mmHg (35.0-45.0)
[2017-01-13 11:41] LABS: ABG BASE EXCESS -7.5
[2017-01-13 11:42] LABS: ABG ALLEN TEST POSITIVE
--- NOTE | 2017-01-13 13:55 | General Progress Note ---
Assessment/Plan Status: deteriorating Status Narrative now in ICU , intubated Assessment/Plan status; Now on Vent- Septic shock Acute renal failure- improved Dehydration- improving Hyperkalemia , due to above improved HypoNatremia due to above, improved Sz disorder Alcohol and drug abuse by history Anemia Empyema has chest drain Plan; hemodynamic support Avoid Nephrotoxics- Monitor lytes and renal parameters Sz percautions Thiamin- Anemia wheat Subjective ROS Limited/Unobtainable: Yes Allergies: Coded Allergies: No Known Allergies (Verified , 01/25/10) Objective Last 24 Hour Vital Signs Date Time Temp Pulse Resp B/P Pulse Ox O2 Delivery O2 Flow Rate FiO2 01/13/17 13:00 102 32 105/68 100 Mechanical Ventilator 100 01/13/17 12:30 102 32 88/57 100 Mechanical Ventilator 100 01/13/17 12:00 105 01/13/17 12:00 98.1 102 31 95/66 100 Mechanical Ventilator 100 01/13/17 11:30 107 35 92/68 100 Mechanical Ventilator 100 01/13/17 11:26 105 34 100 01/13/17 11:00 106 34 90/65 100 Mechanical Ventilator 100 01/13/17 10:30 109 34 126/88 100 Mechanical Ventilator 100 01/13/17 10:15 106 35 126/88 100 Mechanical Ventilator 100 01/13/17 10:00 107 32 104/67 98 Mechanical Ventilator 100 01/13/17 09:45 104 32 111/69 100 Mechanical Ventilator 100 01/13/17 09:30 106 32 92/61 98 Mechanical Ventilator 100 01/13/17 09:15 108 33 89/61 98 Mechanical Ventilator 100 01/13/17 09:05 103 37 100 01/13/17 09:00 109 32 103/64 100 Mechanical Ventilator 100 01/13/17 08:45 106 32 95/59 100 Mechanical Ventilator 100 01/13/17 08:30 107 34 86/56 98 Mechanical Ventilator 98 01/13/17 08:15 107 32 92/57 98 Mechanical Ventilator 100 01/13/17 08:04 77/50 01/13/17 08:00 97.8 106 32 84/50 98 Mechanical Ventilator 100 01/13/17 08:00 106 01/13/17 07:02 108 32 100 01/13/17 07:00 109 34 67/52 99 Mechanical Ventilator 100 01/13/17 06:09 98.8 5/20/17 06:00 98.8 113 34 86/35 99 Mechanical Ventilator 100 01/13/17 05:57 104 71/49 01/13/17 05:11 118 36 100 01/13/17 05:00 101.2 113 37 71/51 99 Mechanical Ventilator 100 01/13/17 04:00 120 01/13/17 04:00 100.8 120 33 90/50 96 Mechanical Ventilator 100 01/13/17 03:00 125 33 77/39 96 Mechanical Ventilator 100 01/13/17 02:52 126 36 100 01/13/17 02:00 125 34 150/86 99 Mechanical Ventilator 100 01/13/17 01:00 125 31 128/55 97 Mechanical Ventilator 100 01/13/17 00:44 128 38 100 01/13/17 00:00 121 01/13/17 00:00 100.2 126 31 98/68 97 Mechanical Ventilator 100 01/12/17 23:00 122 31 98/68 97 Mechanical Ventilator 100 01/12/17 22:54 121 36 100 01/12/17 22:00 121 33 73/54 96 Mechanical Ventilator 100 01/12/17 22:00 114 85/56 01/12/17 21:00 116 33 104/73 97 Mechanical Ventilator 100 01/12/17 20:58 113 36 100 01/12/17 20:00 108 34 110/65 97 Mechanical Ventilator 100 01/12/17 20:00 108 01/12/17 19:30 98.0 108 30 121/67 95 Mechanical Ventilator 100 01/12/17 19:17 107 22 100 01/12/17 16:10 129 01/12/17 15:57 101.6 122 25 98/65 98 Non-Rebreather 15.0 01/12/17 14:39 102.0 Intake and Output 01/12/17 01/13/17 19:00 07:00 Intake Total 650 ml 750 ml Output Total 750 ml 970 ml Balance -100 ml -220 ml Intake Oral 650 ml IV Total 750 ml Output Urine Total 700 ml 970 ml Drainage Total 50 ml # Bowel Movements 2 2 Laboratory Tests 01/12/17 20:20: Arterial Blood pH 7.210*L, Arterial Blood Partial Pressure CO2 57.3*H, Arterial Blood Partial Pressure O2 72.7L, Arterial Blood HCO3 22.9, Arterial Blood Oxygen Saturation 89.0L, Arterial Blood Base Excess -5.2, Flaquito Test Positive 01/13/17 03:40: White Blood Count 3.0L, Red Blood Count 3.50L, Hemoglobin 10.1L, Hematocrit 32.3L, Mean Corpuscular Volume 92, Mean Corpuscular Hemoglobin 28.7, Mean Corpuscular Hemoglobin Concent 31.1L, Red Cell Distribution Width 15.0H, Platelet Count 90L, Mean Platelet Volume 9.6, Neutrophils (%) (Auto) , Lymphocytes (%) (Auto) , Monocytes (%) (Auto) , Eosinophils (%) (Auto) , Basophils (%) (Auto) , Sodium Level 138, Potassium Level 4.5, Chloride Level 101 , Carbon Dioxide Level 21, Anion Gap 16H, Blood Urea Nitrogen 13, Creatinine 0.9 , Estimat Glomerular Filtration Rate > 60, Glucose Level 100, Calcium Level 7.6L , Magnesium Level 1.7, Prealbumin [Pending] 01/13/17 11:25: Arterial Blood pH 7.340L, Arterial Blood Partial Pressure CO2 32.6L, Arterial Blood Partial Pressure O2 92.8, Arterial Blood HCO3 17.4L, Arterial Blood Oxygen Saturation 96.6, Arterial Blood Base Excess -7.5, Flaquito Test Positive Height (Feet): 5 Height (Inches): 7.00 Weight (Pounds): 114 General Appearance: no apparent distress Cardiovascular: tachycardia Respiratory/Chest: decreased breath sounds Abdomen: distended Objective other PE not changed SHANNON GOODSON January 13, 2017 13:55
--- NOTE | 2017-01-13 17:31 | Operative Note - Dictated ---
DATE OF OPERATION: 01/13/2017 PREOPERATIVE DIAGNOSES: Poor venous access, respiratory failure, and left pleural effusion. POSTOPERATIVE DIAGNOSES: Poor venous access, respiratory failure, and left pleural effusion. PROCEDURE: Placement of left subclavian triple-lumen central venous catheter. SURGEON: Karen Rich M.D. ANESTHESIA: Local 1% Xylocaine. INDICATIONS FOR SURGERY: This 61-year-old male was admitted to the hospital with dehydration and some elements of acute tubular necrosis. He was found to have a large pleural effusion. He underwent placement of a left pleural drain. The patient was intubated and was found to be hypotensive. A request was made for placement of a triple-lumen catheter for administration of vasopressors. OPERATIVE TECHNIQUE: With the patient in the supine position, a rolled towel was placed beneath the shoulder blades to extend the neck. The left subclavian area and left side of the neck were prepped and draped in sterile fashion. The skin along the left subclavian area was infiltrated with 1% Xylocaine solution. A percutaneous stick was made entering the subclavian vein. A Seldinger wire was threaded through the needle and the needle was removed. The puncture site was dilated with an #11 blade scalpel and venous dilator. A triple-lumen central venous catheter was inserted over the wire and advanced to a distance of 18 centimeters without difficulty. The wire was pulled. Each catheter port was aspirated yielding venous return. Each catheter port was flushed with normal saline. The catheter was secured to the skin with 3-0 silk sutures. Sterile dressings were applied and chest x-ray was ordered. The patient tolerated the procedure well. Travis Rich M.D. DR: BAUTISTA JOB#: [id number] CC:
[2017-01-13] MEDS ORDERED: NS 275ml ONE (18:59)
[2017-01-14] VITALS (44 sets, daily range): BP systolic 87–143; BP diastolic 47–92
[2017-01-14 05:42] LABS: MEAN CORPUSCULAR HEMOGLOBIN 29.1 PG (27.0-31.0); MEAN CORPUSCULAR HGB CONC 31.8 G/DL (32.0-36.0); MEAN CORPUSCULAR VOLUME 92 FL (80-99); MEAN PLATELET VOLUME 7.5 FL (6.5-10.1); PLATELET COUNT 173 K/UL (150-450); RED BLOOD COUNT 3.06 M/UL (4.70-6.10); WHITE BLOOD COUNT 9.7 K/UL (4.8-10.8)
[2017-01-14] MEDS: Propranolol 10mg tab ORAL SCH ×3 (06:00→22:00)
[2017-01-14 06:52] LABS: ALANINE AMINOTRANSFERASE 40 U/L (3-41); ALBUMIN/GLOBULIN RATIO 0.4 (1.0-2.7); ANION GAP 16 (5-15); ASPARTATE AMINO TRANSFERASE 54 U/L (5-40); CALCIUM 7.3 mg/dL (8.6-10.2); CARBON DIOXIDE 19 mEQ/L (20-30); CHLORIDE 107 mEQ/L (98-107); CREATININE 1.1 mg/dL (0.7-1.2); GLOMERULAR FILTRATION RATE > 60 mL/min (>60); HEMOLYSIS 2; POTASSIUM 4.5 mEQ/L (3.4-4.9); SODIUM 142 mEQ/L (135-145); TOTAL PROTEIN 4.6 g/dL (6.6-8.7)
[2017-01-14 06:53] LABS: CRP QUANT 30.2 mg/dL (< 0.5); MAGNESIUM 1.6 mg/dL (1.7-2.5); URIC ACID 3.3 mg/dL (3.0-7.5)
[2017-01-14] MEDS: Thiamine 100mg tab ORAL SCH (08:11)
[2017-01-14] MEDS: KCl 10% 40mEq/30ml liquid NG SCH (08:11)
[2017-01-14] MEDS: Phospha 250 Neutral tab ORAL SCH ×3 (08:11→18:07)
[2017-01-14] MEDS: DOPamine 400mg/250ml 250 ML IV SCH (08:12)
[2017-01-14] MEDS: Cefepime HCl 1 GM in D5W 55 ML IV SCH ×2 (08:14→20:42)
[2017-01-14] MEDS: Dyna-Hex 2% Top Sol 8oz TOPIC SCH ×2 (08:15→12:44)
[2017-01-14 08:20] LABS: ABG ALLEN TEST POSITIVE; ABG BASE EXCESS -4.1
[2017-01-14 09:04] LABS: ANISOCYTOSIS 1+; BAND NEUTROPHILS % (MANUAL) 14 % (0-8); BASOPHILS % (MANUAL) 0 % (0-2); EOSINOPHILS % (MANUAL) 0 % (0-3); HYPOCHROMASIA 1+; LYMPHOCYTES % (MANUAL) 12 % (20-45); NEUTROPHILS % (MANUAL) 72 % (45-75); PLATELET ESTIMATE ADEQUATE; PLATELET MORPHOLOGY NORMAL; TOTAL CELLS COUNTED 100
--- NOTE | 2017-01-14 09:07 | Infectious Diseases Prog Note ---
Assessment/Plan Assessment/Plan A: Septic shock Empyema Acute respiratory failure Anemia Acidosis P: continue Vancomycin & Cefepime Subjective ROS Limited/Unobtainable: Yes Allergies: Coded Allergies: No Known Allergies (Verified , 01/25/10) Objective Vital Signs Last 24 Hour Vital Signs Date Time Temp Pulse Resp B/P Pulse Ox O2 Delivery O2 Flow Rate FiO2 01/14/17 08:30 129 38 108/67 100 Mechanical Ventilator 60 01/14/17 08:12 101/64 01/14/17 08:00 98.9 130 40 106/60 100 Mechanical Ventilator 60 01/14/17 08:00 60 01/14/17 07:33 122 35 103/64 100 Mechanical Ventilator 60 01/14/17 07:10 127 40 60 01/14/17 07:00 128 30 121/70 100 Mechanical Ventilator 60 01/14/17 06:30 122 35 103/64 100 Mechanical Ventilator 60 01/14/17 06:00 127 97/57 01/14/17 06:00 120 35 100/59 100 Mechanical Ventilator 60 01/14/17 05:44 128 43 60 01/14/17 05:30 126 35 92/59 100 Mechanical Ventilator 60 01/14/17 05:00 129 35 92/58 98 Mechanical Ventilator 60 01/14/17 04:30 126 33 106/76 97 Mechanical Ventilator 60 01/14/17 04:00 126 01/14/17 04:00 60 01/14/17 04:00 98.0 126 35 101/81 100 Mechanical Ventilator 60 01/14/17 03:30 119 37 96/57 100 Mechanical Ventilator 60 01/14/17 03:01 120 37 60 01/14/17 03:00 120 38 93/59 100 Mechanical Ventilator 60 01/14/17 02:30 122 38 101/47 100 Mechanical Ventilator 60 01/14/17 02:00 117 38 105/60 100 Mechanical Ventilator 60 01/14/17 01:30 117 39 113/64 100 Mechanical Ventilator 60 01/14/17 01:00 116 32 96/65 100 Mechanical Ventilator 60 01/14/17 00:42 117 41 60 01/14/17 00:30 114 37 99/54 100 Mechanical Ventilator 60 01/14/17 00:00 98.4 113 36 109/76 100 Mechanical Ventilator 60 01/14/17 00:00 113 5/21/17 00:00 60 5/20/17 23:03 119 42 60 5/20/17 23:00 115 32 103/57 100 Mechanical Ventilator 60 5/20/17 22:30 118 36 81/51 100 Mechanical Ventilator 70 5/20/17 22:00 117 35 102/51 100 Mechanical Ventilator 70 5/20/17 22:00 117 98/57 5/20/17 21:30 117 35 99/53 100 Mechanical Ventilator 70 5/20/17 21:06 115 37 60 5/20/17 21:00 116 36 101/74 100 Mechanical Ventilator 70 5/20/17 20:30 115 36 83/56 100 Mechanical Ventilator 70 5/20/17 20:00 98.0 116 37 95/57 100 Mechanical Ventilator 70 5/20/17 20:00 117 5/20/17 19:10 115 38 60 5/20/17 19:02 98.0 5/20/17 19:00 119 45 83/52 100 Mechanical Ventilator 70 5/20/17 18:30 116 39 87/57 100 Mechanical Ventilator 70 520/17 18:00 122 40 98/58 98 Mechanical Ventilator 70 520/17 17:30 120 42 110/62 99 Mechanical Ventilator 70 5/20/17 17:16 70 5/20/17 17:05 119 40 70 5/20/17 17:00 119 34 114/63 100 Mechanical Ventilator 100 520/17 16:30 113 35 88/56 100 Mechanical Ventilator 100 5/20/17 16:00 11 520/17 16:00 100 5/20/17 16:00 98.0 112 34 98/65 100 Mechanical Ventilator 100 520/17 15:30 114 40 99/61 100 Mechanical Ventilator 100 5/20/17 15:00 115 35 104/66 100 Mechanical Ventilator 100 5/20/17 14:55 114 37 70 5/20/17 14:30 109 34 106/72 100 Mechanical Ventilator 100 5/20/17 14:00 108 31 118/72 100 Mechanical Ventilator 100 5/20/17 13:54 109 92/65 5/20/17 13:30 106 34 114/71 100 Mechanical Ventilator 100 5/20/17 13:27 108 35 100 5/20/17 13:00 102 32 105/68 100 Mechanical Ventilator 100 5/20/17 12:30 102 32 88/57 100 Mechanical Ventilator 100 5/20/17 12:00 105 01/13/17 12:00 98.1 102 31 95/66 100 Mechanical Ventilator 100 01/13/17 12:00 100 01/13/17 11:30 107 35 92/68 100 Mechanical Ventilator 100 01/13/17 11:26 105 34 100 01/13/17 11:00 106 34 90/65 100 Mechanical Ventilator 100 01/13/17 10:30 109 34 126/88 100 Mechanical Ventilator 100 01/13/17 10:15 106 35 126/88 100 Mechanical Ventilator 100 01/13/17 10:00 107 32 104/67 98 Mechanical Ventilator 100 01/13/17 09:45 104 32 111/69 100 Mechanical Ventilator 100 01/13/17 09:30 106 32 92/61 98 Mechanical Ventilator 100 01/13/17 09:15 108 33 89/61 98 Mechanical Ventilator 100 01/13/17 09:05 103 37 100 Height (Feet): 5 Height (Inches): 7.00 Weight (Pounds): 157 HEENT: other - orally intubated Respiratory/Chest: respiratory distress, rhonchi - bilaterally, other - on ventilator, left chest drain Cardiovascular: tachycardia, other - left subclvian central line Abdomen: soft, non tender, other - NG tube Neurologic/Psychiatric: alert Laboratory Tests Test 01/13/17 11:25 01/13/17 20:20 01/14/17 04:00 01/14/17 08:14 Arterial Blood pH 7.340 (7.350-7.450) 7.439 (7.350-7.450) Arterial Blood Partial Pressure CO2 32.6 mmHg (35.0-45.0) L 29.0 mmHg (35.0-45.0) L Arterial Blood Partial Pressure O2 92.8 mmHg (75.0-100.0) 112.2 mmHg (75.0-100.0) H Arterial Blood HCO3 17.4 mmol/L (22.0-26.0) L 19.2 mmol/L (22.0-26.0) L Arterial Blood Oxygen Saturation 96.6 % (92.0-98.0) 98.2 % (92.0-98.0) H Arterial Blood Base Excess -7.5 -4.1 Flaquito Test Positive Positive Vancomycin Level Trough 22.1 ug/mL (5.0-12.0) H White Blood Count 9.7 K/UL (4.8-10.8) # Red Blood Count 3.06 M/UL (4.70-6.10) L Hemoglobin 8.9 G/DL (14.2-18.0) L Hematocrit 28.0 % (42.0-52.0) L Mean Corpuscular Volume 92 FL (80-99) Mean Corpuscular Hemoglobin 29.1 PG (27.0-31.0) Mean Corpuscular Hemoglobin Concent 31.8 G/DL (32.0-36.0) L Red Cell Distribution Width 15.0 % (11.6-14.8) H Platelet Count 173 K/UL (150-450) # Mean Platelet Volume 7.5 FL (6.5-10.1) Neutrophils (%) (Auto) % (45.0-75.0) Lymphocytes (%) (Auto) % (20.0-45.0) Monocytes (%) (Auto) % (1.0-10.0) Eosinophils (%) (Auto) % (0.0-3.0) Basophils (%) (Auto) % (0.0-2.0) Neutrophils % (Manual) Pending Lymphocytes % (Manual) Pending Platelet Estimate Pending Platelet Morphology Pending Sodium Level 142 mEQ/L (135-145) Potassium Level 4.5 mEQ/L (3.4-4.9) Chloride Level 107 mEQ/L (98-107) Carbon Dioxide Level 19 mEQ/L (20-30) L Anion Gap 16 (5-15) H Blood Urea Nitrogen 19 mg/dL (7-23) Creatinine 1.1 mg/dL (0.7-1.2) Estimat Glomerular Filtration Rate > 60 mL/min (>60) Glucose Level 91 mg/dL (74-106) Uric Acid 3.3 mg/dL (3.0-7.5) Calcium Level 7.3 mg/dL (8.6-10.2) L Phosphorus Level 3.0 mg/dL (2.5-4.8) Magnesium Level 1.6 mg/dL (1.7-2.5) L Total Bilirubin 0.3 mg/dL (0.0-1.2) Gamma Glutamyl Transpeptidase 19 U/L (8-61) Aspartate Amino Transf (AST/SGOT) 54 U/L (5-40) H Alanine Aminotransferase (ALT/SGPT) 40 U/L (3-41) Alkaline Phosphatase 78 U/L (40-129) Total Creatine Kinase 78 U/L (38-174) C-Reactive Protein, Quantitative 30.2 mg/dL (< 0.5) H Pro-B-Type Natriuretic Peptide 96961 pg/mL (0-125) H Total Protein 4.6 g/dL (6.6-8.7) L Albumin 1.4 g/dL (3.5-5.2) L Globulin 3.2 g/dL Albumin/Globulin Ratio 0.4 (1.0-2.7) L Thyroid Stimulating Hormone (TSH) 0.720 uIU/mL (0.300-4.500) Current Medications Medications (Trade) Dose Ordered Sig/Abbi Route PRN Reason Start Time Stop Time Status Last Admin Dose Admin Acetaminophen (Tylenol) 650 mg Q4H PRN ORAL T>100.5 01/12/17 20:30 02/11/17 20:29 01/13/17 17:48 Albuterol/ Ipratropium (DuoNeb 0.5-3(2.5)mg/3ml) 3 ml Q4H PRN HHN Shortness of Breath 01/12/17 20:30 01/17/17 20:29 Cefepime HCl 1 gm/ Dextrose 55 ml @ 110 mls/hr Q12HR IV 01/12/17 21:00 01/19/17 20:59 01/14/17 08:14 Chlorhexidine Gluconate (Akte-Hex 2%) 1 applic DAILY TOPIC 01/13/17 09:00 02/12/17 08:59 01/14/17 08:15 Dopamine HCl/ Dextrose (DOPamine 400mg/ 250ml) 250 ml @ 0 mls/hr Q24H IV 01/13/17 08:00 02/12/17 07:59 01/14/17 08:12 Lorazepam (Ativan 2mg/ml 1ml) 2 mg Q2H PRN IV For Anxiety 01/12/17 21:15 01/19/17 21:14 01/13/17 22:30 Morphine Sulfate 4 mg 4 mg Q4H PRN IVP For Pain 01/12/17 21:15 01/19/17 21:14 01/12/17 23:47 Nitroglycerin (Ntg) 0.4 mg Q5M PRN SL Prn Chest Pain 01/12/17 20:05 02/11/17 20:04 Ondansetron HCl (Zofran) 4 mg Q6H PRN IVP Nausea & Vomiting 01/12/17 20:30 02/11/17 20:29 Pantoprazole (Protonix) 40 mg ACBREAKFAST ORAL 01/13/17 06:30 02/12/17 06:29 01/14/17 06:09 Phosphorus (Phospha 250 Neutral) 250 mg THREE TIMES A DAY ORAL 01/13/17 09:00 02/12/17 08:59 01/14/17 08:11 Polyethylene Glycol (Miralax) 17 gm DAILYPRN PRN ORAL Constipation 01/12/17 20:30 02/11/17 20:29 Potassium Chloride (KCl 10% 40mEq Oral solution) 40 meq DAILY NG 01/13/17 09:00 02/12/17 08:59 01/14/17 08:11 Promethazine HCl/ Codeine (Phenergan with Codeine) 5 ml Q4H PRN ORAL For Cough 01/12/17 20:30 02/11/17 20:29 Propranolol HCl (Inderal) 10 mg Q8HR ORAL 01/12/17 22:00 02/11/17 21:59 Sodium Chloride (Sodium Chloride 1000ml bag) 1,000 ml @ 75 mls/hr [id number] IV 01/12/17 20:30 02/11/17 20:29 01/13/17 21:02 Temazepam (Restoril) 15 mg HSPRN PRN ORAL Insomnia 01/12/17 21:00 01/19/17 20:59 Thiamine HCl (Vitamin B1) 100 mg DAILY ORAL 01/13/17 09:00 02/12/17 08:59 01/14/17 08:11 Vancomycin HCl (Vanco rx to dose) 1 ea DAILY PRN MISC Per rx protocol 01/13/17 09:00 02/12/17 08:59 EDMUND ROGER January 14, 2017 09:07
--- NOTE | 2017-01-14 09:07 | Pulmonolgy Critical Care Note ---
Critical Care - Asmt/Plan Assessment/Plan: ASSESSMENT acute hypoxemic respiratory failure requiring intubation septic shock sepsis empyema large left multiloculated pleural effusion s/p thoracenteses 01/08- 1160cc left loculated PNT ( 2 to tap, iatrogenic) trapped left lung s/p insertion of CT 01/10 probable PNA anemia/ UKRTIS ARF/ATN -resolved transaminitis DM seizure disorder hx of ETOH abuse DM protein calorie malnutrition thrombocytopenia noncompliance homeless hypo Mg PLAN OF CARE ICU Dopamine gtt continue , titrate to keep SBP above 90 vent care, titrate Fio2, TV, AC prn ABG stable this am pulmonary toilet daily CXR and ABG IVF initial CXR with loculated TERENCE pleural effusion CT chest revealed multiloculated large left pleural effusion s/p tap-1160 cc CXR post-tap with L loculated PNT, no tension component, s/p insertion of CT 01/10 by radiology CXR re -demonstrates persistent left pleural effusion daily CXR while CT in declined thoracoscopy (CT surgeon spoke with patient ) abx, ID follows sputum and blood cx negative pleural fluid cx + Strep alpha hemolytic BS management with SS of insulin, [id number] seizure precautions, not on any antiepileptic medications, ? r/t hx of ETOH abuse urine tox screen + marijuana, serum ETOH level-13 HIV test negative monitor HH, iron panel with low iron, LFT down to normal Mg -1,6, replace continue Thiamine prior was counseled on abstinence from ETOH and street drugs ( when was alert) prealbumin pending dietary eval PT/OT bowel regimen DVT, GI prophylaxis PLT up to normal, will restart Heparin , closely monitor PLT count, if trend down again, will dc Heparin venous Duplex and SCD ( if negative Venous) HH with trend down ,low iron, high ferritin, get stool OB and check CEA case discussed and evaluated by supervising physician Critical Care - Objective Last 24 Hour Vital Signs Date Time Temp Pulse Resp B/P Pulse Ox O2 Delivery O2 Flow Rate FiO2 01/14/17 08:30 129 38 108/67 100 Mechanical Ventilator 60 01/14/17 08:12 101/64 01/14/17 08:00 98.9 130 40 106/60 100 Mechanical Ventilator 60 01/14/17 08:00 60 01/14/17 07:33 122 35 103/64 100 Mechanical Ventilator 60 01/14/17 07:10 127 40 60 5/21/17 07:00 128 30 121/70 100 Mechanical Ventilator 60 01/14/17 06:30 122 35 103/64 100 Mechanical Ventilator 60 01/14/17 06:00 127 97/57 01/14/17 06:00 120 35 100/59 100 Mechanical Ventilator 60 01/14/17 05:44 128 43 60 01/14/17 05:30 126 35 92/59 100 Mechanical Ventilator 60 01/14/17 05:00 129 35 92/58 98 Mechanical Ventilator 60 01/14/17 04:30 126 33 106/76 97 Mechanical Ventilator 60 01/14/17 04:00 126 01/14/17 04:00 60 01/14/17 04:00 98.0 126 35 101/81 100 Mechanical Ventilator 60 01/14/17 03:30 119 37 96/57 100 Mechanical Ventilator 60 01/14/17 03:01 120 37 60 01/14/17 03:00 120 38 93/59 100 Mechanical Ventilator 60 01/14/17 02:30 122 38 101/47 100 Mechanical Ventilator 60 01/14/17 02:00 117 38 105/60 100 Mechanical Ventilator 60 01/14/17 01:30 117 39 113/64 100 Mechanical Ventilator 60 01/14/17 01:00 116 32 96/65 100 Mechanical Ventilator 60 01/14/17 00:42 117 41 60 01/14/17 00:30 114 37 99/54 100 Mechanical Ventilator 60 01/14/17 00:00 98.4 113 36 109/76 100 Mechanical Ventilator 60 01/14/17 00:00 113 01/14/17 00:00 60 01/13/17 23:03 119 42 60 01/13/17 23:00 115 32 103/57 100 Mechanical Ventilator 60 01/13/17 22:30 118 36 81/51 100 Mechanical Ventilator 70 01/13/17 22:00 117 35 102/51 100 Mechanical Ventilator 70 01/13/17 22:00 117 98/57 01/13/17 21:30 117 35 99/53 100 Mechanical Ventilator 70 01/13/17 21:06 115 37 60 01/13/17 21:00 116 36 101/74 100 Mechanical Ventilator 70 01/13/17 20:30 115 36 83/56 100 Mechanical Ventilator 70 01/13/17 20:00 98.0 116 37 95/57 100 Mechanical Ventilator 70 5/20/17 20:00 117 5/20/17 19:10 115 38 60 5/20/17 19:02 98.0 5/20/17 19:00 119 45 83/52 100 Mechanical Ventilator 70 5/20/17 18:30 116 39 87/57 100 Mechanical Ventilator 70 5/20/17 18:00 122 40 98/58 98 Mechanical Ventilator 70 520/17 17:30 120 42 110/62 99 Mechanical Ventilator 70 520/17 17:16 70 5/20/17 17:05 119 40 70 5/20/17 17:00 119 34 114/63 100 Mechanical Ventilator 100 520/17 16:30 113 35 88/56 100 Mechanical Ventilator 100 20/17 16:00 11 20/17 16:00 100 20/17 16:00 98.0 112 34 98/65 100 Mechanical Ventilator 100 20/17 15:30 114 40 99/61 100 Mechanical Ventilator 100 01/13/17 15:00 115 35 104/66 100 Mechanical Ventilator 100 20/17 14:55 114 37 70 520/17 14:30 109 34 106/72 100 Mechanical Ventilator 100 20/17 14:00 108 31 118/72 100 Mechanical Ventilator 100 20/17 13:54 109 92/65 01/13/17 13:30 106 34 114/71 100 Mechanical Ventilator 100 20/17 13:27 108 35 100 20/17 13:00 102 32 105/68 100 Mechanical Ventilator 100 20/17 12:30 102 32 88/57 100 Mechanical Ventilator 100 20/17 12:00 105 520/17 12:00 98.1 102 31 95/66 100 Mechanical Ventilator 100 520/17 12:00 100 520/17 11:30 107 35 92/68 100 Mechanical Ventilator 100 520/17 11:26 105 34 100 5/20/17 11:00 106 34 90/65 100 Mechanical Ventilator 100 520/17 10:30 109 34 126/88 100 Mechanical Ventilator 100 5/20/17 10:15 106 35 126/88 100 Mechanical Ventilator 100 520/17 10:00 107 32 104/67 98 Mechanical Ventilator 100 520/17 09:45 104 32 111/69 100 Mechanical Ventilator 100 520/17 09:30 106 32 92/61 98 Mechanical Ventilator 100 01/13/17 09:15 108 33 89/61 98 Mechanical Ventilator 100 01/13/17 09:05 103 37 100 Objective: Status: intubated, open eyes spontaneously, poorly but responsive Condition: critical HEENT: atraumatic, normocephalic, OP with ET in place, intact, NGT intact Neck: left subclavian CL intact Lungs: decreased BS on the left, Left thoracic vent with drainage Heart: HR/BP unstable - hypotensive Abdomen: soft, non-tender, active bowel sounds Extremities: trace edema BLE Critical Care - Subjective ROS Limited/Unobtainable: Yes Interval Events: more awake still on Dopamine drip, tachycardic ABG stable, no leukocytosis,afebrile thoracic vent -20 cc output Condition: critical IV Access: central - Left subclavian CL intact EKG Rhythm: Sinus Tachycardia FI02: 60 Vent Support Breath Rate: 14 Vent Support Mode: AC Vent Tidal Volume: 550 Sputum Amount: Small PEEP: 5.0 PIP: 40 Fluids: NS at 75 Drips: dopamine 4 mcg/kg/min I&O: Intake and Output 01/13/17 01/14/17 19:00 07:00 Intake Total 1223.48 ml 990.0 ml Output Total 385 ml 610 ml Balance 838.48 ml 380.0 ml IV Total 1223.48 ml 990.0 ml Output Urine Total 310 ml 590 ml Drainage Total 20 ml Other 75 ml # Bowel Movements 3 2 CXR: Central venous catheter has been placed via left subclavian vein, tip in region of superior vena cava. No new pneumothorax, apical pleural cap, or mediastinal widening. No other change. ET-Tube: 8.0 ET Position: 24 Meagan Hardy NP ([place]) January 14, 2017 09:07
[2017-01-14] MEDS: LORazepam Inj 2mg/ml 1ml IV PRN ×2 (10:15→20:42)
--- NOTE | 2017-01-14 10:54 | General Progress Note ---
Assessment/Plan Status: stable - from renal stand, unchanged - from pulmonary stand Status Narrative resp failure and low BP Assessment/Plan status; Now on Vent- Septic shock Acute renal failure- improved Dehydration- improving Hyperkalemia , due to above improved HypoNatremia due to above, improved Sz disorder Alcohol and drug abuse by history Anemia Empyema has chest drain Plan; whipple hemodynamic support Avoid Nephrotoxics- Monitor lytes and renal parameters Sz percautions Thiamin- Anemia wheat Subjective ROS Limited/Unobtainable: Yes Allergies: Coded Allergies: No Known Allergies (Verified , 01/25/10) Objective Last 24 Hour Vital Signs Date Time Temp Pulse Resp B/P Pulse Ox O2 Delivery O2 Flow Rate FiO2 01/14/17 10:00 132 45 94/67 99 Mechanical Ventilator 50 01/14/17 10:00 94/67 01/14/17 09:30 133 40 102/58 100 Mechanical Ventilator 50 01/14/17 09:10 137 40 50 01/14/17 09:00 136 40 104/77 100 Mechanical Ventilator 60 01/14/17 09:00 104/77 01/14/17 08:30 129 38 108/67 100 Mechanical Ventilator 60 01/14/17 08:12 101/64 01/14/17 08:00 125 01/14/17 08:00 98.9 130 40 106/60 100 Mechanical Ventilator 60 01/14/17 08:00 60 01/14/17 07:33 122 35 103/64 100 Mechanical Ventilator 60 01/14/17 07:10 127 40 60 01/14/17 07:00 128 30 121/70 100 Mechanical Ventilator 60 01/14/17 06:30 122 35 103/64 100 Mechanical Ventilator 60 01/14/17 06:00 127 97/57 01/14/17 06:00 120 35 100/59 100 Mechanical Ventilator 60 01/14/17 05:44 128 43 60 01/14/17 05:30 126 35 92/59 100 Mechanical Ventilator 60 01/14/17 05:00 129 35 92/58 98 Mechanical Ventilator 60 01/14/17 04:30 126 33 106/76 97 Mechanical Ventilator 60 01/14/17 04:00 126 01/14/17 04:00 60 01/14/17 04:00 98.0 126 35 101/81 100 Mechanical Ventilator 60 01/14/17 03:30 119 37 96/57 100 Mechanical Ventilator 60 01/14/17 03:01 120 37 60 01/14/17 03:00 120 38 93/59 100 Mechanical Ventilator 60 01/14/17 02:30 122 38 101/47 100 Mechanical Ventilator 60 01/14/17 02:00 117 38 105/60 100 Mechanical Ventilator 60 01/14/17 01:30 117 39 113/64 100 Mechanical Ventilator 60 01/14/17 01:00 116 32 96/65 100 Mechanical Ventilator 60 01/14/17 00:42 117 41 60 01/14/17 00:30 114 37 99/54 100 Mechanical Ventilator 60 01/14/17 00:00 98.4 113 36 109/76 100 Mechanical Ventilator 60 01/14/17 00:00 113 01/14/17 00:00 60 01/13/17 23:03 119 42 60 01/13/17 23:00 115 32 103/57 100 Mechanical Ventilator 60 01/13/17 22:30 118 36 81/51 100 Mechanical Ventilator 70 01/13/17 22:00 117 35 102/51 100 Mechanical Ventilator 70 01/13/17 22:00 117 98/57 01/13/ 21:30 117 35 99/53 100 Mechanical Ventilator 70 20/17 21:06 115 37 60 20/17 21:00 116 36 101/74 100 Mechanical Ventilator 70 01/13/17 20:30 115 36 83/56 100 Mechanical Ventilator 70 20/17 20:00 98.0 116 37 95/57 100 Mechanical Ventilator 70 20/17 20:00 117 20/17 19:10 115 38 60 01/13/17 19:02 98.0 20/17 19:00 119 45 83/52 100 Mechanical Ventilator 70 520/17 18:30 116 39 87/57 100 Mechanical Ventilator 70 520/17 18:00 122 40 98/58 98 Mechanical Ventilator 70 20/17 17:30 120 42 110/62 99 Mechanical Ventilator 70 520/17 17:16 70 520/17 17:05 119 40 70 5/20/17 17:00 119 34 114/63 100 Mechanical Ventilator 100 5/20/17 16:30 113 35 88/56 100 Mechanical Ventilator 100 520/17 16:00 11 520/17 16:00 100 20/17 16:00 98.0 112 34 98/65 100 Mechanical Ventilator 100 01/13/17 15:30 114 40 99/61 100 Mechanical Ventilator 100 01/13/17 15:00 115 35 104/66 100 Mechanical Ventilator 100 01/13/17 14:55 114 37 70 01/13/17 14:30 109 34 106/72 100 Mechanical Ventilator 100 01/13/17 14:00 108 31 118/72 100 Mechanical Ventilator 100 01/13/17 13:54 109 92/65 01/13/17 13:30 106 34 114/71 100 Mechanical Ventilator 100 01/13/17 13:27 108 35 100 01/13/17 13:00 102 32 105/68 100 Mechanical Ventilator 100 01/13/17 12:30 102 32 88/57 100 Mechanical Ventilator 100 01/13/17 12:00 105 01/13/17 12:00 98.1 102 31 95/66 100 Mechanical Ventilator 100 01/13/17 12:00 100 01/13/17 11:30 107 35 92/68 100 Mechanical Ventilator 100 01/13/17 11:26 105 34 100 01/13/17 11:00 106 34 90/65 100 Mechanical Ventilator 100 Intake and Output 01/13/17 01/14/17 19:00 07:00 Intake Total 1223.48 ml 990.0 ml Output Total 385 ml 610 ml Balance 838.48 ml 380.0 ml IV Total 1223.48 ml 990.0 ml Output Urine Total 310 ml 590 ml Drainage Total 20 ml Other 75 ml # Bowel Movements 3 2 Laboratory Tests 01/13/17 11:25: Arterial Blood pH 7.340L, Arterial Blood Partial Pressure CO2 32.6L, Arterial Blood Partial Pressure O2 92.8, Arterial Blood HCO3 17.4L, Arterial Blood Oxygen Saturation 96.6, Arterial Blood Base Excess -7.5, Flaquito Test Positive 01/13/17 20:20: Vancomycin Level Trough 22.1H 01/14/17 04:00: White Blood Count 9.7#, Red Blood Count 3.06L, Hemoglobin 8.9L, Hematocrit 28.0L , Mean Corpuscular Volume 92, Mean Corpuscular Hemoglobin 29.1, Mean Corpuscular Hemoglobin Concent 31.8L, Red Cell Distribution Width 15.0H, Platelet Count 173#, Mean Platelet Volume 7.5, Neutrophils (%) (Auto) , Lymphocytes (%) (Auto) , Monocytes (%) (Auto) , Eosinophils (%) (Auto) , Basophils (%) (Auto) , Differential Total Cells Counted 100, Neutrophils % ( Manual) 72, Lymphocytes % (Manual) 12L, Monocytes % (Manual) 2, Eosinophils % ( Manual) 0, Basophils % (Manual) 0, Band Neutrophils 14H, Platelet Estimate Adequate, Platelet Morphology Normal, Hypochromasia 1+, Anisocytosis 1+, Sodium Level 142, Potassium Level 4.5, Chloride Level 107, Carbon Dioxide Level 19L, Anion Gap 16H, Blood Urea Nitrogen 19, Creatinine 1.1, Estimat Glomerular Filtration Rate > 60, Glucose Level 91, Uric Acid 3.3, Calcium Level 7.3L, Phosphorus Level 3.0, Magnesium Level 1.6L, Total Bilirubin 0.3, Gamma Glutamyl Transpeptidase 19, Aspartate Amino Transf (AST/SGOT) 54H, Alanine Aminotransferase (ALT/SGPT) 40, Alkaline Phosphatase 78, Total Creatine Kinase 78, C-Reactive Protein, Quantitative 30.2H, Pro-B-Type Natriuretic Peptide 52204C, Total Protein 4.6L, Albumin 1.4L, Globulin 3.2, Albumin/Globulin Ratio 0.4L, Thyroid Stimulating Hormone (TSH) 0.720 01/14/17 08:14: Arterial Blood pH 7.439, Arterial Blood Partial Pressure CO2 29.0L, Arterial Blood Partial Pressure O2 112.2H, Arterial Blood HCO3 19.2L, Arterial Blood Oxygen Saturation 98.2H, Arterial Blood Base Excess -4.1, Flaquito Test Positive Height (Feet): 5 Height (Inches): 7.00 Weight (Pounds): 157 General Appearance: mild distress EENT: other - on vent Cardiovascular: tachycardia Respiratory/Chest: decreased breath sounds Abdomen: distended Objective other PE not changed SHANNON GOODSON January 14, 2017 10:54
--- NOTE | 2017-01-14 15:01 | General Progress Note ---
Progress Note Progress Note Pt remains on ventilator support, no problems noted with central line. CXR was reviewed with the radiologist yesterday. Pt will need a thoracic surgery evaluation for a possible thoracoscopy and decortication of his left lung. Travis Rich MD January 14, 2017 15:01
[2017-01-14] MEDS ORDERED: Tubing IV Secondary IV ONE (17:23)
[2017-01-14] MEDS: Heparin 5000 units/ml inj SUBQ SCH (20:44)
[2017-01-14] MEDS: Vancomycin 1250mg/D5W 275ml IVPB SCH ×2 (23:26)
[2017-01-15] VITALS (24 sets, daily range): BP systolic 10–123; BP diastolic 40–83
[2017-01-15] MEDS: Propranolol 10mg tab ORAL SCH ×3 (05:43→21:35)
[2017-01-15] MEDS: Dyna-Hex 2% Top Sol 8oz TOPIC SCH (05:45)
[2017-01-15 05:47] LABS: BASOPHILS % (AUTO) 0.3 % (0.0-2.0); EOSINOPHILS % (AUTO) 0.7 % (0.0-3.0); LYMPHOCYTES % (AUTO) 9.5 % (20.0-45.0); MEAN CORPUSCULAR HEMOGLOBIN 29.4 PG (27.0-31.0); MEAN CORPUSCULAR HGB CONC 32.8 G/DL (32.0-36.0); MEAN CORPUSCULAR VOLUME 89 FL (80-99); MONOCYTES % (AUTO) 7.5 % (1.0-10.0); PLATELET COUNT 224 K/UL (150-450); RED BLOOD COUNT 2.84 M/UL (4.70-6.10); RED CELL DISTRIBUTION WIDTH 14.9 % (11.6-14.8); WHITE BLOOD COUNT 9.3 K/UL (4.8-10.8)
[2017-01-15 05:57] LABS: ANION GAP 14 (5-15); CALCIUM 7.3 mg/dL (8.6-10.2); CARBON DIOXIDE 21 mEQ/L (20-30); CHLORIDE 108 mEQ/L (98-107); CREATININE 0.9 mg/dL (0.7-1.2); GLOMERULAR FILTRATION RATE > 60 mL/min (>60); HEMOLYSIS 2; MAGNESIUM 2.1 mg/dL (1.7-2.5); SODIUM 143 mEQ/L (135-145)
[2017-01-15 07:11] LABS: ABG PCO2 34.3 mmHg (35.0-45.0)
[2017-01-15 07:12] LABS: ABG ALLEN TEST POSITIVE; ABG BASE EXCESS -4.3
[2017-01-15] MEDS: DOPamine 400mg/250ml 250 ML IV SCH (08:00)
--- NOTE | 2017-01-15 08:34 | Diagnostic Imaging Report ---
Indications: Shortness of breath Technique: Portable AP chest Findings: Comparison: 01/13/2017 Increase in patchy airspace opacities bilaterally. Left upper loculated hydropneumothorax, left basal pleural effusion with drainage catheter persists, unchanged. Cardiomediastinal silhouette stable. Lines and tubes remain in place. IMPRESSION: Progression of bilateral airspace opacities--edema versus pneumonia No other change from one day prior
[2017-01-15] MEDS: LORazepam Inj 2mg/ml 1ml IV PRN ×2 (08:57→14:42)
[2017-01-15] MEDS: Heparin 5000 units/ml inj SUBQ SCH ×2 (08:58→21:33)
[2017-01-15] MEDS: Phospha 250 Neutral tab ORAL SCH ×3 (08:59→17:45)
[2017-01-15] MEDS: Thiamine 100mg tab ORAL SCH (08:59)
[2017-01-15] MEDS: KCl 10% 40mEq/30ml liquid NG SCH (08:59)
[2017-01-15] MEDS: Cefepime HCl 1 GM in D5W 55 ML IV SCH ×2 (09:00→21:32)
--- NOTE | 2017-01-15 10:03 | Diagnostic Imaging Report ---
Indication: SOB Technique: One view of the chest Comparison: 01/14/2017 Findings: Large left upper lobe air and fluid lesion is unchanged. Extensive bilateral masslike opacities are again demonstrated. There may be some airspace consolidation in the perihilar regions bilaterally, as well, progressed slightly increased from the prior study.. Endotracheal tube, nasogastric tube, left subclavian central venous catheter remain. Heart size is normal. Pigtail drainage catheter at the left lung base is again demonstrated. Degenerative changes of the right shoulder are again demonstrated Impression: Equivocally slightly increased airspace opacity in the bilateral perihilar regions. Otherwise, little coverer one day, findings as described
--- NOTE | 2017-01-15 10:26 | Pulmonolgy Critical Care Note ---
Critical Care - Asmt/Plan Problems: (1) Acute respiratory failure (2) Empyema (3) Altered level of consciousness (4) Sepsis (5) Severe anemia Respiratory: monitor respiratory rate, adjust FIO2, CXR Cardiac: continue to monitor HR/BP Renal: F/U I&O, keep IV fluid Infectious Disease: check cultures, continue antibiotics Gastrointestinal: hold feedings Endocrine: monitor blood sugar, check TSH, check HgA1C, continue sliding scale insulin Hematologic: monitor H/H, transfuse if hgb<8.5 Neurologic: PRN Ativan, keep patient comfortable Affect: PRN ativan Prophylaxis: Protonix Time Spent (Minutes): 40 Notes Reviewed: renal Discussed with: nurses, consultants, 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 - Objective Last 24 Hour Vital Signs Date Time Temp Pulse Resp B/P Pulse Ox O2 Delivery O2 Flow Rate FiO2 01/15/17 10:00 112 35 101/56 100 Mechanical Ventilator 50 01/15/17 09:00 116 30 92/60 100 Mechanical Ventilator 50 01/15/17 08:59 110 31 40 01/15/17 08:00 98.5 117 36 118/60 100 Mechanical Ventilator 50 01/15/17 08:00 117 01/15/17 08:00 118/60 01/15/17 08:00 50 01/15/17 07:00 113 35 106/69 100 Mechanical Ventilator 50 01/15/17 06:54 112 26 50 01/15/17 06:00 112 34 123/83 100 Mechanical Ventilator 50 01/15/17 05:43 106 85/50 01/15/17 05:00 105 34 104/70 100 Mechanical Ventilator 50 01/15/17 05:00 100 33 50 01/15/17 04:00 101 01/15/17 04:00 50 01/15/17 04:00 98.4 101 33 101/60 100 Mechanical Ventilator 50 01/15/17 03:05 101 34 50 01/15/17 03:00 101 33 110/65 100 Mechanical Ventilator 50 01/15/17 02:00 100 32 95/73 100 Mechanical Ventilator 50 01/15/17 01:05 101 36 50 01/15/17 01:00 100 33 107/58 100 Mechanical Ventilator 50 01/15/17 00:00 98.8 103 32 99/58 100 Mechanical Ventilator 50 01/15/17 00:00 50 01/15/17 00:00 103 5/21/17 23:30 106 33 92/56 100 Mechanical Ventilator 50 01/14/17 23:00 110 32 89/55 100 Mechanical Ventilator 50 01/14/17 22:37 116 36 50 01/14/17 22:30 115 34 88/57 100 Mechanical Ventilator 50 01/14/17 22:00 120 36 96/65 100 Mechanical Ventilator 50 01/14/17 22:00 119 86/61 01/14/17 21:56 101.0 01/14/17 21:30 128 37 97/59 100 Mechanical Ventilator 50 01/14/17 21:01 140 44 50 01/14/17 21:00 137 44 108/66 99 Mechanical Ventilator 50 01/14/17 20:30 101.0 140 44 143/80 99 Mechanical Ventilator 50 01/14/17 20:00 101.8 138 42 111/68 99 Mechanical Ventilator 50 01/14/17 20:00 138 01/14/17 20:00 50 01/14/17 19:05 135 33 50 01/14/17 18:00 110/61 01/14/17 18:00 127 37 97/61 100 Mechanical Ventilator 50 01/14/17 17:30 129 40 107/60 98 Mechanical Ventilator 50 01/14/17 17:00 129 41 50 01/14/17 17:00 96/63 01/14/17 17:00 130 41 96/63 100 Mechanical Ventilator 50 01/14/17 16:30 129 40 126/92 100 Mechanical Ventilator 50 01/14/17 16:00 98.0 127 42 113/69 100 Mechanical Ventilator 50 01/14/17 16:00 50 01/14/17 16:00 126 01/14/17 16:00 113/69 01/14/17 15:30 128 41 98/62 100 Mechanical Ventilator 50 01/14/17 15:00 89/49 01/14/17 15:00 128 37 89/47 100 Mechanical Ventilator 50 01/14/17 14:40 129 40 50 01/14/17 14:30 129 38 102/64 100 Mechanical Ventilator 50 01/14/17 14:00 128 42 107/57 100 Mechanical Ventilator 50 01/14/17 14:00 102/61 01/14/17 13:30 126 39 87/60 100 Mechanical Ventilator 50 01/14/17 13:15 127 95/55 01/14/17 13:00 125 36 95/55 100 Mechanical Ventilator 50 01/14/17 13:00 95/55 01/14/17 12:50 124 38 50 01/14/17 12:30 123 38 97/66 100 Mechanical Ventilator 50 01/14/17 12:00 98.5 123 40 95/61 100 Mechanical Ventilator 50 01/14/17 12:00 50 01/14/17 12:00 95/61 01/14/17 12:00 123 01/14/17 11:30 124 41 102/59 100 Mechanical Ventilator 50 01/14/17 11:00 128 43 92/58 100 Mechanical Ventilator 50 01/14/17 11:00 92/56 01/14/17 10:40 127 44 50 Status: awake Condition: critical HEENT: atraumatic, normocephalic Lungs: clear Heart: HR/BP stable, HR/BP unstable Abdomen: soft, non-tender, feeding tube Extremities: edema Decubiti: location Critical Care - Subjective ROS Limited/Unobtainable: No ICU Day: 4 Intubation Day: 4 Condition: critical EKG Rhythm: Sinus Rhythm FI02: 50 Vent Support Breath Rate: 14 Vent Support Mode: AC Vent Tidal Volume: 550 Sputum Amount: Scant PEEP: 5.0 PIP: 33 Secretions: small Drips: NS 75 cc.hour I&O: Intake and Output 01/14/17 01/15/17 19:00 07:00 Intake Total 1172.659 ml 836.634 ml Output Total 745 ml 595 ml Balance 427.659 ml 241.634 ml Free Water 30 ml IV Total 1022.659 ml 836.634 ml Other 120 ml Output Urine Total 730 ml 580 ml Drainage Total 15 ml 15 ml # Bowel Movements 3 4 CXR: ET tube too high, new bilateral infiltrate ET-Tube: 8.0 ET Position: 24 Labs: Laboratory Tests Test 01/14/17 20:00 01/15/17 05:15 01/15/17 06:43 Random Vancomycin Level 8.2 ug/mL White Blood Count 9.3 K/UL (4.8-10.8) Red Blood Count 2.84 M/UL (4.70-6.10) L Hemoglobin 8.4 G/DL (14.2-18.0) L Hematocrit 25.4 % (42.0-52.0) L Mean Corpuscular Volume 89 FL (80-99) Mean Corpuscular Hemoglobin 29.4 PG (27.0-31.0) Mean Corpuscular Hemoglobin Concent 32.8 G/DL (32.0-36.0) Red Cell Distribution Width 14.9 % (11.6-14.8) H Platelet Count 224 K/UL (150-450) Mean Platelet Volume 8.0 FL (6.5-10.1) Neutrophils (%) (Auto) 82.0 % (45.0-75.0) H Lymphocytes (%) (Auto) 9.5 % (20.0-45.0) L Monocytes (%) (Auto) 7.5 % (1.0-10.0) Eosinophils (%) (Auto) 0.7 % (0.0-3.0) Basophils (%) (Auto) 0.3 % (0.0-2.0) Sodium Level 143 mEQ/L (135-145) Potassium Level 4.0 mEQ/L (3.4-4.9) Chloride Level 108 mEQ/L (98-107) H Carbon Dioxide Level 21 mEQ/L (20-30) Anion Gap 14 (5-15) Blood Urea Nitrogen 18 mg/dL (7-23) Creatinine 0.9 mg/dL (0.7-1.2) Estimat Glomerular Filtration Rate > 60 mL/min (>60) Glucose Level 127 mg/dL (74-106) H Calcium Level 7.3 mg/dL (8.6-10.2) L Magnesium Level 2.1 mg/dL (1.7-2.5) Carcinoembryonic Antigen 2.5 ng/mL Arterial Blood pH 7.387 (7.350-7.450) Arterial Blood Partial Pressure CO2 34.3 mmHg (35.0-45.0) L Arterial Blood Partial Pressure O2 115.3 mmHg (75.0-100.0) H Arterial Blood HCO3 20.2 mmol/L (22.0-26.0) L Arterial Blood Oxygen Saturation 97.4 % (92.0-98.0) Arterial Blood Base Excess -4.3 Flaquito Test Positive IVY CONNELLY January 15, 2017 10:26
--- NOTE | 2017-01-15 10:28 | General Progress Note ---
Progress Note Progress Note Pt doesn't have any relatives, he himself is unable to sign for his consents. He is in ICU, in a critical condition. He needs central line, blood products, and other invasive procedures to give him a chance to improve. IVY CONNELLY January 15, 2017 10:28
--- NOTE | 2017-01-15 10:57 | General Progress Note ---
Assessment/Plan Status: unchanged Status Narrative off pressors Assessment/Plan status; Now on Vent- recovering from Septic shock Acute renal failure- improved Dehydration- improving Hyperkalemia , due to above improved HypoNatremia due to above, improved Sz disorder Alcohol and drug abuse by history Anemia Empyema has chest drain Plan; whipple hemodynamic support Avoid Nephrotoxics- Monitor lytes and renal parameters Sz percautions Thiamin- Anemia wheat Subjective ROS Limited/Unobtainable: Yes Allergies: Coded Allergies: No Known Allergies (Verified , 01/25/10) Objective Last 24 Hour Vital Signs Date Time Temp Pulse Resp B/P Pulse Ox O2 Delivery O2 Flow Rate FiO2 01/15/17 10:31 113 34 40 01/15/17 10:00 112 35 101/56 100 Mechanical Ventilator 50 01/15/17 09:00 116 30 92/60 100 Mechanical Ventilator 50 01/15/17 08:59 110 31 40 01/15/17 08:00 98.5 117 36 118/60 100 Mechanical Ventilator 50 01/15/17 08:00 117 01/15/17 08:00 118/60 01/15/17 08:00 50 01/15/17 07:00 113 35 106/69 100 Mechanical Ventilator 50 01/15/17 06:54 112 26 50 01/15/17 06:00 112 34 123/83 100 Mechanical Ventilator 50 01/15/17 05:43 106 85/50 01/15/17 05:00 105 34 104/70 100 Mechanical Ventilator 50 01/15/17 05:00 100 33 50 01/15/17 04:00 101 01/15/17 04:00 50 01/15/17 04:00 98.4 101 33 101/60 100 Mechanical Ventilator 50 01/15/17 03:05 101 34 50 01/15/17 03:00 101 33 110/65 100 Mechanical Ventilator 50 01/15/17 02:00 100 32 95/73 100 Mechanical Ventilator 50 01/15/17 01:05 101 36 50 01/15/17 01:00 100 33 107/58 100 Mechanical Ventilator 50 01/15/17 00:00 98.8 103 32 99/58 100 Mechanical Ventilator 50 01/15/17 00:00 50 01/15/17 00:00 103 01/14/17 23:30 106 33 92/56 100 Mechanical Ventilator 50 01/14/17 23:00 110 32 89/55 100 Mechanical Ventilator 50 01/14/17 22:37 116 36 50 01/14/17 22:30 115 34 88/57 100 Mechanical Ventilator 50 01/14/17 22:00 120 36 96/65 100 Mechanical Ventilator 50 01/14/17 22:00 119 86/61 01/14/17 21:56 101.0 01/14/17 21:30 128 37 97/59 100 Mechanical Ventilator 50 01/14/17 21:01 140 44 50 01/14/17 21:00 137 44 108/66 99 Mechanical Ventilator 50 01/14/17 20:30 101.0 140 44 143/80 99 Mechanical Ventilator 50 01/14/17 20:00 101.8 138 42 111/68 99 Mechanical Ventilator 50 01/14/17 20:00 138 01/14/17 20:00 50 01/14/17 19:05 135 33 50 01/14/17 18:00 110/61 01/14/17 18:00 127 37 97/61 100 Mechanical Ventilator 50 01/14/17 17:30 129 40 107/60 98 Mechanical Ventilator 50 01/14/17 17:00 129 41 50 01/14/17 17:00 96/63 01/14/17 17:00 130 41 96/63 100 Mechanical Ventilator 50 01/14/17 16:30 129 40 126/92 100 Mechanical Ventilator 50 01/14/17 16:00 98.0 127 42 113/69 100 Mechanical Ventilator 50 01/14/17 16:00 50 01/14/17 16:00 126 01/14/17 16:00 113/69 01/14/17 15:30 128 41 98/62 100 Mechanical Ventilator 50 01/14/17 15:00 89/49 01/14/17 15:00 128 37 89/47 100 Mechanical Ventilator 50 01/14/17 14:40 129 40 50 01/14/17 14:30 129 38 102/64 100 Mechanical Ventilator 50 01/14/17 14:00 128 42 107/57 100 Mechanical Ventilator 50 01/14/17 14:00 102/61 01/14/17 13:30 126 39 87/60 100 Mechanical Ventilator 50 01/14/17 13:15 127 95/55 01/14/17 13:00 125 36 95/55 100 Mechanical Ventilator 50 01/14/17 13:00 95/55 01/14/17 12:50 124 38 50 01/14/17 12:30 123 38 97/66 100 Mechanical Ventilator 50 01/14/17 12:00 98.5 123 40 95/61 100 Mechanical Ventilator 50 01/14/17 12:00 50 01/14/17 12:00 95/61 01/14/17 12:00 123 01/14/17 11:30 124 41 102/59 100 Mechanical Ventilator 50 01/14/17 11:00 128 43 92/58 100 Mechanical Ventilator 50 01/14/17 11:00 92/56 Intake and Output 01/14/17 01/15/17 19:00 07:00 Intake Total 1172.659 ml 836.634 ml Output Total 745 ml 595 ml Balance 427.659 ml 241.634 ml Free Water 30 ml IV Total 1022.659 ml 836.634 ml Other 120 ml Output Urine Total 730 ml 580 ml Drainage Total 15 ml 15 ml # Bowel Movements 3 4 Laboratory Tests 01/14/17 20:00: Random Vancomycin Level 8.2 01/15/17 05:15: White Blood Count 9.3, Red Blood Count 2.84L, Hemoglobin 8.4L, Hematocrit 25.4L , Mean Corpuscular Volume 89, Mean Corpuscular Hemoglobin 29.4, Mean Corpuscular Hemoglobin Concent 32.8, Red Cell Distribution Width 14.9H, Platelet Count 224, Mean Platelet Volume 8.0, Neutrophils (%) (Auto) 82.0H, Lymphocytes (%) (Auto) 9.5L, Monocytes (%) (Auto) 7.5, Eosinophils (%) (Auto) 0.7, Basophils (%) (Auto) 0.3, Sodium Level 143, Potassium Level 4.0, Chloride Level 108H, Carbon Dioxide Level 21, Anion Gap 14, Blood Urea Nitrogen 18, Creatinine 0.9, Estimat Glomerular Filtration Rate > 60, Glucose Level 127H, Calcium Level 7.3L, Magnesium Level 2.1, Carcinoembryonic Antigen 2.5 01/15/17 06:43: Arterial Blood pH 7.387, Arterial Blood Partial Pressure CO2 34.3L, Arterial Blood Partial Pressure O2 115.3H, Arterial Blood HCO3 20.2L, Arterial Blood Oxygen Saturation 97.4, Arterial Blood Base Excess -4.3, Flaquito Test Positive Height (Feet): 5 Height (Inches): 7.00 Weight (Pounds): 158 General Appearance: no apparent distress Neck: stiff neck Cardiovascular: tachycardia Respiratory/Chest: decreased breath sounds Abdomen: distended Objective other PE not changed SHANNON GOODSON January 15, 2017 10:57
--- NOTE | 2017-01-15 11:37 | Infectious Diseases Prog Note ---
Assessment/Plan Assessment/Plan A: The patient is a 61-year-old male with Left pleural effusion / Empyema Gram stain : GPR, GPC and GNR , Cx : Strp mono hemolytic SP CTube by IR Ultrasound-guided left thoracentesis yielding 1160 cc of of pus from 2 different loculated collections pt refusing VATS Probable pneumonia Fever SP Asystole and code blue 01/14 VDRF Seizure disorder. History of alcohol abuse, marijuana abuse Anemia HIV test : Neg Homelessness Noncompliance NKDA Full Code PLAN: cont on vancomycin and cefepime day # f/u cultures Monitor CBC Monitor BMP Monitor chest x-ray VATS if pt consents cont resp support Subjective Allergies: Coded Allergies: No Known Allergies (Verified , 01/25/10) Subjective Fever Objective Vital Signs Last 24 Hour Vital Signs Date Time Temp Pulse Resp B/P Pulse Ox O2 Delivery O2 Flow Rate FiO2 01/15/17 11:00 109 25 102/67 100 Mechanical Ventilator 50 01/15/17 10:31 113 34 40 01/15/17 10:00 112 35 101/56 100 Mechanical Ventilator 50 01/15/17 09:00 116 30 92/60 100 Mechanical Ventilator 50 01/15/17 08:59 110 31 40 01/15/17 08:00 98.5 117 36 118/60 100 Mechanical Ventilator 50 01/15/17 08:00 117 01/15/17 08:00 118/60 01/15/17 08:00 50 01/15/17 07:00 113 35 106/69 100 Mechanical Ventilator 50 01/15/17 06:54 112 26 50 01/15/17 06:00 112 34 123/83 100 Mechanical Ventilator 50 01/15/17 05:43 106 85/50 01/15/17 05:00 105 34 104/70 100 Mechanical Ventilator 50 01/15/17 05:00 100 33 50 01/15/17 04:00 101 01/15/17 04:00 50 01/15/17 04:00 98.4 101 33 101/60 100 Mechanical Ventilator 50 01/15/17 03:05 101 34 50 01/15/17 03:00 101 33 110/65 100 Mechanical Ventilator 50 01/15/17 02:00 100 32 95/73 100 Mechanical Ventilator 50 01/15/17 01:05 101 36 50 01/15/17 01:00 100 33 107/58 100 Mechanical Ventilator 50 01/15/17 00:00 98.8 103 32 99/58 100 Mechanical Ventilator 50 01/15/17 00:00 50 01/15/17 00:00 103 01/14/17 23:30 106 33 92/56 100 Mechanical Ventilator 50 01/14/17 23:00 110 32 89/55 100 Mechanical Ventilator 50 01/14/17 22:37 116 36 50 01/14/17 22:30 115 34 88/57 100 Mechanical Ventilator 50 01/14/17 22:00 120 36 96/65 100 Mechanical Ventilator 50 01/14/17 22:00 119 86/61 01/14/17 21:56 101.0 01/14/17 21:30 128 37 97/59 100 Mechanical Ventilator 50 01/14/17 21:01 140 44 50 01/14/17 21:00 137 44 108/66 99 Mechanical Ventilator 50 01/14/17 20:30 101.0 140 44 143/80 99 Mechanical Ventilator 50 01/14/17 20:00 101.8 138 42 111/68 99 Mechanical Ventilator 50 01/14/17 20:00 138 01/14/17 20:00 50 01/14/17 19:05 135 33 50 01/14/17 18:00 110/61 01/14/17 18:00 127 37 97/61 100 Mechanical Ventilator 50 01/14/17 17:30 129 40 107/60 98 Mechanical Ventilator 50 01/14/17 17:00 129 41 50 01/14/17 17:00 96/63 01/14/17 17:00 130 41 96/63 100 Mechanical Ventilator 50 01/14/17 16:30 129 40 126/92 100 Mechanical Ventilator 50 01/14/17 16:00 98.0 127 42 113/69 100 Mechanical Ventilator 50 01/14/17 16:00 50 01/14/17 16:00 126 01/14/17 16:00 113/69 01/14/17 15:30 128 41 98/62 100 Mechanical Ventilator 50 01/14/17 15:00 89/49 01/14/17 15:00 128 37 89/47 100 Mechanical Ventilator 50 01/14/17 14:40 129 40 50 01/14/17 14:30 129 38 102/64 100 Mechanical Ventilator 50 01/14/17 14:00 128 42 107/57 100 Mechanical Ventilator 50 01/14/17 14:00 102/61 01/14/17 13:30 126 39 87/60 100 Mechanical Ventilator 50 01/14/17 13:15 127 95/55 01/14/17 13:00 125 36 95/55 100 Mechanical Ventilator 50 01/14/17 13:00 95/55 01/14/17 12:50 124 38 50 01/14/17 12:30 123 38 97/66 100 Mechanical Ventilator 50 01/14/17 12:00 98.5 123 40 95/61 100 Mechanical Ventilator 50 01/14/17 12:00 50 01/14/17 12:00 95/61 01/14/17 12:00 123 01/14/17 11:30 124 41 102/59 100 Mechanical Ventilator 50 Height (Feet): 5 Height (Inches): 7.00 Weight (Pounds): 158 HEENT: anicteric Respiratory/Chest: normal breath sounds Cardiovascular: normal rate Abdomen: no organomegaly Laboratory Tests Test 01/14/17 20:00 01/15/17 05:15 01/15/17 06:43 Random Vancomycin Level 8.2 ug/mL White Blood Count 9.3 K/UL (4.8-10.8) Red Blood Count 2.84 M/UL (4.70-6.10) L Hemoglobin 8.4 G/DL (14.2-18.0) L Hematocrit 25.4 % (42.0-52.0) L Mean Corpuscular Volume 89 FL (80-99) Mean Corpuscular Hemoglobin 29.4 PG (27.0-31.0) Mean Corpuscular Hemoglobin Concent 32.8 G/DL (32.0-36.0) Red Cell Distribution Width 14.9 % (11.6-14.8) H Platelet Count 224 K/UL (150-450) Mean Platelet Volume 8.0 FL (6.5-10.1) Neutrophils (%) (Auto) 82.0 % (45.0-75.0) H Lymphocytes (%) (Auto) 9.5 % (20.0-45.0) L Monocytes (%) (Auto) 7.5 % (1.0-10.0) Eosinophils (%) (Auto) 0.7 % (0.0-3.0) Basophils (%) (Auto) 0.3 % (0.0-2.0) Sodium Level 143 mEQ/L (135-145) Potassium Level 4.0 mEQ/L (3.4-4.9) Chloride Level 108 mEQ/L (98-107) H Carbon Dioxide Level 21 mEQ/L (20-30) Anion Gap 14 (5-15) Blood Urea Nitrogen 18 mg/dL (7-23) Creatinine 0.9 mg/dL (0.7-1.2) Estimat Glomerular Filtration Rate > 60 mL/min (>60) Glucose Level 127 mg/dL (74-106) H Calcium Level 7.3 mg/dL (8.6-10.2) L Magnesium Level 2.1 mg/dL (1.7-2.5) Carcinoembryonic Antigen 2.5 ng/mL Arterial Blood pH 7.387 (7.350-7.450) Arterial Blood Partial Pressure CO2 34.3 mmHg (35.0-45.0) L Arterial Blood Partial Pressure O2 115.3 mmHg (75.0-100.0) H Arterial Blood HCO3 20.2 mmol/L (22.0-26.0) L Arterial Blood Oxygen Saturation 97.4 % (92.0-98.0) Arterial Blood Base Excess -4.3 Flaquito Test Positive Current Medications Medications (Trade) Dose Ordered Sig/Abbi Route PRN Reason Start Time Stop Time Status Last Admin Dose Admin Acetaminophen (Tylenol) 650 mg Q4H PRN ORAL T>100.5 01/12/17 20:30 02/11/17 20:29 01/14/17 20:57 Albuterol/ Ipratropium (DuoNeb 0.5-3(2.5)mg/3ml) 3 ml Q4H PRN HHN Shortness of Breath 01/12/17 20:30 01/17/17 20:29 Cefepime HCl 1 gm/ Dextrose 55 ml @ 110 mls/hr Q12HR IV 01/12/17 21:00 01/19/17 20:59 01/15/17 09:00 Chlorhexidine Gluconate (Kate-Hex 2%) 1 applic DAILY TOPIC 01/13/17 09:00 02/12/17 08:59 01/15/17 05:45 Dopamine HCl/ Dextrose (DOPamine 400mg/ 250ml) 250 ml @ 0 mls/hr Q24H IV 01/13/17 08:00 02/12/17 07:59 01/14/17 08:12 Heparin Sodium (Porcine) 5000 units 5,000 units EVERY 12 HOURS SUBQ 01/14/17 21:00 02/13/17 20:59 01/15/17 08:58 Lorazepam (Ativan 2mg/ml 1ml) 2 mg Q2H PRN IV For Anxiety 01/12/17 21:15 01/19/17 21:14 01/15/17 08:57 Morphine Sulfate 4 mg 4 mg Q4H PRN IVP For Pain 01/12/17 21:15 01/19/17 21:14 01/12/17 23:47 Nitroglycerin (Ntg) 0.4 mg Q5M PRN SL Prn Chest Pain 01/12/17 20:05 02/11/17 20:04 Ondansetron HCl (Zofran) 4 mg Q6H PRN IVP Nausea & Vomiting 01/12/17 20:30 02/11/17 20:29 Pantoprazole (Protonix) 40 mg ACBREAKFAST ORAL 01/13/17 06:30 02/12/17 06:29 01/15/17 06:12 Phosphorus (Phospha 250 Neutral) 250 mg THREE TIMES A DAY ORAL 01/13/17 09:00 02/12/17 08:59 01/15/17 08:59 Polyethylene Glycol (Miralax) 17 gm DAILYPRN PRN ORAL Constipation 01/12/17 20:30 02/11/17 20:29 Potassium Chloride (KCl 10% 40mEq Oral solution) 40 meq DAILY NG 01/13/17 09:00 02/12/17 08:59 01/15/17 08:59 Promethazine HCl/ Codeine (Phenergan with Codeine) 5 ml Q4H PRN ORAL For Cough 01/12/17 20:30 02/11/17 20:29 Propranolol HCl (Inderal) 10 mg Q8HR ORAL 01/12/17 22:00 02/11/17 21:59 Sodium Chloride (Sodium Chloride 1000ml bag) 1,000 ml @ 75 mls/hr [id number] IV 01/12/17 20:30 02/11/17 20:29 01/15/17 01:03 Temazepam (Restoril) 15 mg HSPRN PRN ORAL Insomnia 01/12/17 21:00 01/19/17 20:59 Thiamine HCl (Vitamin B1) 100 mg DAILY ORAL 01/13/17 09:00 02/12/17 08:59 01/15/17 08:59 Vancomycin HCl (Vanco rx to dose) 1 ea DAILY PRN MISC Per rx protocol 01/13/17 09:00 02/12/17 08:59 Vancomycin HCl/ Dextrose (Vancomycin/D5W) 275 ml @ 183.333 mls/hr Q24H IVPB 01/14/17 23:00 01/19/17 22:59 01/14/17 23:26 ALEJANDRA TEE M.D. January 15, 2017 11:37
[2017-01-15] MEDS ORDERED: NS 275ml ONE (17:10)
[2017-01-15] MEDS: Vancomycin 1250mg/D5W 275ml IVPB SCH ×2 (22:13)
[2017-01-16] VITALS (24 sets, daily range): BP systolic 86–130; BP diastolic 51–77
[2017-01-16] MEDS: Dyna-Hex 2% Top Sol 8oz TOPIC SCH (04:12)
[2017-01-16 05:46] LABS: INR 1.1 (0.9-1.1); PROTHROMBIN TIME 11.6 SEC (9.30-11.50)
[2017-01-16] MEDS: Propranolol 10mg tab ORAL SCH (05:51)
[2017-01-16 06:12] LABS: ALANINE AMINOTRANSFERASE 20 U/L (3-41); ALBUMIN/GLOBULIN RATIO 0.3 (1.0-2.7); ANION GAP 14 (5-15); ASPARTATE AMINO TRANSFERASE 27 U/L (5-40); CALCIUM 7.5 mg/dL (8.6-10.2); CARBON DIOXIDE 21 mEQ/L (20-30); CHLORIDE 111 mEQ/L (98-107); GLOMERULAR FILTRATION RATE > 60 mL/min (>60); LACTATE DEHYDROGENASE 399 U/L (135-230); MAGNESIUM 1.9 mg/dL (1.7-2.5); PHOSPHORUS 3.2 mg/dL (2.5-4.8); POTASSIUM 4.4 mEQ/L (3.4-4.9); SODIUM 146 mEQ/L (135-145); TOTAL PROTEIN 4.9 g/dL (6.6-8.7)
[2017-01-16 06:34] LABS: HEMOLYSIS 11; IRON < 10 ug/dL (59-158); TOTAL IRON BINDING CAPACITY 113 ug/dL (250-400)
[2017-01-16 07:10] LABS: MEAN CORPUSCULAR HEMOGLOBIN 28.4 PG (27.0-31.0); MEAN CORPUSCULAR HGB CONC 31.4 G/DL (32.0-36.0); MEAN CORPUSCULAR VOLUME 90 FL (80-99); MEAN PLATELET VOLUME 7.5 FL (6.5-10.1); PLATELET COUNT 241 K/UL (150-450); RED CELL DISTRIBUTION WIDTH 15.3 % (11.6-14.8); WHITE BLOOD COUNT 9.7 K/UL (4.8-10.8)
[2017-01-16] MEDS: DOPamine 400mg/250ml 250 ML IV SCH (07:39)
[2017-01-16 08:12] LABS: ABG BASE EXCESS -3.8; ABG PCO2 37.6 mmHg (35.0-45.0)
[2017-01-16 08:13] LABS: ABG ALLEN TEST POSITIVE
[2017-01-16] MEDS: Phospha 250 Neutral tab ORAL SCH (08:31)
[2017-01-16] MEDS: Cefepime HCl 1 GM in D5W 55 ML IV SCH ×2 (08:31→20:37)
[2017-01-16] MEDS: Thiamine 100mg tab ORAL SCH (08:31)
[2017-01-16] MEDS: KCl 10% 40mEq/30ml liquid NG SCH (08:31)
[2017-01-16] MEDS: Heparin 5000 units/ml inj SUBQ SCH ×2 (08:40→20:38)
[2017-01-16 09:06] LABS: ERYTHROCYTE SEDIMENTATION RATE 110 MM/HR (0-20)
--- NOTE | 2017-01-16 09:46 | Pulmonolgy Critical Care Note ---
Critical Care - Asmt/Plan Problems: (1) Acute respiratory failure (2) Empyema (3) Altered level of consciousness (4) Sepsis (5) Severe anemia Respiratory: monitor respiratory rate, adjust FIO2, CXR Cardiac: continue to monitor HR/BP, other - off drips Renal: F/U I&O, check electrolytes Infectious Disease: check cultures, other - strep in pleural fluid Gastrointestinal: continue feedings/current rate Endocrine: monitor blood sugar Hematologic: monitor H/H Neurologic: PRN Morphine Affect: PRN ativan Prophylaxis: Protonix, Heparin Time Spent (Minutes): 40 Notes Reviewed: ID Discussed with: nurses, consultants Critical Care - Objective Last 24 Hour Vital Signs Date Time Temp Pulse Resp B/P Pulse Ox O2 Delivery O2 Flow Rate FiO2 01/16/17 09:29 113 31 40 01/16/17 08:00 109 01/16/17 08:00 99.5 110 22 108/51 98 Mechanical Ventilator 40 01/16/17 08:00 40 01/16/17 07:39 101/53 01/16/17 07:18 100.5 01/16/17 07:00 114 24 101/53 99 Mechanical Ventilator 40 01/16/17 06:59 119 31 40 01/16/17 06:00 112 24 124/64 99 Mechanical Ventilator 40 01/16/17 05:51 111 98/52 01/16/17 05:05 110 26 40 01/16/17 05:00 113 24 114/54 99 Mechanical Ventilator 40 01/16/17 04:00 40 01/16/17 04:00 105 01/16/17 04:00 99.7 104 24 129/64 99 Mechanical Ventilator 40 01/16/17 03:00 104 24 114/56 99 Mechanical Ventilator 40 01/16/17 02:44 105 29 40 01/16/17 02:00 108 24 86/65 99 Mechanical Ventilator 40 01/16/17 01:00 101 24 130/61 99 Mechanical Ventilator 40 01/16/17 00:50 100 29 40 01/16/17 00:00 100 24 116/66 99 Mechanical Ventilator 40 01/16/17 00:00 40 01/16/17 00:00 98.8 100 24 116/66 99 Mechanical Ventilator 40 01/16/17 00:00 100 01/15/17 23:00 97 24 97/62 99 Mechanical Ventilator 40 01/15/17 22:54 104 30 40 01/15/17 22:00 103 26 93/58 99 Mechanical Ventilator 40 01/15/17 21:35 101 90/40 01/15/17 21:15 101 31 40 01/15/17 21:00 101 30 101/56 99 Mechanical Ventilator 40 01/15/17 20:00 105 01/15/17 20:00 99.5 105 26 121/48 99 Mechanical Ventilator 40 01/15/17 20:00 40 01/15/17 19:27 108 32 40 01/15/17 19:00 104 26 90/40 99 Mechanical Ventilator 40 01/15/17 18:00 113 26 94/65 99 Mechanical Ventilator 40 01/15/17 17:00 112 30 110/76 100 Mechanical Ventilator 40 01/15/17 16:54 114 28 40 01/15/17 16:00 110 01/15/17 16:00 99.7 111 32 100/69 100 Mechanical Ventilator 40 01/15/17 16:00 40 01/15/17 15:07 106 28 40 01/15/17 15:00 107 22 107/80 100 Mechanical Ventilator 40 01/15/17 14:00 103 28 99/68 100 Mechanical Ventilator 40 01/15/17 13:30 113 115/70 01/15/17 13:00 120 20 115/70 100 Mechanical Ventilator 40 01/15/17 12:58 112 31 40 01/15/17 12:00 99.8 112 24 108/65 100 Mechanical Ventilator 40 01/15/17 12:00 115 01/15/17 12:00 50 01/15/17 11:00 109 25 102/67 100 Mechanical Ventilator 40 01/15/17 10:31 113 34 40 01/15/17 10:00 112 35 101/56 100 Mechanical Ventilator 50 Status: sedated Condition: critical Lungs: chest wall tender Heart: HR/BP stable, HR/BP unstable Abdomen: soft, feeding tube Extremities: no C/C/E, edema Decubiti: location Critical Care - Subjective ROS Limited/Unobtainable: Yes ICU Day: 4 Intubation Day: 4 Condition: critical EKG Rhythm: Sinus Rhythm FI02: 40 Vent Support Breath Rate: 14 Vent Support Mode: AC Vent Tidal Volume: 550 Sputum Amount: Moderate PEEP: 5.0 PIP: 28 Fluids: NS 75 cc.hour Tube Feeding Amount: 20 I&O: Intake and Output 01/15/17 01/16/17 19:00 07:00 Intake Total 880 ml 1545.00 ml Output Total 500 ml 420 ml Balance 380 ml 1125.00 ml Free Water 100 ml IV Total 880 ml 1305.00 ml Tube Feeding 140 ml Output Urine Total 500 ml 420 ml Other 0 ml 0 ml # Bowel Movements 1 CXR: no changes ET-Tube: 8.0 ET Position: 26 Labs: Laboratory Tests Test 01/16/17 04:00 01/16/17 07:55 White Blood Count 9.7 K/UL (4.8-10.8) Red Blood Count 3.10 M/UL (4.70-6.10) L Hemoglobin 8.8 G/DL (14.2-18.0) L Hematocrit 27.9 % (42.0-52.0) L Mean Corpuscular Volume 90 FL (80-99) Mean Corpuscular Hemoglobin 28.4 PG (27.0-31.0) Mean Corpuscular Hemoglobin Concent 31.4 G/DL (32.0-36.0) L Red Cell Distribution Width 15.3 % (11.6-14.8) H Platelet Count 241 K/UL (150-450) Mean Platelet Volume 7.5 FL (6.5-10.1) Neutrophils (%) (Auto) % (45.0-75.0) Lymphocytes (%) (Auto) % (20.0-45.0) Monocytes (%) (Auto) % (1.0-10.0) Eosinophils (%) (Auto) % (0.0-3.0) Basophils (%) (Auto) % (0.0-2.0) Neutrophils % (Manual) Pending Lymphocytes % (Manual) Pending Platelet Estimate Pending Platelet Morphology Pending Erythrocyte Sedimentation Rate 110 MM/HR (0-20) H Reticulocyte Count 1.0 % (0.0-2.0) Prothrombin Time 11.6 SEC (9.30-11.50) H Prothromb Time International Ratio 1.1 (0.9-1.1) Activated Partial Thromboplast Time 40 SEC (23-33) H Stool Occult Blood Positive (NEGATIVE) Sodium Level 146 mEQ/L (135-145) H Potassium Level 4.4 mEQ/L (3.4-4.9) Chloride Level 111 mEQ/L (98-107) H Carbon Dioxide Level 21 mEQ/L (20-30) Anion Gap 14 (5-15) Blood Urea Nitrogen 19 mg/dL (7-23) Creatinine 1.0 mg/dL (0.7-1.2) Estimat Glomerular Filtration Rate > 60 mL/min (>60) Glucose Level 116 mg/dL (74-106) H Calcium Level 7.5 mg/dL (8.6-10.2) L Phosphorus Level 3.2 mg/dL (2.5-4.8) Magnesium Level 1.9 mg/dL (1.7-2.5) Iron Level < 10 ug/dL (59-158) L Total Iron Binding Capacity 113 ug/dL (250-400) L Percent Iron Saturation 9 % (15-50) L Unsaturated Iron Binding 103 ug/dL (112-346) L Total Bilirubin 0.3 mg/dL (0.0-1.2) Aspartate Amino Transf (AST/SGOT) 27 U/L (5-40) Alanine Aminotransferase (ALT/SGPT) 20 U/L (3-41) Alkaline Phosphatase 143 U/L (40-129) H Lactate Dehydrogenase 399 U/L (135-230) H Total Protein 4.9 g/dL (6.6-8.7) L Albumin 1.3 g/dL (3.5-5.2) L Globulin 3.6 g/dL Albumin/Globulin Ratio 0.3 (1.0-2.7) L Carcinoembryonic Antigen 2.7 ng/mL Vitamin B12 Level > 2000 pg/mL (211-946) H Folate Pending Arterial Blood pH 7.368 (7.350-7.450) Arterial Blood Partial Pressure CO2 37.6 mmHg (35.0-45.0) Arterial Blood Partial Pressure O2 79.8 mmHg (75.0-100.0) Arterial Blood HCO3 21.2 mmol/L (22.0-26.0) L Arterial Blood Oxygen Saturation 93.9 % (92.0-98.0) Arterial Blood Base Excess -3.8 Flaquito Test Positive IVY CONNELLY January 16, 2017 09:46
[2017-01-16 10:09] LABS: BAND NEUTROPHILS % (MANUAL) 2 % (0-8); BASOPHILS % (MANUAL) 1 % (0-2); EOSINOPHILS % (MANUAL) 1 % (0-3); LYMPHOCYTES % (MANUAL) 12 % (20-45); NEUTROPHILS % (MANUAL) 74 % (45-75); PLATELET ESTIMATE ADEQUATE; PLATELET MORPHOLOGY NORMAL; TOTAL CELLS COUNTED 100
[2017-01-16 10:11] LABS: ANISOCYTOSIS 1+; HYPOCHROMASIA 1+
[2017-01-16 10:24] LABS: PATH BLOOD SMEAR/OMC SENT TO PATHOLOGIST
--- NOTE | 2017-01-16 10:32 | General Progress Note ---
Assessment/Plan Status: stable - from renal stand, unchanged - from pulm stand Assessment/Plan status; Now on Vent- recovering from Septic shock Acute renal failure- improved Dehydration- improving Hyperkalemia , due to above improved HypoNatremia due to above, improved Sz disorder Alcohol and drug abuse by history Anemia Empyema has chest drain Plan; IV Iron whipple hemodynamic support Avoid Nephrotoxics- Monitor lytes and renal parameters Sz percautions Thiamin- Subjective ROS Limited/Unobtainable: Yes Allergies: Coded Allergies: No Known Allergies (Verified , 01/25/10) Objective Last 24 Hour Vital Signs Date Time Temp Pulse Resp B/P Pulse Ox O2 Delivery O2 Flow Rate FiO2 01/16/17 10:00 108 24 99/57 100 Mechanical Ventilator 40 01/16/17 09:29 113 31 40 01/16/17 09:00 105 24 122/64 99 Mechanical Ventilator 40 01/16/17 08:00 109 01/16/17 08:00 99.5 110 22 108/51 98 Mechanical Ventilator 40 01/16/17 08:00 40 01/16/17 07:39 101/53 01/16/17 07:18 100.5 01/16/17 07:00 114 24 101/53 99 Mechanical Ventilator 40 01/16/17 06:59 119 31 40 01/16/17 06:00 112 24 124/64 99 Mechanical Ventilator 40 01/16/17 05:51 111 98/52 01/16/17 05:05 110 26 40 01/16/17 05:00 113 24 114/54 99 Mechanical Ventilator 40 01/16/17 04:00 40 01/16/17 04:00 105 01/16/17 04:00 99.7 104 24 129/64 99 Mechanical Ventilator 40 01/16/17 03:00 104 24 114/56 99 Mechanical Ventilator 40 01/16/17 02:44 105 29 40 01/16/17 02:00 108 24 86/65 99 Mechanical Ventilator 40 01/16/17 01:00 101 24 130/61 99 Mechanical Ventilator 40 01/16/17 00:50 100 29 40 01/16/17 00:00 100 24 116/66 99 Mechanical Ventilator 40 01/16/17 00:00 40 01/16/17 00:00 98.8 100 24 116/66 99 Mechanical Ventilator 40 01/16/17 00:00 100 01/15/17 23:00 97 24 97/62 99 Mechanical Ventilator 40 01/15/17 22:54 104 30 40 01/15/17 22:00 103 26 93/58 99 Mechanical Ventilator 40 01/15/17 21:35 101 90/40 01/15/17 21:15 101 31 40 01/15/17 21:00 101 30 101/56 99 Mechanical Ventilator 40 01/15/17 20:00 105 01/15/17 20:00 99.5 105 26 121/48 99 Mechanical Ventilator 40 01/15/17 20:00 40 01/15/17 19:27 108 32 40 01/15/17 19:00 104 26 90/40 99 Mechanical Ventilator 40 01/15/17 18:00 113 26 94/65 99 Mechanical Ventilator 40 01/15/17 17:00 112 30 110/76 100 Mechanical Ventilator 40 01/15/17 16:54 114 28 40 01/15/17 16:00 110 01/15/17 16:00 99.7 111 32 100/69 100 Mechanical Ventilator 40 01/15/17 16:00 40 01/15/17 15:07 106 28 40 01/15/17 15:00 107 22 107/80 100 Mechanical Ventilator 40 01/15/17 14:00 103 28 99/68 100 Mechanical Ventilator 40 01/15/17 13:30 113 115/70 01/15/17 13:00 120 20 115/70 100 Mechanical Ventilator 40 01/15/17 12:58 112 31 40 01/15/17 12:00 99.8 112 24 108/65 100 Mechanical Ventilator 40 01/15/17 12:00 115 01/15/17 12:00 50 01/15/17 11:00 109 25 102/67 100 Mechanical Ventilator 40 01/15/17 10:31 113 34 40 Intake and Output 01/15/17 01/16/17 19:00 07:00 Intake Total 880 ml 1545.00 ml Output Total 500 ml 420 ml Balance 380 ml 1125.00 ml Free Water 100 ml IV Total 880 ml 1305.00 ml Tube Feeding 140 ml Output Urine Total 500 ml 420 ml Other 0 ml 0 ml # Bowel Movements 1 Laboratory Tests 01/16/17 04:00: White Blood Count 9.7, Red Blood Count 3.10L, Hemoglobin 8.8L, Hematocrit 27.9L , Mean Corpuscular Volume 90, Mean Corpuscular Hemoglobin 28.4, Mean Corpuscular Hemoglobin Concent 31.4L, Red Cell Distribution Width 15.3H, Platelet Count 241, Mean Platelet Volume 7.5, Neutrophils (%) (Auto) , Lymphocytes (%) (Auto) , Monocytes (%) (Auto) , Eosinophils (%) (Auto) , Basophils (%) (Auto) , Differential Total Cells Counted 100, Neutrophils % ( Manual) 74, Lymphocytes % (Manual) 12L, Monocytes % (Manual) 10, Eosinophils % ( Manual) 1, Basophils % (Manual) 1, Band Neutrophils 2, Platelet Estimate Adequate, Platelet Morphology Normal, Hypochromasia 1+, Anisocytosis 1+, Erythrocyte Sedimentation Rate 110H, Reticulocyte Count 1.0, Prothrombin Time 11.6H, Prothromb Time International Ratio 1.1, Activated Partial Thromboplast Time 40H, Stool Occult Blood Positive, Sodium Level 146H, Potassium Level 4.4, Chloride Level 111H, Carbon Dioxide Level 21, Anion Gap 14, Blood Urea Nitrogen 19, Creatinine 1.0, Estimat Glomerular Filtration Rate > 60, Glucose Level 116H , Calcium Level 7.5L, Phosphorus Level 3.2, Magnesium Level 1.9, Iron Level < 10L, Total Iron Binding Capacity 113L, Percent Iron Saturation 9L, Unsaturated Iron Binding 103L, Total Bilirubin 0.3, Aspartate Amino Transf (AST/SGOT) 27, Alanine Aminotransferase (ALT/SGPT) 20, Alkaline Phosphatase 143H, Lactate Dehydrogenase 399H, Total Protein 4.9L, Albumin 1.3L, Globulin 3.6, Albumin/ Globulin Ratio 0.3L, Carcinoembryonic Antigen 2.7, Vitamin B12 Level > 2000H, Folate [Pending] 01/16/17 07:55: Arterial Blood pH 7.368, Arterial Blood Partial Pressure CO2 37.6, Arterial Blood Partial Pressure O2 79.8, Arterial Blood HCO3 21.2L, Arterial Blood Oxygen Saturation 93.9, Arterial Blood Base Excess -3.8, Flaquito Test Positive Height (Feet): 5 Height (Inches): 7.00 Weight (Pounds): 162 General Appearance: no apparent distress Cardiovascular: tachycardia Respiratory/Chest: decreased breath sounds Abdomen: soft Objective other PE not changed SHANNON GOODSON January 16, 2017 10:32
--- NOTE | 2017-01-16 10:41 | Infectious Diseases Prog Note ---
Assessment/Plan Assessment/Plan A: The patient is a 61-year-old male with Left pleural effusion / Empyema Gram stain : GPR, GPC and GNR , Cx : Strp mono hemolytic SP CTube by IR Ultrasound-guided left thoracentesis yielding 1160 cc of of pus from 2 different loculated collections pt refusing VATS Pneumonia Fever improving SP Asystole and code blue 01/14 VDRF Seizure disorder. History of alcohol abuse, marijuana abuse Anemia HIV test : Neg Homelessness Noncompliance NKDA Full Code PLAN: cont on vancomycin and cefepime day # f/u cultures ( Sp ) Monitor CBC Monitor BMP Monitor chest x-ray VATS if pt consents cont resp support Subjective Allergies: Coded Allergies: No Known Allergies (Verified , 01/25/10) Subjective Fever improving , on vent Objective Vital Signs Last 24 Hour Vital Signs Date Time Temp Pulse Resp B/P Pulse Ox O2 Delivery O2 Flow Rate FiO2 01/16/17 10:00 108 24 99/57 100 Mechanical Ventilator 40 01/16/17 09:29 113 31 40 01/16/17 09:00 105 24 122/64 99 Mechanical Ventilator 40 01/16/17 08:00 109 01/16/17 08:00 99.5 110 22 108/51 98 Mechanical Ventilator 40 01/16/17 08:00 40 01/16/17 07:39 101/53 01/16/17 07:18 100.5 01/16/17 07:00 114 24 101/53 99 Mechanical Ventilator 40 01/16/17 06:59 119 31 40 01/16/17 06:00 112 24 124/64 99 Mechanical Ventilator 40 01/16/17 05:51 111 98/52 01/16/17 05:05 110 26 40 01/16/17 05:00 113 24 114/54 99 Mechanical Ventilator 40 01/16/17 04:00 40 01/16/17 04:00 105 01/16/17 04:00 99.7 104 24 129/64 99 Mechanical Ventilator 40 01/16/17 03:00 104 24 114/56 99 Mechanical Ventilator 40 01/16/17 02:44 105 29 40 01/16/17 02:00 108 24 86/65 99 Mechanical Ventilator 40 01/16/17 01:00 101 24 130/61 99 Mechanical Ventilator 40 01/16/17 00:50 100 29 40 01/16/17 00:00 100 24 116/66 99 Mechanical Ventilator 40 01/16/17 00:00 40 01/16/17 00:00 98.8 100 24 116/66 99 Mechanical Ventilator 40 01/16/17 00:00 100 01/15/17 23:00 97 24 97/62 99 Mechanical Ventilator 40 01/15/17 22:54 104 30 40 01/15/17 22:00 103 26 93/58 99 Mechanical Ventilator 40 01/15/17 21:35 101 90/40 01/15/17 21:15 101 31 40 01/15/17 21:00 101 30 101/56 99 Mechanical Ventilator 40 01/15/17 20:00 105 01/15/17 20:00 99.5 105 26 121/48 99 Mechanical Ventilator 40 01/15/17 20:00 40 01/15/17 19:27 108 32 40 01/15/17 19:00 104 26 90/40 99 Mechanical Ventilator 40 01/15/17 18:00 113 26 94/65 99 Mechanical Ventilator 40 01/15/17 17:00 112 30 110/76 100 Mechanical Ventilator 40 01/15/17 16:54 114 28 40 01/15/17 16:00 110 01/15/17 16:00 99.7 111 32 100/69 100 Mechanical Ventilator 40 01/15/17 16:00 40 01/15/17 15:07 106 28 40 01/15/17 15:00 107 22 107/80 100 Mechanical Ventilator 40 01/15/17 14:00 103 28 99/68 100 Mechanical Ventilator 40 01/15/17 13:30 113 115/70 01/15/17 13:00 120 20 115/70 100 Mechanical Ventilator 40 01/15/17 12:58 112 31 40 01/15/17 12:00 99.8 112 24 108/65 100 Mechanical Ventilator 40 01/15/17 12:00 115 01/15/17 12:00 50 01/15/17 11:00 109 25 102/67 100 Mechanical Ventilator 40 Height (Feet): 5 Height (Inches): 7.00 Weight (Pounds): 162 HEENT: anicteric Respiratory/Chest: normal breath sounds Cardiovascular: regular rhythm Abdomen: non distended Laboratory Tests Test 01/16/17 04:00 01/16/17 07:55 White Blood Count 9.7 K/UL (4.8-10.8) Red Blood Count 3.10 M/UL (4.70-6.10) L Hemoglobin 8.8 G/DL (14.2-18.0) L Hematocrit 27.9 % (42.0-52.0) L Mean Corpuscular Volume 90 FL (80-99) Mean Corpuscular Hemoglobin 28.4 PG (27.0-31.0) Mean Corpuscular Hemoglobin Concent 31.4 G/DL (32.0-36.0) L Red Cell Distribution Width 15.3 % (11.6-14.8) H Platelet Count 241 K/UL (150-450) Mean Platelet Volume 7.5 FL (6.5-10.1) Neutrophils (%) (Auto) % (45.0-75.0) Lymphocytes (%) (Auto) % (20.0-45.0) Monocytes (%) (Auto) % (1.0-10.0) Eosinophils (%) (Auto) % (0.0-3.0) Basophils (%) (Auto) % (0.0-2.0) Differential Total Cells Counted 100 Neutrophils % (Manual) 74 % (45-75) Lymphocytes % (Manual) 12 % (20-45) L Monocytes % (Manual) 10 % (1-10) Eosinophils % (Manual) 1 % (0-3) Basophils % (Manual) 1 % (0-2) Band Neutrophils 2 % (0-8) Platelet Estimate Adequate Platelet Morphology Normal Hypochromasia 1+ Anisocytosis 1+ Erythrocyte Sedimentation Rate 110 MM/HR (0-20) H Reticulocyte Count 1.0 % (0.0-2.0) Prothrombin Time 11.6 SEC (9.30-11.50) H Prothromb Time International Ratio 1.1 (0.9-1.1) Activated Partial Thromboplast Time 40 SEC (23-33) H Stool Occult Blood Positive (NEGATIVE) Sodium Level 146 mEQ/L (135-145) H Potassium Level 4.4 mEQ/L (3.4-4.9) Chloride Level 111 mEQ/L (98-107) H Carbon Dioxide Level 21 mEQ/L (20-30) Anion Gap 14 (5-15) Blood Urea Nitrogen 19 mg/dL (7-23) Creatinine 1.0 mg/dL (0.7-1.2) Estimat Glomerular Filtration Rate > 60 mL/min (>60) Glucose Level 116 mg/dL (74-106) H Calcium Level 7.5 mg/dL (8.6-10.2) L Phosphorus Level 3.2 mg/dL (2.5-4.8) Magnesium Level 1.9 mg/dL (1.7-2.5) Iron Level < 10 ug/dL (59-158) L Total Iron Binding Capacity 113 ug/dL (250-400) L Percent Iron Saturation 9 % (15-50) L Unsaturated Iron Binding 103 ug/dL (112-346) L Total Bilirubin 0.3 mg/dL (0.0-1.2) Aspartate Amino Transf (AST/SGOT) 27 U/L (5-40) Alanine Aminotransferase (ALT/SGPT) 20 U/L (3-41) Alkaline Phosphatase 143 U/L (40-129) H Lactate Dehydrogenase 399 U/L (135-230) H Total Protein 4.9 g/dL (6.6-8.7) L Albumin 1.3 g/dL (3.5-5.2) L Globulin 3.6 g/dL Albumin/Globulin Ratio 0.3 (1.0-2.7) L Carcinoembryonic Antigen 2.7 ng/mL Vitamin B12 Level > 2000 pg/mL (211-946) H Folate Pending Arterial Blood pH 7.368 (7.350-7.450) Arterial Blood Partial Pressure CO2 37.6 mmHg (35.0-45.0) Arterial Blood Partial Pressure O2 79.8 mmHg (75.0-100.0) Arterial Blood HCO3 21.2 mmol/L (22.0-26.0) L Arterial Blood Oxygen Saturation 93.9 % (92.0-98.0) Arterial Blood Base Excess -3.8 Flaquito Test Positive Current Medications Medications (Trade) Dose Ordered Sig/Abbi Route PRN Reason Start Time Stop Time Status Last Admin Dose Admin Acetaminophen (Tylenol) 650 mg Q4H PRN ORAL T>100.5 01/12/17 20:30 02/11/17 20:29 01/16/17 06:19 Albuterol/ Ipratropium (DuoNeb 0.5-3(2.5)mg/3ml) 3 ml Q4H PRN HHN Shortness of Breath 01/12/17 20:30 01/17/17 20:29 Cefepime HCl 1 gm/ Dextrose 55 ml @ 110 mls/hr Q12HR IV 01/12/17 21:00 01/30/17 20:59 01/16/17 08:31 Chlorhexidine Gluconate (Kate-Hex 2%) 1 applic DAILY TOPIC 01/13/17 09:00 02/12/17 08:59 01/16/17 04:12 Dopamine HCl/ Dextrose (DOPamine 400mg/ 250ml) 250 ml @ 0 mls/hr Q24H IV 01/13/17 08:00 02/12/17 07:59 01/14/17 08:12 Heparin Sodium (Porcine) 5000 units 5,000 units EVERY 12 HOURS SUBQ 01/14/17 21:00 02/13/17 20:59 01/16/17 08:40 Iron Sucrose 100 mg/Sodium Chloride 60 ml @ 240 mls/hr BEDTIME IVPB 01/16/17 21:00 01/20/17 21:14 UNV Iron Sucrose/ Sodium Chloride (Venofer/Sodium Chloride) 120 ml @ 240 mls/hr ONCE ONCE IVPB 01/16/17 10:30 01/16/17 10:59 UNV Lorazepam (Ativan 2mg/ml 1ml) 2 mg Q2H PRN IV For Anxiety 01/12/17 21:15 01/19/17 21:14 01/15/17 14:42 Morphine Sulfate 4 mg 4 mg Q4H PRN IVP For Pain 01/12/17 21:15 01/19/17 21:14 01/12/17 23:47 Pantoprazole (Protonix) 40 mg ACBREAKFAST ORAL 01/13/17 06:30 02/12/17 06:29 01/16/17 05:51 Polyethylene Glycol (Miralax) 17 gm DAILYPRN PRN ORAL Constipation 01/12/17 20:30 02/11/17 20:29 Sodium Chloride (Sodium Chloride 1000ml bag) 1,000 ml @ 75 mls/hr [id number] IV 01/12/17 20:30 02/11/17 20:29 01/16/17 04:12 Vancomycin HCl (Vanco rx to dose) 1 ea DAILY PRN MISC Per rx protocol 01/13/17 09:00 02/12/17 08:59 Vancomycin HCl 1.25 gm/Dextrose 275 ml @ 183.333 mls/hr Q24H IVPB 01/14/17 23:00 01/30/17 22:59 01/15/17 22:13 ALEJANDRA TEE M.D. January 16, 2017 10:40
--- NOTE | 2017-01-16 10:45 | Diagnostic Imaging Report ---
Indication: DYSPNEA Technique: One view of the chest Comparison: 01/15/2017 Findings: Left upper lung loculated hydropneumothorax is unchanged. Consolidation in the left lung appears slightly improved. Opacities in the right lung appear less discrete and nodular, more diffuse. Stable satisfactory positions of endotracheal tube, nasogastric tube, left subclavian central venous catheter. Degenerative changes of the right shoulder persists. The heart size is normal. Drainage catheter in the left pleural space is again demonstrated. Impression: Slightly shifting pulmonary parenchymal opacities, as described. Otherwise, little guide changer one day
[2017-01-16] MEDS ORDERED: Iron Sucrose 200 MG in NS 110 ML IVPB ONE (13:00)
[2017-01-16] MEDS ORDERED: Tubing IV Secondary IV ONE (17:55)
[2017-01-16] MEDS: Vancomycin 1250mg/D5W 275ml IVPB SCH ×2 (23:18)
[2017-01-17] VITALS (22 sets, daily range): BP systolic 56–128; BP diastolic 27–72
[2017-01-17] MEDS: LORazepam Inj 2mg/ml 1ml IV PRN (00:14)
[2017-01-17] MEDS: DOPamine 400mg/250ml 250 ML IV SCH (02:49)
[2017-01-17 05:35] LABS: BASOPHILS % (AUTO) 0.6 % (0.0-2.0); EOSINOPHILS % (AUTO) 0.3 % (0.0-3.0); LYMPHOCYTES % (AUTO) 12.8 % (20.0-45.0); MEAN CORPUSCULAR HEMOGLOBIN 28.5 PG (27.0-31.0); MEAN CORPUSCULAR HGB CONC 30.4 G/DL (32.0-36.0); MEAN CORPUSCULAR VOLUME 94 FL (80-99); NEUTROPHILS % (AUTO) 83.3 % (45.0-75.0); PLATELET COUNT 269 K/UL (150-450); RED CELL DISTRIBUTION WIDTH 16.1 % (11.6-14.8); WHITE BLOOD COUNT 7.5 K/UL (4.8-10.8)
[2017-01-17 06:04] LABS: ALBUMIN/GLOBULIN RATIO 0.2 (1.0-2.7); CALCIUM 7.4 mg/dL (8.6-10.2); CREATININE 1.5 mg/dL (0.7-1.2); GLOMERULAR FILTRATION RATE 57.4 mL/min (>60); MAGNESIUM 1.9 mg/dL (1.7-2.5); PHOSPHORUS 5.6 mg/dL (2.5-4.8); POTASSIUM 5.3 mEQ/L (3.4-4.9); TOTAL PROTEIN 4.8 g/dL (6.6-8.7)
--- NOTE | 2017-01-17 07:27 | Emergency Room Report ---
History of Present Illness General Chief Complaint: Generalized Weakness Source: Medical Record Present Illness Allergies: Coded Allergies: No Known Allergies (Verified , 01/25/10) Nursing Documentation-[facility] Past Medical History Deferred: Pt Cognitively Impaired Past Medical History: No History, Except For Hx Neurological Problems: Yes Hx Seizures: Yes - not currently on meds Physical Exam Vital Signs Date Time Temp Pulse Resp B/P Pulse Ox O2 Delivery O2 Flow Rate FiO2 01/08/17 11:24 96.8 117 20 141/92 99 Room Air 01/09/17 16:07 2.0 01/12/17 07:00 21 Medical Decision Making Diagnostic Impression: Primary Impression: Pleural effusion associated with pulmonary infection Additional Impressions: Sepsis Cardiac arrest ER Course This is a 61-year-old male admitted to the ICU for severe sepsis. A CODE BLUE was called and I responded. Per nursing staff he became bradycardic in asystole. CPR was started. Patient is arty been intubated. He received 3 rounds of epinephrine and the way radial pulse. Patient is placed back in the ICU with continual medical care. Prognosis is very poor. Last Vital Signs Date Time Temp Pulse Resp B/P Pulse Ox O2 Delivery O2 Flow Rate FiO2 01/17/17 07:12 51 22 100 01/17/17 06:45 105/45 Mechanical Ventilator 01/17/17 04:00 99.8 97 01/12/17 15:57 15.0 Disposition: ADMITTED INPATIENT Condition: Serious Referrals: [facility],REFERR[facility] (PCP) AI TORRES M.D. January 17, 2017 07:27
[2017-01-17] MEDS ORDERED: Tubing IV Secondary IV ONE (07:31)
--- NOTE | 2017-01-17 10:54 | Cardiology Report ---
APPROVED REPORT EKG Measurement Heart [id number] Sinus tachycardia with frequent premature ventricular complexes T wave abnormality, consider inferior ischemia Abnormal ECG poor tracing qulaity
--- NOTE | 2017-01-17 15:36 | Emergency Room Report ---
History of Present Illness General Chief Complaint: Generalized Weakness Source: Medical Record Present Illness Allergies: Coded Allergies: No Known Allergies (Verified , 01/25/10) Nursing Documentation-[facility] Past Medical History Deferred: Pt Cognitively Impaired Past Medical History: No History, Except For Hx Neurological Problems: Yes Hx Seizures: Yes - not currently on meds Physical Exam Vital Signs Date Time Temp Pulse Resp B/P Pulse Ox O2 Delivery O2 Flow Rate FiO2 01/08/17 11:24 96.8 117 20 141/92 99 Room Air 01/09/17 16:07 2.0 01/12/17 07:00 21 Procedures Critical Care Time Critical Care Time i. I feel this is a highly complex case requiring extensive working including EKG/Rhythm strip, Xray/CT/US, Blood/urine lab work, repeat exams while in ED, and administration of strong opiates/narcotics for pain control, admission to hospital or close patient follow up. Total time: 30 min bedside evaluation and treatment excludes procedures (EKG). Reason for critical care: Cardiac arrest Possible complications: hypotension, hypertension, PA, shock, arrhythmias, metabolic acidosis, end organ damage, respiratory failure. Interventions: Chest compressions, epinephrine Course: Patient in cardiac arrest. Initial rhythm asystole. Patient had coded multiple times the previous night. Prognosis is poor. Patient is on pressors. Patient given epi x3. Chest compressions continued. After multiple rhythm checks patient remains in asystole. Prognosis is poor. Resuscitative efforts terminated. Patient expires Consultations: nursing staff, EMS, family Performed by: Dr Diggs Tolerated well condition = j. because of unstable vital signs this patient had a condition that could potentially threaten life or limb. I feel this is a critical patient who required my full attention while patient was considered critical. Total Critical Care Time excluding procedures was greater than 35 minutes CPR/Code Blue CPR/Code Blue Narrative Patient in cardiac arrest. Initial rhythm asystole. Patient had coded multiple times the previous night. Prognosis is poor. Patient is on pressors. Patient given epi x3. Chest compressions continued. After multiple rhythm checks patient remains in asystole. Prognosis is poor. Resuscitative efforts terminated. Patient expires Medical Decision Making Diagnostic Impression: Primary Impression: Pleural effusion associated with pulmonary infection Additional Impressions: Cardiac arrest Sepsis ER Course Patient in cardiac arrest. Initial rhythm asystole. Patient had coded multiple times the previous night. Prognosis is poor. Patient is on pressors. Patient given epi x3. Chest compressions continued. After multiple rhythm checks patient remains in asystole. Prognosis is poor. Resuscitative efforts terminated. Patient expires Last Vital Signs Date Time Temp Pulse Resp B/P Pulse Ox O2 Delivery O2 Flow Rate FiO2 01/17/17 07:12 51 22 100 01/17/17 06:45 105/45 Mechanical Ventilator 01/17/17 04:00 99.8 97 01/12/17 15:57 15.0 Status: unchanged Disposition: Condition: Referrals: [facility],REFERR[facility] (PCP) ARI DIGGS M.D. January 17, 2017 15:36
--- NOTE | 2017-01-17 18:23 | Diagnostic Imaging Report ---
APPROVED REPORT CPT Code: 81728 Present Symptoms Shortness of breath BILATERAL: Imaging reveals a patent deep venous system bilaterally. There is no evidence of thrombus within the femoral, popliteal or tibial segments. The greater saphenous veins are also within normal limits. Doppler indicates normal spontaneous flow within these segments.
[2017-01-17] MEDS ORDERED: Iron Sucrose 100 MG in NS 55 ML IVPB SCH (21:00)
--- NOTE | 2017-01-18 04:31 | Consultation ---
DATE OF CONSULTATION: 01/09/2017 HISTORY OF PRESENT ILLNESS: This is a very pleasant 61-year-old gentleman that I was asked to evaluate for a possible left chest pneumothorax. The patient is status post drainage of left pleural effusion, which is found to be loculated. His chest x-ray is somewhat improved after the procedure, however, a small left chest pneumothorax remains present. I have discussed the risks, benefits as well as other medical options with the patient in regards to his condition. At this point in time, the patient does not want to have any surgical procedure or chest tube placed and he would like only to follow up with conservative management, which basically would be a repeat chest x-ray. pulmonary team and we both agree that the patient is quite stable and at this point in time, we can follow up with serial chest x-rays. If the chest x-ray would show a large pneumothorax and if the patient will agree, we will place the chest tube and we will consider VATS. However, for now, the only option is to repeat a chest x-ray. Trey Adair M.D. DR: [email or web address] JOB#: [id number] CC:
== END 2017-01-17 07:32 | disposition expired | DRG 720 ==
LOC: EDBD 11:23 → EMR 11:59 → 2E 13:35 → EDBEDREQ 13:53 → 4E 01-10 18:09 → 2W 01-12 11:08 → ICU 01-12 19:13
PROC: 0W9B3ZZ Drainage of Left Pleural Cavity, Percutaneous Approach (ICD-10-PCS; 2017-01-08)
PROC: 0W9B30Z Drainage of Left Pleural Cavity with Drainage Device, Percutaneous Approach (ICD-10-PCS; principal; 2017-01-10)
PROC: 5A1955Z Respiratory Ventilation, Greater than 96 Consecutive Hours (ICD-10-PCS; 2017-01-12)
PROC: 0BH17EZ Insertion of Endotracheal Airway into Trachea, Via Natural or Artificial Opening (ICD-10-PCS; 2017-01-12)
PROC: 05H633Z Insertion of Infusion Device into Left Subclavian Vein, Percutaneous Approach (ICD-10-PCS; 2017-01-13)
PROC: 3E033XZ Introduction of Vasopressor into Peripheral Vein, Percutaneous Approach (ICD-10-PCS; 2017-01-13)
DX: A41.9 Sepsis, unspecified organism (principal); N17.0 Acute kidney failure with tubular necrosis; J96.00 Acute respiratory failure, unspecified whether with hypoxia or hypercapnia; R65.21 Severe sepsis with septic shock; J86.9 Pyothorax without fistula; J18.9 Pneumonia, unspecified organism; J90 Pleural effusion, not elsewhere classified; E46 Unspecified protein-calorie malnutrition; I46.9 Cardiac arrest, cause unspecified; G40.909 Epilepsy, unspecified, not intractable, without status epilepticus; E87.5 Hyperkalemia; E86.0 Dehydration; E11.9 Type 2 diabetes mellitus without complications; F10.21 Alcohol dependence, in remission; E87.1 Hypo-osmolality and hyponatremia; J95.811 Postprocedural pneumothorax; Y83.8 Other surgical procedures as the cause of abnormal reaction of the patient, or of later complication, without mention of misadventure at the time of the procedure; Y92.230 Patient room in hospital as the place of occurrence of the external cause; Z91.19 Patient's noncompliance with other medical treatment and regimen; Z59.0 Homelessness; Z53.29 Procedure and treatment not carried out because of patient's decision for other reasons; Z68.25 Body mass index [BMI] 25.0-25.9, adult; F12.10 Cannabis abuse, uncomplicated; D50.9 Iron deficiency anemia, unspecified; E83.41 Hypermagnesemia; D69.6 Thrombocytopenia, unspecified
CPT/HCPCS: 36415; 36569; 36600; 71010; 71250; 75989; 76937; 76942; 80048; 80053; 80061; 80185; 80202; 80300; 80329; 81003; 82164; 82270; 82378; 82550; 82607; 82728; 82746; 82803; 82962; 82977; 83036; 83540; 83550; 83605; 83615; 83690; 83735; 83880; 84100; 84134; 84443; 84550; 85007; 85025; 85044; 85060; 85610; 85651; 85730; 86140; 87040; 87070; 87081; 87181; 87205; 88104; 89051; 92950; 93005; 93970; 94002; 94003; 94664; 94760; 97802; C9399; J8499